=== PATIENT | female | born 1955 | race Caucasian/White ===

== ENCOUNTER 2016-10-14 08:43 | Inpatient (IN) ==
[2016-10-14] MEDS ORDERED: D50W SYRINGE ONE ×2 (08:45→08:46)
[2016-10-14] MEDS ORDERED: D50W SYRINGE IV ONE (08:53)
[2016-10-14] MEDS ORDERED: D5 NS 1,000 ML ONE (08:56)
[2016-10-14 09:30] LABS: MANUAL DIFF NEEDED? NO
[2016-10-14 09:32] LABS: BASO% 0.4 % (0.0-0.8); EOS# 0.01 X1000 (0.0-0.7); EOS% 0.4 % (0.0-10.0); HEMATOCRIT 28.8 % (37.0-47.0); HEMOGLOBIN 8.9 g/dL (12.0-16.0); IMM GRAN# 0.02 X1000 (0.0-0.04); IMM GRAN% 0.7 % (0.0-0.5); LYMPH% 28.6 % (20.5-51.1); MCH 29.4 PG (27-31); MCHC 30.9 g/dL (33-37); MONO% 7.1 % (1.7-9.3); MPV 10.4 FL (7.4-10.4); NEUT% 62.8 % (42.2-75.2); PLT 141 X1000 (130-400); RBC 3.03 XMIL (4.2-5.4)
[2016-10-14 09:38] LABS: BE -11.3 mmoll (-3.0-3.0); BLOOD TYPE ARTERIAL; METHB 1.3 % (0.0-1.5); PCO2(98.6) 28 mmHg (35-45); PO2(98.6) 67 mmHg (60-100); SAMPLE BLOOD; SAO2 91.5 % (95.0-100.0); THB 10.6 g/dL (11.5-17.4)
[2016-10-14 09:41] LABS: DRAW SITE OTHER
[2016-10-14 09:42] LABS: ALLEN TEST NO; MODALITY ROOM AIR
--- NOTE | 2016-10-14 09:49 | EKG Report ---
Test Performed on : 10/14/2016 09:36:58 AM Test Reason : AMS Blood Pressure : / mmHG Vent. Rate : 064 BPM Atrial Rate : 065 BPM P-R Int : 176 ms QRS Dur : 060 ms QT Int : 482 ms P-R-T Axes : 000 085 134 degrees QTc Int : 497 ms Normal sinus rhythm. Low voltage QRS Septal infarct (cited on or before 01-NOV-2009) ST \T\ T wave abnormality, consider inferior ischemia Abnormal ECG When compared with ECG of 14-OCT-2016 09:35, (Unconfirmed) Sinus rhythm. has replaced Junctional rhythm. Inverted T waves have replaced nonspecific T wave abnormality in Inferior leads Nonspecific T wave abnormality, improved in Anterior leads Nonspecific T wave abnormality, worse in Lateral leads Unconfirmed Result
[2016-10-14 10:05] LABS: URINE SOURCE CLEAN CATCH
[2016-10-14 10:09] LABS: INR 0.87 (0.86-1.15); PROTIME 12.2 Seconds (12.1-15.5); PTT PL 31.9 Seconds (22.6-43.9)
[2016-10-14 10:10] LABS: AGAP 13; ALBUMIN 2.3 g/dL (3.5-5.0); ALKALINE PHOSPHATASE 65 U/L (32-104); BUN 29 mg/dL (8-22); CALCIUM 7.7 mg/dL (8.8-10.2); CHLORIDE 118 mmol/L (98-107); CK PROFILE 29 U/L (24-173); COSMO 292; GOT 16 U/L (10-30); GPT 15 U/L (10-36); POTASSIUM 5.1 mmol/L (3.5-5.1); SODIUM 146 mmol/L (136-145); TCO2 15 mmol/L (25-35); TOTAL BILIRUBIN < 0.15 mg/dL (0.20-1.00)
[2016-10-14 10:14] LABS: BILIRUBIN URINE NEGATIVE (NEGATIVE); BLOOD URINE TRACE (NEGATIVE); CLARITY SLIGHTLY CLOUDY (CLEAR); COLOR YELLOW; GLUCOSE URINE NEGATIVE (NEGATIVE); LEUKOCYTES URINE 2+ (NEGATIVE); NITRITE URINE NEGATIVE (NEGATIVE); PROTEIN URINE TRACE mg/dL (NEGATIVE); SP GRAVITY URINE 1.015; UROBILINOGEN URINE NORMAL
[2016-10-14 10:15] LABS: URINE WBC 40 /HPF (<10)
[2016-10-14 10:16] LABS: URINE CULTURE PL NEEDED? YES; URINE EPITHELIAL CELLS <10 /HPF (<10)
[2016-10-14] MEDS ORDERED: NS 1,000 ML IV ONE (12:43)
[2016-10-14] MEDS ORDERED: LEVAQUIN 500 MG in NS 100 ML IV ONE (12:51)
--- NOTE | 2016-10-14 13:00 | Diag Imaging Result Document ---
PROCEDURE NAME: CHEST-PORTABLE - 10/14/2016 PORTABLE CHEST X-RAY, 10/14/2016: COMPARISON: None. FINDINGS: The lungs are normally expanded and clear. Heart size and mediastinal contours are normal. No pneumothorax or pleural effusion. IMPRESSION: Negative exam.
[2016-10-14] MEDS: DUONEB (A & A) INH SCH ×3 (16:12→22:40)
[2016-10-14] MEDS ORDERED: NEO-SYNEPHRINE 50 MG in NS 250 ML IV SCH (18:30)
[2016-10-14] MEDS: HUMALOG DOSE (PARKWAY) SUBQ SCH (20:58)
[2016-10-14] MEDS: NEO-SYNEPHRINE 50 MG in NS 250 ML IV SCH (20:58)
[2016-10-14] MEDS: NS 1,000 ML IV SCH (20:58)
[2016-10-15] MEDS: DUONEB (A & A) INH SCH ×5 (03:20→19:15)
[2016-10-15] MEDS: HUMALOG DOSE (PARKWAY) SUBQ SCH ×6 (06:10→20:47)
[2016-10-15 07:20] LABS: HEMATOCRIT 24.8 % (37.0-47.0); HEMOGLOBIN 7.5 g/dL (12.0-16.0); MCH 29.1 PG (27-31); MCHC 30.2 g/dL (33-37); MCV 96.1 FL (81-99); RBC 2.58 XMIL (4.2-5.4)
[2016-10-15 07:43] LABS: ALBUMIN 2.2 g/dL (3.5-5.0); CALCIUM 7.5 mg/dL (8.8-10.2); MAGNESIUM 2.4 mg/dL (1.5-2.7); POTASSIUM 5.4 mmol/L (3.5-5.1); TOTAL BILIRUBIN 0.2 mg/dL (0.20-1.00); TOTAL PROTEIN 4.1 g/dL (6.3-8.3)
[2016-10-15 09:08] LABS: OCCULT BLOOD 1 POSITIVE (NEGATIVE)
[2016-10-15] MEDS: NS 1,000 ML IV SCH ×2 (09:08→22:51)
[2016-10-15 12:19] LABS: C DIFF ANTIGEN PL NEGATIVE (NEGATIVE); C DIFF TOXIN PL NEGATIVE (NEGATIVE)
--- NOTE | 2016-10-15 13:23 | EKG Report ---
Test Performed on : 10/15/2016 1:15:01 PM Test Reason : r/o rhythm change Blood Pressure : / mmHG Vent. Rate : 096 BPM Atrial Rate : 096 BPM P-R Int : 152 ms QRS Dur : 062 ms QT Int : 350 ms P-R-T Axes : 081 076 243 degrees QTc Int : 442 ms Normal sinus rhythm. Low voltage QRS Cannot rule out Anterior infarct (cited on or before 01-NOV-2009) Abnormal ECG When compared with ECG of 14-OCT-2016 09:36, Vent. rate has increased BY 32 BPM Questionable change in initial forces of Anteroseptal leads ST no longer elevated in Inferior leads T wave inversion now evident in Anterior leads Confirmed by Marcos Chambers MD ([id number]) on 10/19/2016 8:21:59 AM
[2016-10-15] MEDS: NEO-SYNEPHRINE 50 MG in NS 250 ML IV SCH (14:40)
[2016-10-15] MEDS: PROTONIX 80 MG in NS 100 ML IV SCH (16:13)
--- NOTE | 2016-10-15 17:12 | Diag Imaging Result Document ---
PROCEDURE NAME: ABDOMEN/PELVIS W/O CONTRAST - 10/15/2016 CT ABDOMEN PELVIS WITHOUT CONTRAST: FINDINGS: No contrast administered per request of the referring provider. A dose reduction protocol was used. Compared to 01/01/2014. Images of the base of the thorax show bilateral pleural effusions, larger on the left than on the right. There is associated mild compressive atelectasis at the lung bases. There is anasarca. There is a small amount of ascites in the abdomen and pelvis. There is apparent generalized mesenteric edema which likely relates to the anasarca. The stomach is somewhat distended with debris. There is no evidence of bowel obstruction otherwise. There is minimal colonic diverticulosis. There is no diverticulitis identified. There is no abscess identified. There is no free air. There are no acute abnormalities of the liver, spleen, adrenal glands, or pancreas identified. There are no calcified gallstones seen. There is an approximately 1 cm stone in the left renal pelvis. There is no substantial hydronephrosis. There is a Barboza catheter in the urinary bladder. IMPRESSION: 1. Anasarca with bilateral pleural effusions, generalized mesenteric edema, and small amount of abdominal and pelvic ascites. 2. Somewhat distended stomach with debris. No evidence of bowel obstruction otherwise. 3. Minimal diverticulosis of the sigmoid colon. No evidence of diverticulitis. No abscess. No free air. 4. 1 cm stone in left renal pelvis. No substantial hydronephrosis.
--- NOTE | 2016-10-15 18:00 | HISTORY AND PHYSICAL ---
PRIMARY CARE PROVIDER: Dr. Sung. PRIMARY RESOURCE ANALYST: Dr. Simms. CHIEF COMPLAINT: Low blood sugar when found unresponsive. HISTORY OF PRESENT ILLNESS: Ms Kasia Mi is a 61-year-old female who presented to the ER after being found by her slumped over and unresponsive. She was found have a blood glucose level of 23 and she has a medical history of diabetes mellitus type 1, hypothyroidism, CKD stage 3, peptic ulcer disease. Also on admission she was found to be hypotensive and was started on Benito-Synephrine. She is currently still on Benito-Synephrine. She was anemic and a stool obtained to rule out blood was actually positive. She has been started on a Protonix drip and Carafate, clear liquid and abdominal CT is ordered. She had 4+ bacteria in the urine but asymptomatic. She was given a 1 time dose of Levaquin IV. She was admitted to the ICU to allow for the Benito- Synephrine drip, given the positive Hemoccult awaiting for transfer for [facility]. PAST MEDICAL HISTORY: Hypothyroidism, diabetes mellitus type 1 since age of 35 , osteoporosis, cervical cancer, CKD stage 3, iron deficiency anemia, history of peptic ulcer disease but no bleeding, neuropathy, hypertension, vitamin D deficiency. SURGICAL HISTORY: 1. Bilateral tubal ligation. 2. section. 3. 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 SOCIAL HISTORY: Five cigarettes per day for the last 28 years. Stopped drinking alcohol in 2006 and denies illicit drug use. She lives at home with her . FAMILY HISTORY: Mother had pancreatic cancer. Father from suicide. REVIEW OF SYSTEMS: Fourteen point review of systems were complete and all were negative except for those mentioned above HPI. LABORATORY DATA: On admit white blood cells 2000, hemoglobin 8.9, hematocrit 28.8, platelet count 141,000. INR 0.87, PTT 31.9. ABGs pH 7.30, pCO2 28, PO2 67, bicarb 15, base excess -11, lactate 2.2 this is on room air. Sodium was 146, potassium 5.1, BUN 29, creatinine 3.5 , glucose was 26 on admit, calcium 7.7, total bilirubin less than 0.15, AST 16, ALT 15, CK 29, troponin 0.105. Urinalysis trace protein, 10-20 red blood cells, 2+ white blood cells, TNTC white blood cells, microscopic 4+ bacteria present with yeast. Stool for occult blood was positive. C. difficile toxin negative. Alcohol negative. IMAGING: Chest x-ray negative for any acute findings. EKG normal sinus rhythm , rate 96, QTc is 442. PHYSICAL EXAMINATION: VITAL SIGNS: On admit temperature 96.8 degrees, heart rate 52, respiratory rate 18, blood pressure was 85/44, O2 saturation was 97% on room air, 90 pounds, 5 foot inches tall, BMI 16.8. GENERAL: Ms. Kasia Mi is alert, she is able answer all questions appropriately. She is in no acute distress. HEENT: Atraumatic, normocephalic. Pupils equal, round, reactive to light. Extraocular movements are intact. Mucous membranes are dry. NECK: No JVD or carotid bruits noted. CARDIOVASCULAR: S1, S2. Regular rate and rhythm. No rubs, gallops, murmurs. PULMONARY: Decreased in the bases, prolonged expiration. No accessory muscle use or work of breathing noted. GI: Soft, nontender, nondistended, positive bowel sounds x4. Apparently she has had 3 bowel movements in the last 24 hours. NEUROLOGIC: A and O x4. Moves all extremities equally. ASSESSMENT AND PLAN: 1. Hypoglycemia causing unresponsiveness, was admitted with a blood sugar of 23 received D50. 2. Diabetes mellitus type 1. Continue with the sliding scale insulin. Pattern blood glucoses. 3. History of iron deficiency anemia now with possible acute blood loss anemia secondary to possible gastrointestinal bleed. She has a positive heme stool, will start her on a Protonix drip, oral Carafate, clear liquid diet, abdominal, pelvic CT. Transfer to [facility] once bed available for GI consult. 4. History of peptic ulcer disease. See previous number. 5. Hypotension with history of hypertension currently requiring Benito-Synephrine to maintain a blood pressure the 100s and she is receiving saline at 75 an hour. 6. Chronic kidney disease stage 3. She is at baseline with her creatinine 3.5 on admit, baseline ranges anywhere from 3.5 up to 5.1. IV fluid hydration currently. 7. Hypothyroidism. TSH is 5.98, free T4 is 1.06. Will continue Synthroid. 8. Neuropathy, takes Neurontin at home, currently on hold. 9. Tobacco abuse. Cessation discussed. 10. Deep venous thrombosis prophylaxis sequential compression devices. Dictated by KALYN Joe for Seun Rashid MD cc: KALYN Joe MD Dr. Powell Dr. Shah MTDD
[2016-10-15 18:52] LABS: IRON SATURATION 48 %; TIBC 69 ug/dL; TOTAL IRON 33 ug/dL (49-151); UNBOUND IRON 36 ug/dL (112-346)
[2016-10-15] MEDS: CARAFATE LIQUID PO SCH (20:34)
[2016-10-15 23:07] LABS: FERRITIN 310 ng/mL (13-150)
[2016-10-16] MEDS: PROTONIX 80 MG in NS 100 ML IV SCH ×3 (00:45→22:58)
[2016-10-16] MEDS ORDERED: ROCEPHIN 1 GM/NS 1 GM/50 ML IVPB IV SCH (01:00)
[2016-10-16] MEDS ORDERED: VANCOMYCIN IV PER PHARMACY MISC SCH (01:00)
[2016-10-16] MEDS: CARAFATE LIQUID PO SCH ×4 (01:13→19:57)
--- NOTE | 2016-10-16 01:43 | PROGRESS NOTE ---
DATE: 10/15/2016 SUBJECTIVE: The patient notes that she is feeling much better, but still had a low blood sugar this morning. OBJECTIVE: Vital signs: Temp 97.2, pulse 98, respiratory 22, BP 125/61. General: Patient awake, alert, currently in no distress. Neck: Supple. Cardiovascular: Regular rate. Chest: Relatively clear. Abdomen: Soft. Extremities: Moves all extremities. ASSESSMENT: 1. Hypoglycemia, causing significant unresponsiveness prior to presenting to the ER, currently improved. 2. Diabetes type 1. Continue to follow her chronic renal failure. It appears to be her baseline, as her lab in January of 2016 was 4.4. 3. Diarrhea. C. difficile pending. 4. Hypertension. 5. Chronic kidney disease, appears to be her baseline. 6. Hypothyroidism. We will continue Synthroid. PLAN: We will continue to follow patient's labs and her blood sugar. We will continue to use a sliding scale insulin. Her WBCs have improved dramatically from 2.8 to 10.3. Hemoglobin and hematocrit have dropped minimally down to 7.5 and 24. Potassium is mildly elevated at 5.4. Creatinine unchanged at 3.6, unsure what her baseline is currently, although this appears to be her baseline, as the last labs in January 2016 were at 4.6 and 4.0. Further orders as needed. LABS: C. difficile is currently pending. She did have a occult blood positive. Further orders as needed. cc: Seun Rashid MD
[2016-10-16] MEDS ORDERED: VANCOMYCIN 1 GM/NS 1 GM/250 ML IVPB IV ONE ×2 (03:00)
[2016-10-16] MEDS: DUONEB (A & A) INH SCH ×6 (03:01→23:10)
[2016-10-16] MEDS: HUMALOG DOSE (PARKWAY) SUBQ SCH ×2 (06:32→12:05)
[2016-10-16 06:34] LABS: MANUAL DIFF NEEDED? NO
[2016-10-16] MEDS: NEO-SYNEPHRINE 50 MG in NS 250 ML IV SCH (06:40)
[2016-10-16 06:50] LABS: BASO% 0.1 % (0.0-0.8); EOS# 0.03 X1000 (0.0-0.7); EOS% 0.4 % (0.0-10.0); HEMATOCRIT 21.4 % (37.0-47.0); HEMOGLOBIN 6.4 g/dL (12.0-16.0); IMM GRAN# 0.01 X1000 (0.0-0.04); IMM GRAN% 0.1 % (0.0-0.5); LYMPH% 13.1 % (20.5-51.1); MCH 28.6 PG (27-31); MCHC 29.9 g/dL (33-37); MCV 95.5 FL (81-99); MONO# 0.49 X1000 (0.11-0.59); MONO% 7.1 % (1.7-9.3); MPV 10.1 FL (7.4-10.4); NEUT% 79.2 % (42.2-75.2); PLT 130 X1000 (130-400); RBC 2.24 XMIL (4.2-5.4)
[2016-10-16] MEDS ORDERED: SYNTHROID PO SCH (07:00)
[2016-10-16 07:36] LABS: AGAP 14; ALBUMIN 1.9 g/dL (3.5-5.0); ALKALINE PHOSPHATASE 90 U/L (32-104); BUN 33 mg/dL (8-22); CALCIUM 7.3 mg/dL (8.8-10.2); CHLORIDE 113 mmol/L (98-107); COSMO 281; GOT 21 U/L (10-30); GPT 15 U/L (10-36); MAGNESIUM 2.2 mg/dL (1.5-2.7); POTASSIUM 4.9 mmol/L (3.5-5.1); SODIUM 139 mmol/L (136-145); TCO2 12 mmol/L (25-35); TOTAL BILIRUBIN < 0.15 mg/dL (0.20-1.00)
[2016-10-16] MEDS ORDERED: D10W 1,000 ML IV SCH (09:05)
[2016-10-16] MEDS ORDERED: LASIX IV ONE ×2 (09:17→11:50)
--- NOTE | 2016-10-16 10:17 | PROGRESS NOTE ---
DATE: 10/16/2016 SUBJECTIVE: Today Ms. Mi referred to be doing okay. However, the attending nurse refers that her blood glucose has been dropping. Early this morning her fasting glucose was 35 and a recheck was 29. OBJECTIVE: Vital signs: Blood pressure is 92/58, pulse of 88, respirations 20 , temperature 97.2 degrees. General: Ms. Mi is a 61-year-old female. She was in bed. She did not seem to be in any remarkable distress. HEENT: Mucosa is pale and moist. Anicteric. Acyanotic. Neck: Supple. Chest: Air entry is bilaterally reduced. There are a few bibasilar crepitations. Cardiovascular: Regular rate and rhythm. Abdomen: Soft, nontender. There is an old infraumbilical surgical scar. Extremities: About 2+ pedal edema. CORRECTION WORKER: Patient is alert and oriented. Follows commands. Musculoskeletal: No limitations but there is edema all the way to the flank. LABORATORY DATA: WBC 6.88, hemoglobin is 6.4, platelet count of 130,000. Chemistry: Sodium is 139, potassium is 4.9, chloride is 113, bicarb is 12, BUN is 33, creatinine is 3.3 which is the patient's baseline. Albumin is 1.9. Urine so far is positive for gram positive cocci. MEDICATIONS: 1. Ceftriaxone 1 g q.24. 2. Albuterol inhaler. 3. Synthroid. 4. Vancomycin. 5. Pantoprazole drip. ASSESSMENT: Ms. Mi is a 61-year-old female who was admitted yesterday due to altered mental status. Upon presentation, patient was found to have extreme hypoglycemia and anemia was admitted for further medical care. 1. Altered mental status due toxic metabolic encephalopathy (from hypoglycemia and urinary tract infection). 2. Chronic kidney disease stage V. The patient continues to have adequate urine output even at home. 3. Non-gap metabolic acidosis consistent with the degree of renal failure. 4. Normocytic anemia with Hemoccult positive. This has dropped significantly since admission which is concerning for possible GI bleed. The patient will be transferred to [facility] for GI consult. 5. Protein calorie malnutrition. Evidenced by hypoalbuminemia. 6. Hypotension. I think this is a combination of sepsis and also GI bleed. We will continue addressing this. The patient is currently on phenylephrine on a titration dose. Gram-positive cocci urinary tract infection. We are pending the ID and sensitivity. Patient is on antibiotics. PLAIN: So in general Ms. Mi is relatively stable. However, blood glucose continues to be low which I think is a combination of the insulin she was taking and the fact that she does not have very good renal output. The insulin tends to stay longer in her blood causing the persistent hypoglycemia. We will therefore put the patient on D10 to go at 50 mL/h in an attempt to optimize her glycemia. We will also give the patient an infusion of albumin with Lasix to improve on the edema. As I said, the [facility]. Critical time spent 45 minutes cc: Daniel Castro MD MTDStephie
[2016-10-16] MEDS ORDERED: ALBUMIN 25% IV ONE (14:03)
[2016-10-16] MEDS ORDERED: NS 1,000 ML IV SCH (14:03)
[2016-10-16] MEDS: D5 NS 1,000 ML IV SCH (14:50)
--- NOTE | 2016-10-16 15:06 | HISTORY AND PHYSICAL ---
PRIMARY CARE DOCTOR: Dr. Sung. BALANCE STAFF STAKER: Dr. Cordelia Simms. HISTORY OF PRESENT ILLNESS: She presented with low blood sugar and found unresponsive, apparently hypotensive. This 61-year-old presented to the ER after found by her slumped over and unresponsive. She was found to have blood glucose level at 23. She has a medical history of diabetes mellitus type 1, hypothyroidism, chronic kidney disease stage 3, peptic ulcer disease. Also on admission, found to be hypotensive and started on Benito-Synephrine and was on Benito-Synephrine and got transferred over here to [place]. She is anemic and stool obtained to rule out blood was actually positive. She has been started on Protonix drip, Carafate, and a clear liquid diet. Abdominal CT was ordered. She has 4+ bacteria in the urine but asymptomatic. Given a one time dose of Levaquin and transferred here for further evaluation. Will probably need an EGD and colonoscopy. PAST MEDICAL HISTORY: 1. Hypothyroidism. 2. Diabetes mellitus, type 1, since age 35. 3. Osteoporosis. 4. History of cervical cancer. 5. Chronic kidney disease stage 3. 6. Iron deficiency anemia. 7. History of peptic ulcer disease, but no bleeding. 8. History of peripheral polyneuropathy. 9. Hypertension. 10. Vitamin D deficiency. PAST SURGICAL HISTORY: 1. Bilateral tubal ligation. 2. section. 3. Right 4th toe amputation secondary to a diabetic foot ulcer. SOCIAL HISTORY: Five cigarettes per day for the last 28 years. Stopped drinking alcohol in 2006. She denies any history of illicit drug use. Lives at home with her . FAMILY HISTORY: Mother had pancreatic cancer. Father from suicide. REVIEW OF SYSTEMS: General: She states she is not aware of any weight change. She has been "little all her life", by her words. HEENT: Unremarkable. Respiratory: No increased work of breathing or dyspnea. Cardiovascular: No chest pain or tachy palpitation. GI: Unremarkable. : Unremarkable. Musculoskeletal/Neurologic: No. No significant complaints. She had some very different abrasions on the anterior knees that appear to be healing. Chest x-ray was negative for acute findings. EKG: Normal sinus rhythm. Here, her transfer rate has been 150 and regular. We are going to check an EKG to make sure there is no atrial flutter. PHYSICAL EXAMINATION: GENERAL: Afebrile. Awake, alert, and oriented x3. Pleasant. VITAL SIGNS: Temp 98.0 degrees, pulse 88, respirations 18, blood pressure 104/33. Present reading is around 85/30. CVP less than 6 cm. No distended. NECK: No distended neck veins. LUNGS: Clear anterior, lateral, posterior. CARDIOVASCULAR: Regular rhythm. There appears to be supraventricular tachycardia. Possibly sinus tachycardia versus atrial flutter. We will check an EKG. ABDOMEN: Soft, nontender, nondistended. EXTREMITIES: Without clubbing, cyanosis, or edema. The blood sugars when she presented was 31. The second one was 249, and then she had one in the 29 yesterday and then this morning it was 274. LABORATORY DATA: On presentation, hemoglobin was 8.9, hematocrit 28. This morning hemoglobin was 6.4, hematocrit 21. Serum creatinine came down from 3.5 to 3.3. Albumin is 1.9. Liver functions: Transaminases unremarkable. Bilirubin unremarkable. Iron was low at 33. Total iron- binding capacity was 69. O2 saturation was 48%. Ferritin was 310. Urine was cloudy 4+ bacteria. Blood gases from yesterday: pH was 7.3, pCO2 of 28. PO2 is 67. O2 saturation was 86% on 21% FiO2. Abdominal pelvic CT done yesterday: Anasarca and bilateral pleural effusions. Generalized mesenteric edema and small amount of abdominal and pelvic ascites, somewhat distended stomach with debris. No evidence of bowel obstruction. Minimal diverticulosis of the sigmoid colon. No evidence of diverticulitis. No abscess. A 1 cm stone in the left renal pelvis with no hydronephrosis. ASSESSMENT AND PLAN: 1. Altered mental status due to toxic metabolic encephalopathy, multifactorial. Hypoglycemia is a tract infection. 2. Chronic kidney disease stage 3. Continue IV fluids. Actually, I think she was listed as a stage 5 but may have [id number]. 3. Non anion gap acidosis consistent with a degree of renal failure. 4. Normocytic anemia. But low iron and has dropped since admission. We will need to evaluate for ongoing GI bleed. GI to see. 5. Protein calorie malnutrition. Advanced hypoalbuminemia. 6. Hypotension. Suspect possible sepsis and GI bleed together. 7. ID culture is pending. We will continue present orders of vancomycin 1 g was given Lasix 40 mg was given 1 time and then she was given vancomycin q.12 hours, Carafate 1 g 6. Rocephin 1 g to 24 hours. We will need to continue to give her some fluids given her hypertension. We will ask GI and Nephrology to see. cc: Henrry Bunch MD
[2016-10-16] MEDS ORDERED: PROTONIX IV SCH (15:15)
[2016-10-16] MEDS: HUMALOG SUBQ SCH ×2 (17:09→21:00)
[2016-10-17] MEDS: ROCEPHIN 1 GM/NS 1 GM/50 ML IVPB IV SCH (00:53)
[2016-10-17] MEDS: D5 NS 1,000 ML IV SCH ×3 (01:51→15:13)
[2016-10-17] MEDS: CARAFATE LIQUID PO SCH ×4 (01:53→19:54)
[2016-10-17] MEDS: DUONEB (A & A) INH SCH ×4 (03:35→14:47)
--- NOTE | 2016-10-17 05:26 | EKG Report ---
Test Performed on : 10/16/2016 1:33:52 PM Test Reason : SVT VS AFLU Blood Pressure : / mmHG Vent. Rate : 153 BPM Atrial Rate : 104 BPM P-R Int : 000 ms QRS Dur : 060 ms QT Int : 302 ms P-R-T Axes : 000 058 145 degrees QTc Int : 482 ms Supraventricular tachycardia. Low voltage QRS Cannot rule out Anteroseptal infarct (cited on or before 01-NOV-2009) Abnormal ECG When compared with ECG of 15-OCT-2016 13:15, (Unconfirmed) Vent. rate has increased BY 57 BPM Questionable change in initial forces of Septal leads Confirmed by Elke HOLLAND, Dalton Goldstein ([id number]) on 10/19/2016 9:11:57 PM
[2016-10-17 05:45] LABS: MANUAL DIFF NEEDED? NO
[2016-10-17 05:56] LABS: BASO% 0.2 % (0.0-0.8); EOS# 0.04 X1000 (0.0-0.7); EOS% 0.7 % (0.0-10.0); HEMATOCRIT 30.8 % (37.0-47.0); HEMOGLOBIN 10.3 g/dL (12.0-16.0); IMM GRAN# 0.03 X1000 (0.0-0.04); IMM GRAN% 0.5 % (0.0-0.5); LYMPH# 0.56 X1000 (1.2-3.4); LYMPH% 9.8 % (20.5-51.1); MCH 29.9 PG (27-31); MCHC 33.4 g/dL (33-37); MCV 89.3 FL (81-99); MONO# 0.29 X1000 (0.11-0.59); MONO% 5.1 % (1.7-9.3); MPV 10.2 FL (7.4-10.4); NEUT% 83.7 % (42.2-75.2); PLT 87 X1000 (130-400); RBC 3.45 XMIL (4.2-5.4)
--- NOTE | 2016-10-17 05:57 | Carotid Study ---
DATE: 10/16/2016 PROCEDURE: Carotid duplex imaging. REFERRING PHYSICIAN: Henrry Bunch MD INTERPRETING PHYSICIAN: Ajay Steward MD TECH: [place] INDICATIONS: The patient is syncopal, is tachycardic. OBSERVED DATA RIGHT LEFT Brachial Blood Pressure Carotid Pulse Bruits: Carotid/Sub DIAGRAM OF ULTRASOUND IMAGING R L RIGHT INT EXT INT EXT LEFT Quinn (cm/s) Quinn (cm/s) Subclavian 51/0 Subclavian 54/0 CCA Proximal 47/14 CCA Proximal 67/16 CCA Distal 42/14 CCA Distal 48/19 Bulb 47/16 Bulb 44/19 ICA Proximal 39/18 ICA Proximal 41/20 ICA Mid 62/24 ICA Mid 77/24 ICA Distal 91/37 ICA Distal 93/34 ECA 78/16 ECA 66/16 Vertebral Antegrade, 50/14 Vertebral Antegrade, 49/17 ICA/CCA Ratio 1.9 ICA/CCA Ratio 1.4 % Stenosis 0-39 % Stenosis 0-39 No significant plaque is seen. PHYSICIAN INTERPRETATION: No significant plaque disease identified. There is antegrade vertebral flow bilaterally. cc: MD Henrry Kuhn MD
[2016-10-17 06:01] LABS: PROTIME 10.5 Seconds (9.2-11.7); PTT 33.4 Seconds (22.0-36.0)
[2016-10-17 06:23] LABS: POTASSIUM 4.5 mmol/L (3.5-5.1)
[2016-10-17 06:24] LABS: ALBUMIN 2.5 g/dL (3.5-5.0); MAGNESIUM 1.8 mg/dL (1.5-2.7); TOTAL BILIRUBIN 0.33 mg/dL (0.20-1.00); TOTAL PROTEIN 4.6 g/dL (6.3-8.3)
[2016-10-17 06:29] LABS: CALCIUM 6.7 mg/dL (8.8-10.2)
[2016-10-17] MEDS: SYNTHROID PO SCH (07:15)
[2016-10-17] MEDS: HUMALOG SUBQ SCH ×4 (07:23→20:24)
[2016-10-17] MEDS ORDERED: CALCIUM GLUCONATE 1 GM in NS 50 ML IV ONE (07:31)
[2016-10-17] MEDS: PROTONIX 80 MG in NS 100 ML IV SCH ×2 (08:44→18:08)
--- NOTE | 2016-10-17 08:54 | PROGRESS NOTE ---
DATE: 10/17/2016 SUBJECTIVE: She is awake and alert. She did have some nausea this morning, getting a breathing treatment at the present time. She would like to be pulled up in the bed, but otherwise feels better. OBJECTIVE: Vital Signs: Temp 98.5 degrees, pulse 87, respirations 24, blood pressure 145/83. HEENT: CVP less than 6 cm. Lungs: Clear in all lung gallardo. Cardiovascular exam: Regular rhythm and rate without murmur or S3. Abdomen: Soft. Positive bowel sounds. LABS AND X-RAYS: White blood cell count this morning 5710, hematocrit is up to 30 from 21 yesterday, platelet count 87,000. Chemistry: Sodium 136, potassium 4.5, chloride 110, BUN 29, creatinine 2.9. Blood sugars 178, 123, 172. Calcium 6.7 and magnesium 1.8. She had a carotid Doppler study done yesterday read by Dr. Steward. No significant plaque or disease. There is antegrade vertebral flow bilaterally. Her EKG from yesterday appears to be supraventricular tachycardia consistent with sinus tachycardia. Rate is better controlled after she got some fluid. ASSESSMENT AND PLAN: 1. Altered mental status due to toxic metabolic encephalopathy. Multifactorial hypoglycemia. Blood sugars doing better. 2. Chronic kidney disease. I guess it would be at least stage III. Making urine output. 3. Non anion gap acidosis consistent with her degree of renal failure. 4. Normocytic anemia. She got 2 units of blood yesterday. Suspicion for gastrointestinal bleed. Gastroenterology following. Probably will need esophagogastroduodenoscopy and colonoscopy. 5. Protein calorie malnutrition. Advanced hypoalbuminemia. Encourage oral intake. 6. Hypotension. Blood pressure better. Infectious disease and cultures pending. Continue present antibiotics. Urine did show bacteria and sediment on presentation. She is on ceftriaxone 1 g q. 24 hours. She is on vancomycin 1 g IV q. 96 hours. Getting Synthroid 100 mcg p.o. daily. I gave her 1 amp of calcium gluconate this morning as well. Review of her orders: I do not see any change at this point. She is getting D 5 normal saline I believe at 100 mL an hour. cc: Henrry Bunch MD
[2016-10-17] MEDS: NEO-SYNEPHRINE 50 MG in NS 250 ML IV SCH (15:09)
[2016-10-17] MEDS: ICAR-C PO SCH (20:25)
[2016-10-17] MEDS: CENTRUM SILVER PO SCH (20:25)
[2016-10-18] MEDS: ROCEPHIN 1 GM/NS 1 GM/50 ML IVPB IV SCH (00:01)
[2016-10-18] MEDS: D5 NS 1,000 ML IV SCH ×3 (00:01→21:32)
[2016-10-18] MEDS: CARAFATE LIQUID PO SCH ×4 (01:42→20:15)
[2016-10-18] MEDS: DUONEB (A & A) INH SCH ×6 (04:07→22:55)
[2016-10-18] MEDS: PROTONIX 80 MG in NS 100 ML IV SCH ×2 (04:13→13:38)
[2016-10-18] MEDS: HUMALOG SUBQ SCH ×4 (06:10→20:15)
[2016-10-18] MEDS: SYNTHROID PO SCH (06:10)
[2016-10-18 06:15] LABS: BASO% 0.2 % (0.0-0.8); EOS# 0.04 X1000 (0.0-0.7); EOS% 0.8 % (0.0-10.0); HEMATOCRIT 35.6 % (37.0-47.0); HEMOGLOBIN 11.8 g/dL (12.0-16.0); LYMPH# 0.42 X1000 (1.2-3.4); LYMPH% 8.6 % (20.5-51.1); MANUAL DIFF NEEDED? YES; MCH 29.8 PG (27-31); MCHC 33.1 g/dL (33-37); MCV 89.9 FL (81-99); MONO# 0.16 X1000 (0.11-0.59); MONO% 3.3 % (1.7-9.3); MPV 10.5 FL (7.4-10.4); NEUT% 87.1 % (42.2-75.2); PLT 83 X1000 (130-400); RBC 3.96 XMIL (4.2-5.4)
[2016-10-18 06:29] LABS: BANDS 6 % (0-1); LYMPHS 6 % (21-51); MONO 4 % (1-9)
[2016-10-18 06:31] LABS: ALBUMIN 2.3 g/dL (3.5-5.0); CALCIUM 7.2 mg/dL (8.8-10.2); MAGNESIUM 1.8 mg/dL (1.5-2.7); POTASSIUM 4.2 mmol/L (3.5-5.1); TOTAL BILIRUBIN 0.26 mg/dL (0.20-1.00); TOTAL PROTEIN 4.7 g/dL (6.3-8.3)
--- NOTE | 2016-10-18 07:40 | CONSULTATION ---
DATE OF CONSULTATION: 10/17/2016 REFERRING PHYSICIAN: Dr. Henrry Bunch PRIMARY CARE DOCTOR: Dr. Lee Sung SUBJECTIVE: Patient currently resting in bed. She denies any nausea, vomiting , vomiting blood or passing blood in the stools. She was admitted on 10/14/2016 with altered mental status, toxic metabolic encephalopathy, hypoglycemia which is improving. The patient has a known history of chronic kidney disease being followed by Nephrology team. The patient also was noted to be severely anemic on admission. She has been transfused 2 units on 10/16/2016. Gastroenterology was consulted to evaluate for EGD and colonoscopy. Patient denies any fevers, rigors, chills. OBJECTIVE: Vital signs: Temperature 98.6, pulse rate of 126, respiratory rate 28, pressure 150/73, saturating 92% on room air. Body weight of 96 pounds 3.2 ounces. BMI of 18.8 kg. General appearance: Thinly built, lying in bed, in no distress. HEENT: Pale conjunctivae. No icterus. Pupils equal, react to light. Neck: Supple. Chest: Decreased in the bases. Cardiovascular: Tachycardic. Abdomen: Soft, nontender, nondistended. Bowel sounds are present. No guarding. Extremities: No cyanosis, clubbing. Neurologic: She is alert, awake, and answers questions. LABORATORY DATA: Her hemoglobin and hematocrit is 10.3 and 30.8, white count of 5.7, platelet count of 87,000. MCV of 89.3. Her admission hemoglobin and hematocrit was 8.9 , 28.8 and hemoglobin and hematocrit dropped down to 6.4, 21.4 on 10/16. MCV is 89.3, INR is 1, PT of 10.5, PTT of 33.4. Sodium 130, potassium 4.5, chloride 110, bicarb of 11, anion gap 15, BUN of 29, creatinine of 2.9, glucose of 132, calcium is 6.7, phosphorus 1.8. Total bilirubin is 0.33, AST 14, ALT 12, alkaline phosphatase 44, total protein 4.6, albumin of 2.5. TSH is 9.86. Glucose of 81. Urinalysis showing cloudy trace protein, positive white cells. Positive red cells. Occult blood in the stools positive. Alcohol level in her body was 0 and C. difficile antigen is negative. IMAGING: Abdomen pelvis CT showed: 1. Anasarca with bilateral pleural effusions, generalized mesenteric edema and small amount of abdominal pelvic ascites. 2. Somewhat distended stomach with debris. No evidence of any bowel obstruction otherwise. 3. Minimal diverticulosis of the sigmoid colon. No evidence of diverticulitis. No abscess or free air. 4. A 1 cm stone in the left renal pelvis, no substantial hydronephrosis noted. IMPRESSION/PLAN: 1. Hypoglycemia causing metabolic encephalopathy and altered mental status which is improved. 2. Chronic renal insufficiency being followed by nephrology team. 3. Severe anemia. Hemoglobin of 6.4, required 2 units blood transfusion. Positive Hemoccult. We will keep her on PPIs. We will watch her hemoglobin and hematocrit and transfuse as needed. Schedule EGD tomorrow. 4. The patient is still on pressor support so we will hold off on doing any kind of colonoscopy bowel prep until her blood pressure stabilizes. 5. Kidney stones being followed by the primary team. 6. Bilateral effusions, anasarca, malnutrition. Start Glucerna 1 can p.o. t.i.d. 7. Diabetes mellitus type 1, hypothyroidism and osteoporosis. Per the primary care team. 8. Evidence of gastric retention on imaging may raise a question of pyloric stenosis which can explain her weight loss and malnourished state. We will evaluate the EGD tomorrow. The risks, benefits, indications and options were discussed with the patient. cc: MD Cordelia Layton MD Manish Arora, MD [facility] HOSPITALStephie
--- NOTE | 2016-10-18 09:09 | PROGRESS NOTE ---
DATE: 10/18/2016 SUBJECTIVE: Ms. Pedroza has had a better night. She is planning on going for EGD this morning. OBJECTIVE: Vital signs: Temperature 97.3 degrees, pulse 68, respirations 16, blood pressure 122/78. HEENT: Pupils were equal. CVP less than 6 cm. Lungs: Clear in all lung gallardo. Cardiovascular exam: Regular rhythm and rate without murmur or S3. Abdomen: Soft. Skin: Warm and dry. : Good urine output with over 4 L. LABS: White count 4910, hematocrit 35, platelet count 83,000. Sodium 140, potassium 4.2, chloride 115. BUN 28, creatinine 2.9. Blood sugars: 147, 280, 168, 185. ASSESSMENT AND PLAN: 1. Hypoglycemia causing metabolic encephalopathy, altered mental status. 2. Chronic renal insufficiency. Continue to follow. 3. Severe anemia. Hemoglobin 6.4, required 2 units of blood. Plan is for an esophagogastroduodenoscopy today. She is on proton pump inhibitor. 4. We were able to turn off her pressor support. May require pressor support for over 24 hours. 5. Kidney stones followed. No sign of active nephrosis or hydronephrosis. 6. Bilateral effusions, anasarca, malnutrition. 7. Diabetes mellitus type 1. We are following her sugars; they look pretty well controlled at this point. Serum creatinine 2.9. Review of her orders: She is on levothyroxine or Synthroid 100 mcg p.o. daily. Multivitamin was taken twice a day. She is getting D 5 normal saline at 100 mL an hour. She is getting ceftriaxone 1 g q. 24 hours and on Carafate 1 g q. 6 hours. cc: Henrry Bunch MD
[2016-10-18] MEDS ORDERED: DIPRIVAN 1% ONE (09:20)
[2016-10-18] MEDS ORDERED: ANESTHESIA PB SET 88 IN 5742 ONE (09:36)
[2016-10-18] MEDS ORDERED: LR 1,000 ML ONE (09:36)
[2016-10-18] MEDS ORDERED: XYLOCAINE-MPF 2% ONE (09:36)
[2016-10-18] MEDS: ICAR-C PO SCH ×2 (11:01→20:15)
[2016-10-18] MEDS: CENTRUM SILVER PO SCH ×2 (11:02→20:15)
[2016-10-18] MEDS ORDERED: PROTONIX IV SCH (15:15)
--- NOTE | 2016-10-18 19:07 | OPERATIVE NOTE ---
PROCEDURE DATE: 10/18/2016 REQUESTING PHYSICIAN: Tay Martinez MD PROCEDURE: Esophagogastroduodenoscopy. PREOPERATIVE DIAGNOSES: 1. Altered mental status, secondary to metabolic encephalopathy, secondary to hypoglycemia, which is getting better. 2. Chronic renal insufficiency.. 3. Anemia, dropped hemoglobin to 6, requiring blood transfusion. 4. Malnutrition. POSTOPERATIVE DIAGNOSES: 1. Erosive esophagitis, LA grade 2 in the distal esophagus. 2. Hiatal hernia visualized, sliding type. 3. Gastritis in the body and antrum. 4. Normal fundus, cardia, incisura. 5. Duodenitis in the duodenal bulb. 6. Duodenal ulcers in the duodena bulb x2. 7. Normal 2nd portion duodenum. ESTIMATED BLOOD LOSS: None. COMPLICATIONS: None. ANESTHESIA: Monitored anesthesia care. SPECIMENS: None. DESCRIPTION OF PROCEDURE: After informed consent, the patient explained the risks, benefits, indications, alternatives, the patient was prepared for EGD. The patient was brought to the OR, turned in the left lateral position a bite block was placed. After adequate monitored anesthesia care, the upper scope was gently introduced into the oral vestibule, traversed all the way to the second portion of the esophagus normal. In the proximal middle 3rd the esophagus showed evidence of erythema, friability, erosions, suggesting erosive esophagitis. A hiatal hernia was noted measuring about 3 cm, sliding type. The scope was then advanced into the stomach showed evidence of erosions in the body and antrum suggesting erosive gastritis. Retroflexion in the stomach revealed normal fundus, cardia, incisura. The hiatal hernia was also visualized on retroflexion. The duodenum showed evidence of erythema, friability, and 2 ulcers into the duodenal bulb suggesting erosive duodenitis and duodenal ulcerations. The 2nd portion of the duodenum appeared normal. The scope was withdrawn into the stomach. The air was aspirated as the scope was withdrawn. I did not visualize any evidence of any fresh or old blood in the entire EGD. The air was aspirated and the scope withdrawn. The patient tolerated the procedure, currently monitored in the OR in stable condition. I discussed the findings with the patient and family and all questions were answered. RECOMMENDATIONS: 1. The patient will be on Protonix drip for 72 hours and transition to Protonix twice daily. She will continue to be on Protonix once daily on discharge for 3 to 6 months and then wean down to Zantac once or twice daily. 2. Patient will need to avoid NSAIDs. 3. The patient will avoid excessive tea, coffee, soda, tomatoes, onions, spicy foods. The patient also be on reflux lifestyle changes. 4. The patient will be on Carafate 1 g 6 hours for 6 weeks. 5. The patient will be on iron-C 1 capsule b.i.d. for 3 months. 6. The patient will be on Centrum Silver, 1 capsule p.o. once daily. 7. The patient follow up with us in the clinic in 3 months after discharge. cc: MD Tay De Anda MD MTDD
[2016-10-19] MEDS: ROCEPHIN 1 GM/NS 1 GM/50 ML IVPB IV SCH (01:02)
[2016-10-19] MEDS: CARAFATE LIQUID PO SCH ×4 (01:02→19:40)
[2016-10-19] MEDS: DUONEB (A & A) INH SCH ×6 (02:49→22:58)
[2016-10-19 06:31] LABS: EOS# 0.03 X1000 (0.0-0.7); EOS% 0.6 % (0.0-10.0); HEMATOCRIT 34.5 % (37.0-47.0); HEMOGLOBIN 11.4 g/dL (12.0-16.0); LYMPH# 0.27 X1000 (1.2-3.4); LYMPH% 5.6 % (20.5-51.1); MANUAL DIFF NEEDED? YES; MCH 29.7 PG (27-31); MCV 89.8 FL (81-99); MONO# 0.27 X1000 (0.11-0.59); MONO% 5.6 % (1.7-9.3); MPV 10.6 FL (7.4-10.4); NEUT% 88.2 % (42.2-75.2); PLT 75 X1000 (130-400); RBC 3.84 XMIL (4.2-5.4)
[2016-10-19 06:46] LABS: ALBUMIN 2.3 g/dL (3.5-5.0); CALCIUM 7.5 mg/dL (8.8-10.2); MAGNESIUM 1.8 mg/dL (1.5-2.7); POTASSIUM 3.9 mmol/L (3.5-5.1); TOTAL BILIRUBIN 0.18 mg/dL (0.20-1.00); TOTAL PROTEIN 4.8 g/dL (6.3-8.3)
[2016-10-19] MEDS: SYNTHROID PO SCH (07:06)
[2016-10-19] MEDS: HUMALOG SUBQ SCH ×4 (07:06→20:07)
[2016-10-19 07:34] LABS: BANDS 14 % (0-1); LYMPHS 6 % (21-51); MONO 6 % (1-9)
[2016-10-19] MEDS: CENTRUM SILVER PO SCH ×2 (08:03→20:07)
[2016-10-19] MEDS: ICAR-C PO SCH ×2 (08:03→20:08)
[2016-10-19] MEDS: D5 NS 1,000 ML IV SCH ×2 (08:04→18:01)
--- NOTE | 2016-10-19 08:59 | PROGRESS NOTE ---
DATE: 10/19/2016 SUBJECTIVE: She was sitting up. She was eating some breakfast and states she feels better. OBJECTIVE: Temperature 97.1 degrees, pulse 75, respirations 20, and blood pressure 109/45.HEENT: Pupils equal and round. CVP less than 6 cm. Lungs: Clear in all lung gallardo. Cardiovascular: Regular rhythm and rate without murmur or S3. Abdomen: Soft. Skin: Warm and dry. LABORATORY: Labs from this morning, white count 4850. Hemoglobin was 11, hematocrit 34, and platelet count 75,000. Chemistry: Sodium 144, potassium 3.9, chloride 119, bicarb 9, BUN 27, and creatinine 2.7. Anion gap was 16. Blood sugar 108, [address] Bustamante performed EGD yesterday and found erosive esophagitis. LA grade 2 at the distal esophagus. Hiatal hernia, sliding type. Gastritis in the body and antrum. Normal fundus and cardia and incisura. Duodenitis in duodenal bulb. Duodenal ulcers in the duodenal bulb x2 with a normal second portion of duodenum. ASSESSMENT AND PLAN: 1. Altered mental status secondary to metabolic encephalopathy and hypoglycemia. This is better. 2. Chronic renal insufficiency. Appears fairly stable. 3. Blood loss anemia requiring blood transfusion and has found esophagitis. Hiatal hernia, gastritis and duodenal ulcers. Continue proton pump inhibitor and Carafate. 4. Malnutrition. Encourage p.o. intake. Review of her orders and I will see any change. She is on Carafate 1 g q.6 hours. Multivitamin. She is getting Synthroid 100 mcg daily. Iron 1 b.i.d. at D5 normal saline at 100 mL an hour. She is getting ceftriaxone 1 g IV q.24 hours. 5. Note, we will repeat a chest x-ray today. Follow her hemoglobin and hematocrit. Follow her blood sugars. cc: Henrry Bunch MD
[2016-10-19] MEDS: PROTONIX IV SCH ×2 (09:10→20:08)
[2016-10-19] MEDS: SODIUM CHLORIDE 0.9% INJ SCH ×2 (09:10→20:08)
--- NOTE | 2016-10-19 09:43 | Diag Imaging Result Document ---
PROCEDURE NAME: CHEST-PORTABLE - 10/19/2016 AP PORTABLE CHEST AT 0855 HOURS: FINDINGS: There are bilateral pleural effusions. The heart size and pulmonary vascularity are within normal limits. There is perihilar pulmonary edema. None of these findings were present on 10/14/2016. IMPRESSION: Pulmonary edema and pleural effusions.
[2016-10-20] MEDS: ROCEPHIN 1 GM/NS 1 GM/50 ML IVPB IV SCH (01:31)
[2016-10-20] MEDS: CARAFATE LIQUID PO SCH ×4 (01:31→20:30)
[2016-10-20] MEDS: DUONEB (A & A) INH SCH ×6 (02:55→23:35)
[2016-10-20] MEDS: D5 NS 1,000 ML IV SCH ×3 (04:32→14:34)
[2016-10-20] MEDS ORDERED: VANCOMYCIN 1 GM/NS 1 GM/250 ML IVPB IV SCH (06:00)
[2016-10-20] MEDS: SYNTHROID PO SCH (06:37)
[2016-10-20] MEDS: HUMALOG SUBQ SCH ×4 (06:38→21:17)
[2016-10-20 07:37] LABS: EOS# 0.01 X1000 (0.0-0.7); EOS% 0.2 % (0.0-10.0); HEMATOCRIT 32.4 % (37.0-47.0); HEMOGLOBIN 10.7 g/dL (12.0-16.0); IMM GRAN# 0.02 X1000 (0.0-0.04); IMM GRAN% 0.4 % (0.0-0.5); LYMPH# 0.12 X1000 (1.2-3.4); LYMPH% 2.5 % (20.5-51.1); MANUAL DIFF NEEDED? YES; MCH 30.1 PG (27-31); MCV 91.3 FL (81-99); MONO# 0.16 X1000 (0.11-0.59); MONO% 3.3 % (1.7-9.3); MPV 10.4 FL (7.4-10.4); NEUT% 93.6 % (42.2-75.2); PLT 59 X1000 (130-400); RBC 3.55 XMIL (4.2-5.4)
[2016-10-20 07:44] LABS: ALBUMIN 2.2 g/dL (3.5-5.0); CALCIUM 7.6 mg/dL (8.8-10.2); MAGNESIUM 1.8 mg/dL (1.5-2.7); POTASSIUM 3.5 mmol/L (3.5-5.1); TOTAL BILIRUBIN 0.13 mg/dL (0.20-1.00); TOTAL PROTEIN 4.5 g/dL (6.3-8.3)
[2016-10-20 07:59] LABS: FREE T4 0.97 ng/dL (0.93-1.70)
[2016-10-20] MEDS: ICAR-C PO SCH ×2 (08:17→20:30)
[2016-10-20] MEDS: CENTRUM SILVER PO SCH ×2 (08:17→20:30)
[2016-10-20] MEDS: PROTONIX IV SCH ×2 (09:00→20:30)
[2016-10-20 09:57] LABS: BANDS 14 % (0-1); MONO 2 % (1-9)
[2016-10-20 09:58] LABS: HYPOCHROM 1+; LARGE PLATELETS 1+
--- NOTE | 2016-10-20 10:12 | PROGRESS NOTE ---
DATE: 10/20/2016 SUBJECTIVE: She is complaining of pain. She is awake. She wants more for her back pain and is pretty tearful about it. She is not eating well, not eating much. We will advance her to a regular diet. She remains afebrile. OBJECTIVE: Vital signs: Temperature 97.4 degrees, pulse 88, respirations 15, blood pressure 103/60. Eyes: Pupils are equal, round. Lungs: Clear in all lung gallardo. Cardiovascular exam: Regular rhythm and rate without murmur or S3. Abdomen: Soft. Skin: Warm and dry. : Urine output was over 4 L. LAB: White count 4800, hematocrit is 32, platelet count 59,000. Chemistries: Sodium 139, potassium 3.5, chloride 115, BUN 25, creatinine 2.6 Blood sugars 263, 111, 85. X-RAY: Her chest x-ray from yesterday: Pulmonary edema, pleural effusions. ASSESSMENT: 1. Altered mental status metabolic encephalopathy. I think it is multifactorial. She did present with hypoglycemia. She had gastrointestinal blood loss. She also has poor protein calorie malnutrition and is on pain medication. 2. Chronic renal insufficiency, stable. Continue present fluids. 3. Some pleural effusions on chest x-ray. I think this is related to her nutritional state as much as anything. Encourage oral intake. Advance her to regular diet. PLAN: On labs, her hematocrit is stable. Hemoglobin 10 and hematocrit 32. Encourage p.o. intake. She has physical therapy started. Review of her medications: She is on Carafate 1 g q. 6 hours. We will let her have some Ultram for the pain. Encouraged physical therapy. Increase activity. She will be moved to a regular floor. cc: Henrry Bunch MD
[2016-10-20] MEDS ORDERED: NS 400 ML IV ONE ×2 (11:10→13:38)
[2016-10-20] MEDS: ULTRACET 37.5MG/325MG PO SCH ×2 (13:21→20:30)
[2016-10-20] MEDS ORDERED: VANCOMYCIN IV PER PHARMACY MISC SCH (13:45)
[2016-10-20] MEDS ORDERED: VANCOMYCIN 1 GM/NS 1 GM/250 ML IVPB IV ONE (14:00)
[2016-10-20] MEDS: NEO-SYNEPHRINE 50 MG in NS 250 ML IV SCH (14:53)
[2016-10-20] MEDS ORDERED: AMIDATE ONE (16:05)
[2016-10-20] MEDS ORDERED: QUELICIN ONE (16:05)
[2016-10-20] MEDS ORDERED: M.V.I.-12 10 ML, FOLIC ACID 1 MG, MAGNESIUM SULFATE 1 GM, THIAMINE 100 MG in NS 1,000 ML IV SCH (16:30)
[2016-10-20 16:56] LABS: ALLEN TEST YES; BE -22.5 mmoll (-3.0-3.0); BLOOD TYPE ARTERIAL; DRAW SITE L RADIAL; O2(CT) 14.5 mL/dL (15.0-23.0); PCO2(98.6) 37 mmHg (35-45); PO2(98.6) 264 mmHg (60-100); SAMPLE BLOOD; SAO2 98.3 % (95.0-100.0); SRATE 16 BPM; THB 10.2 g/dL (11.5-17.4); TVOL 500 mL
--- NOTE | 2016-10-20 16:56 | Diag Imaging Result Document ---
PROCEDURE NAME: CHEST-PORTABLE - 10/20/2016 PORTABLE SUPINE CHEST: FINDINGS: Compared to study performed earlier. Interval placement of an endotracheal tube. This is in good position with the tip located approximately 5 cm above the vilma. Interval placement of a nasogastric tube which overlies the esophagus and stomach. The distal portion is not included on this exam. IMPRESSION: Endotracheal tube in good position.
[2016-10-20 16:57] LABS: pH(98.6) 6.96 (7.35-7.45)
[2016-10-20 16:58] LABS: MODALITY VENTILATOR
--- NOTE | 2016-10-20 17:02 | PROGRESS NOTE ---
DATE: 10/20/2016 4:10 PM: She started having agonal respirations, hypoxemic. We had been giving her fluid, poor urine output and marginal blood pressure. Respirations became agonal and she became more lethargic and she was intubated. To review she came in on 10/14/2016. Dr. Cordelia Simms follows her. Her found her slumped over and unresponsive and found to have a glucose of 23. PAST MEDICAL HISTORY: Diabetes mellitus type 1, hypothyroidism, chronic kidney disease, peptic ulcer disease. Found to be hypotensive and put on Benito-Synephrine drip. Got transferred here from [place]. She is anemic and concern about GI bleeding and added a Protonix drip. She was put over here. Abdominal CT was ordered. She had 4+ bacteria in the urine but was reportedly asymptomatic. She got a dose of Levaquin before she came here. To review again, her past medical history: 1. Hypothyroidism. 2. Diabetes mellitus type 1. 3. Osteoarthritis. 4. History of cervical cancer. 5. Chronic kidney disease stage 3. 6. Iron deficiency anemia. 7. Peptic ulcer disease with no bleeding. 8. Peripheral neuropathy. 9. Hypertension. 10. Vitamin D deficiency. 11. She has had bilateral tubal ligation. 12. section. 13. 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 She had a non anion acid iron gap consistent with renal failure and normocytic anemia. She was put on vancomycin and Rocephin. She had carotid Dopplers done but the CT of the abdomen and pelvis on 10/15/2016, some anasarca, bilateral pleural effusion, generalized mesenteric edema and small amount of abdominal and pelvic ascites. Somewhat distended stomach with debris. No evidence of bowel obstruction. Minimal diverticulosis sigmoid colon, 1 cm stone on left renal pelvis with no hydronephrosis. She had carotid Dopplers done on 10/16 and there was no significant disease. Chest x-ray done yesterday, pulmonary edema or pleural effusion. She seemed to be improving as far as waking up and feeling a little stronger. In fact, she was complaining of pain in her back. Her lab work: White count stays around 4000. Hematocrit and hemoglobin were stable. She was given some blood, I think 2 units of blood, predominantly neutrophils. Chemistries: Creatinine was 2.6, sodium 139, potassium 3.4, chloride 115. Anion gap was at 15, bicarb was 9 consistent with metabolic acidosis. ABGs we will repeat here in a bit. She presented and she appeared to be in metabolic acidosis. ASSESSMENT AND PLAN: 1. She had an EGD, found to have erosive esophagitis, hiatal hernia sliding type gastritis and some duodenal ulcers. She shows no sign of active bleeding at this point. 2. Renal insufficiency. Serum creatinine 2.6, apparently a history of chronic kidney disease. 3. She has hypotension with poor urine output. Suspect we are going to have a decline in her renal function. 4. Hypoxia, agonal respirations, trouble breathing. I do not know if we are developing acute respiratory distress syndrome but she has gone into respiratory failure. We are going to intubate. I had no choice but to give her aggressive fluids. Looking back at her records I do not see a cardiac echo but I think we are going to need to get one. Her EKG showed supraventricular tachycardia. She has poor R-wave progression in anterior septal leads. 5. Enzymes. Cardiac enzymes we will check. Thyroid, interesting her TSH was 13.08. T4 was 0.97. B12 was 1680. I am going to expand her antibiotic coverage, add Zosyn to the regimen and we are going to turn up the fluids, use pressors if necessary. We need to treat her as sepsis. I do not know the source. She had a renal CT done back in December and a renal ultrasound done back in November 2013. At that time there was no obstruction. She did have bilateral renal stones back then. No sign of obstruction. cc: Henrry Bunch MD
--- NOTE | 2016-10-20 17:03 | Diag Imaging Result Document ---
PROCEDURE NAME: CHEST-1 VIEW - 10/20/2016 SEMIUPRIGHT PORTABLE CHEST: FINDINGS: Compared to 10/19/2016. Poor inspiratory effort. There are at least moderate size bilateral pleural effusions. There is mild basilar atelectasis and there may be underlying pneumonia as well. Overall the findings are more pronounced than on the prior exam. IMPRESSION: Overall interval worsening in the pleural effusions, pulmonary edema, and basilar atelectasis.
--- NOTE | 2016-10-20 17:04 | Diag Imaging Result Document ---
PROCEDURE NAME: LUMBAR SPINE 1 VIEW - 10/20/2016 LUMBAR SPINE, CROSS-TABLE LATERAL: FINDINGS: Almost no information is obtained due to the quality of the exam secondary to the patient's body habitus.
[2016-10-20] MEDS ORDERED: SODIUM BICARBONATE 8.4% IV PUSH ONE (17:10)
[2016-10-20] MEDS: M.V.I.-12 10 ML, FOLIC ACID 1 MG, MAGNESIUM SULFATE 1 GM, THIAMINE 100 MG in NS 1,000 ML IV SCH (18:09)
[2016-10-20] MEDS: ZOSYN 3.375 GM/NS 3.375 GM/50 ML IVPB IV SCH ×2 (18:10→21:38)
[2016-10-20] MEDS: DIPRIVAN 1% 1,000 MG/100 ML BOTTLE IV SCH ×2 (18:12→21:37)
[2016-10-20] MEDS: NS 1,000 ML IV SCH (19:31)
--- NOTE | 2016-10-20 23:04 | Diag Imaging Result Document ---
PROCEDURE NAME: ABDOMEN/PELVIS W/O CONTRAST - 10/20/2016 CT ABDOMEN AND PELVIS WITHOUT CONTRAST: FINDINGS: No contrast administered per request of the referring provider. A dose reduction protocol was used. Compared to 10/15/2016. There are bilateral pleural effusions which have increased. There is associated compressive atelectasis of the bilateral lung bases. There is generalized subcutaneous edema which has increased. There is generalized mesenteric edema again seen. There is a medium amount of ascites which is increased. The above findings are compatible with worsened anasarca. There is some mild small bowel and colon wall edema which likely relates to the generalized mesenteric edema/ascites. There is no diverticulitis identified. There is no abscess identified. There is no free air. There is retained fecal debris in the left colon and rectum suggesting constipation. There is no evidence of bowel obstruction. There are no acute changes identified in the liver, spleen, adrenal glands, or pancreas. There are tiny calcified gallstones or dense sludge in the dependent portion of gallbladder. There is a 1 cm stone again seen in the left renal pelvis. There is no substantial hydronephrosis. There has been interval placement of a nasogastric tube with its tip at the mid stomach. There has been interval resolution of the gastric distention seen on the previous exam. IMPRESSION: 1. Severe and worsen anasarca with increased bilateral pleural effusions, increased subcutaneous edema, generalized mesenteric edema, and increased ascites. 2. No discrete focal inflammation identified in the abdomen or pelvis. No abscess. No free air. 3. No bowel obstruction. Apparent constipation. 4. Tiny gallstones or dense sludge in the dependent portion of gallbladder. 5. A 1 cm stone in left renal pelvis. [facility]phrosis. [facility]
[2016-10-21] MEDS: DIPRIVAN 1% 1,000 MG/100 ML BOTTLE IV SCH ×5 (00:20→14:52)
[2016-10-21] MEDS: NS 1,000 ML IV SCH ×3 (01:16→14:52)
[2016-10-21] MEDS: ROCEPHIN 1 GM/NS 1 GM/50 ML IVPB IV SCH (01:17)
[2016-10-21] MEDS: CARAFATE LIQUID PO SCH ×4 (01:17→20:17)
[2016-10-21] MEDS ORDERED: VANCOMYCIN 750 MG in NS 250 ML IV SCH (03:00)
[2016-10-21] MEDS: DUONEB (A & A) INH SCH ×6 (03:33→22:37)
[2016-10-21] MEDS: ULTRACET 37.5MG/325MG PO SCH ×3 (04:41→20:17)
[2016-10-21] MEDS: ZOSYN 3.375 GM/NS 3.375 GM/50 ML IVPB IV SCH ×4 (04:41→20:19)
[2016-10-21 05:15] LABS: ALLEN TEST YES; BLOOD TYPE ARTERIAL; DRAW SITE R RADIAL; O2(CT) 13.8 mL/dL (15.0-23.0); PO2(98.6) 53 mmHg (60-100); SAMPLE BLOOD; SAO2 91.1 % (95.0-100.0); SRATE 28 BPM; THB 10.8 g/dL (11.5-17.4); TVOL 500 mL; pH(98.6) 7.25 (7.35-7.45)
[2016-10-21 05:16] LABS: PCO2(98.6) 19 mmHg (35-45)
[2016-10-21 05:17] LABS: MODALITY VENTILATOR
[2016-10-21] MEDS: NEO-SYNEPHRINE 50 MG in NS 250 ML IV SCH ×3 (06:19→14:53)
[2016-10-21] MEDS: HUMALOG SUBQ SCH ×4 (06:20→21:21)
[2016-10-21] MEDS: SYNTHROID PO SCH (06:20)
[2016-10-21 06:27] LABS: HEMATOCRIT 37.4 % (37.0-47.0); HEMOGLOBIN 11.9 g/dL (12.0-16.0); IMM GRAN# 0.03 X1000 (0.0-0.04); IMM GRAN% 0.2 % (0.0-0.5); LYMPH# 4.59 X1000 (1.2-3.4); LYMPH% 32.6 % (20.5-51.1); MANUAL DIFF NEEDED? YES; MCH 30.1 PG (27-31); MCHC 31.8 g/dL (33-37); MCV 94.4 FL (81-99); MONO# 0.23 X1000 (0.11-0.59); MONO% 1.6 % (1.7-9.3); MPV 12.8 FL (7.4-10.4); NEUT% 65.6 % (42.2-75.2); PLT 140 X1000 (130-400); RBC 3.96 XMIL (4.2-5.4)
[2016-10-21 06:37] LABS: LYMPHS 24 % (21-51)
[2016-10-21 06:50] LABS: AGAP 15; ALBUMIN 3.2 g/dL (3.5-5.0); ALKALINE PHOSPHATASE 62 U/L (32-104); BUN 33 mg/dL (8-22); CALCIUM 7.7 mg/dL (8.8-10.2); CHLORIDE 108 mmol/L (98-107); COSMO 298; GOT 35 U/L (10-30); GPT 25 U/L (10-36); POTASSIUM 3.9 mmol/L (3.5-5.1); SODIUM 145 mmol/L (136-145); TCO2 22 mmol/L (25-35); TOTAL BILIRUBIN 0.42 mg/dL (0.20-1.00); TOTAL PROTEIN 5.9 g/dL (6.3-8.3)
[2016-10-21] MEDS: PROTONIX IV SCH ×2 (08:20→20:17)
[2016-10-21] MEDS: SODIUM CHLORIDE 0.9% INJ SCH (08:20)
[2016-10-21] MEDS: ICAR-C PO SCH ×2 (08:21→20:17)
[2016-10-21] MEDS: CENTRUM SILVER PO SCH ×2 (08:21→20:17)
[2016-10-21] MEDS: M.V.I.-12 10 ML, FOLIC ACID 1 MG, MAGNESIUM SULFATE 1 GM, THIAMINE 100 MG in NS 1,000 ML IV SCH (08:22)
--- NOTE | 2016-10-21 08:54 | PROGRESS NOTE ---
DATE: 10/20/2016 GASTROENTEROLOGY FOLLOWUP: REQUESTING PHYSICIAN: Dr. Henrry Bunch. PRIMARY CARE DOCTOR: Dr. Lee Sung. SUBJECTIVE: Patient currently resting in bed. She complains of pain in her back and requesting pain medication. This morning she was found to be hypothermic and she was put on a heating blanket. She continues to be hypotensive requiring pressor support and this is of unclear etiology. The primary care team is following her closely. She denies any vomiting, nausea, or vomiting blood. She had 1 bowel movement which was brown in color per the nursing staff. OBJECTIVE: Vitals: Temperature of 88 rectally, pulse rate of 91, respiratory rate 20, blood pressure of 60/38, saturating 90% on room air. General Appearance: Thinly built, lying in bed, and slightly confused and complaining of pain in the back. HEENT: Pale conjunctivae. No icterus. Neck: Supple. Abdomen: Soft, nondistended. Bowel sounds are present. No guarding. No rebound. Extremities: No cyanosis, clubbing. Neurologic: She is mildly confused. LABS: Hemoglobin and hematocrit is 10.7 and 32.4, white count of 4.8, platelet count of 59,000, MCV of 91.3, INR 1. Sodium of 139, potassium 3.5, chloride 113, bicarb of 9. Anion gap of 15, BUN of 25, creatinine of 2.6. Glucose of 85, calcium is 7.6, magnesium 1.8. Total bilirubin is 0.13, AST 14, ALT 13, alkaline phosphatase is 50, total protein 4.5, albumin of 2.2. Plasma lactate of 0.7. B12 1580. Folate of 11.7, TSH 13.08. Urinalysis cloudy trace protein, 10-20 white cells. Stool occult blood was positive. C. difficile toxin was negative. IMPRESSION AND PLAN: 1. Hypothermia, hypotension. I suspect cortisol deficiency versus sepsis. I discussed that with an RN who is calling Dr. Bunch for further orders regarding further workup. 2. Non-anion gap metabolic acidosis and elevated BUN and creatinine could be secondary to sepsis or may be renal insufficiency. We will call Nephrology consult. 3. Pancytopenia. Will call Hematology consult. 4. Anemia. Continue to watch. No evidence of any overt GI bleeding. She will continue on PPIs and Carafate for now for evidence of erosive esophagitis, gastritis and duodenitis and duodenal ulcers on recent EGD on 10/18/2016. 5. Malnutrition. Will continue to encourage oral intake. Will continue on Boost 1 can p.o. t.i.d., and once she is more awake we can advance her diet. 6. Blood cultures were drawn today and the current results are currently pending. The last blood cultures were done 5 days ago which were negative x2. Urine culture has shown Streptococcus agalactiae and she is on antibiotics with Rocephin. 7. The above plan of care discussed with the patient and nurse at bedside, and all questions were answered. cc: Arpit Bustamante MD
[2016-10-21 09:03] LABS: ALBUMIN 2.1 g/dL (3.5-5.0); CALCIUM 7.5 mg/dL (8.8-10.2); POTASSIUM 3.6 mmol/L (3.5-5.1)
--- NOTE | 2016-10-21 09:04 | Diag Imaging Result Document ---
PROCEDURE NAME: CHEST-PORTABLE - 10/21/2016 PORTABLE CHEST: Compared with 10/20/2016. FINDINGS: Endotracheal tube and nasogastric tube remain in place. There are relatively diffuse bilateral infiltrates and bilateral pleural effusions similar to the previous exam. These findings are suspicious for pulmonary edema, although underlying pneumonia is not excluded. There is no pleural effusion seen. IMPRESSION: Pulmonary edema similar to the previous exam.
--- NOTE | 2016-10-21 09:15 | PROGRESS NOTE ---
DATE: 10/21/2016 SUBJECTIVE: Ms. Mi is intubated yesterday evening. She was comfortable. She has an NG tube in place. PHYSICAL EXAMINATION: Vital Signs: Temperature 98.7, pulse 82, respirations 28. Blood pressure has been 95/50. Lungs: Are clear anterolateral. Cardiovascular Examination: Regular rhythm and rate without murmur or S3. Is and Os: Urine output was 700 mL. DIAGNOSTIC DATA: White count 14,060, hematocrit 37, platelet count 140,000. Chemistry: Sodium 145, potassium 3.9, chloride 108, bicarbonate 22, BUN 33, creatinine 0.8, blood sugar 118, 132, 138. Calcium 7.7 and albumin is 3.2. Abdominal and pelvic CT done last night, severe worsening anasarca, increased bilateral pleural effusions, increased subcutaneous edema, generalized mesenteric edema, increased ascites. No discrete focal inflammation identified in the abdomen or pelvis. No abscess. No bowel obstruction. Tiny gallstone and dense sludge, dependent portion of the gallbladder, 1 cm stone in the renal pelvis but no hydronephrosis. ASSESSMENT AND PLAN: 1. Respiratory failure and appearance of sepsis. Do not know the etiology. Continue broad- spectrum antibiotics. I had to intubate. Gas exchange is better. Urine output is improved. Blood pressure seems to be improving. 2. Renal insufficiency. Serum creatinine 2.8. Continue present fluids. We will need to address nutrition, probably start on nasogastric feeding. We did get a lumbar spine x-ray yesterday because of complaints of back pain. Almost no information obtained due to the quality of the examination secondary to the patient's body habitus. The CT scan did not suggest anything in the retroperitoneal area. Continue present medications. He is on vancomycin. We will give her some sodium bicarbonate for her acidosis. She has metabolic acidosis. Pulmonary is following. We will continue present orders. cc: Henrry Bunch MD
[2016-10-21] MEDS ORDERED: CLINIMIX E 4.25%-5% SOLUTION 1,000 ML IV SCH (14:37)
[2016-10-21] MEDS ORDERED: ALBUMIN 25% IV ONE (14:39)
--- NOTE | 2016-10-21 14:54 | Diag Imaging Result Document ---
PROCEDURE NAME: CHEST-PORTABLE - 10/21/2016 PORTABLE CHEST 1430 HOURS: Compared with an earlier exam of the same day. There has been interval insertion of a left subclavian central venous catheter with its tip at the expected location of the distal superior vena cava near the cavoatrial junction. There is no pneumothorax identified. Endotracheal tube and nasogastric tube remain in place. There are findings of pulmonary edema similar to the previous exam. IMPRESSION: 1. Tip of central venous catheter at distal superior vena cava near the cavoatrial junction. No evidence of pneumothorax. 2. Findings of pulmonary edema similar to the previous exam. Verbal results provided to Dr. Flores at 2:42 p.m. on 10/21/2016.
[2016-10-21] MEDS ORDERED: ALBUMIN 25% 50 GM in NS 800 ML IV ONE (15:00)
[2016-10-21] MEDS ORDERED: NS 1,000 ML IV SCH (15:11)
--- NOTE | 2016-10-21 17:25 | PROGRESS NOTE ---
DATE: 10/21/2016 SUBJECTIVE: Patient is currently in bed #12 in ICU. Yesterday her respiratory status worsened and she was intubated. She had a repeat CT scan of the abdomen and pelvis yesterday which showed severe and worsening anasarca with increased bilateral pleural effusions, increased subcutaneous edema, generalized mesenteric edema and increased ascites. No focal discrete inflammation noted in the abdomen or pelvis. No abscess. No free air noted. No bowel obstruction and there was evidence of constipation noted. Tiny gallstone or dense sludge in the dependent portion of gallbladder was noted, and a 1 cm stone in the left renal pelvis was noted with no hydronephrosis. She also had x-ray of the chest done which showed pulmonary edema similar to previous exam. The patient shows no evidence of any active bleeding from rectum and no history of vomiting blood. She did have a low-grade fever today. Prior to that, she was hypothermic. OBJECTIVE: Vital signs: Temperature 99.9, pulse rate of 81, respiratory rate 12, blood pressure 104/51, saturating 90% on mechanical ventilator. 100% FiO2. General appearance: Thinly built, lying in bed, intubated, vented and sedated. HEENT: Mild pallor. No icterus. Neck: Supple. Chest: Decreased. Cardiac: Tachycardic at times. Abdomen: Mild protuberant abdomen. Body wall edema noted. Anasarca noted. Bowel sounds are present. No guarding. Positive ascites. Extremities: No cyanosis, clubbing. Neurologic: She is sedated. LABORATORY: Hemoglobin and hematocrit 11.9 and 37.4, white count of 14.06, platelet count of 140,000, MCV of 94.4. INR 1, sodium 143, potassium 3.6, chloride 118, bicarb 7 , anion gap of 18, BUN of 27, creatinine of 2.7, glucose of 126, calcium is 7.5, phosphorus 3.1, albumin is 2.1. AST was 35, ALT 25, alkaline phosphatase 62, total protein 5.9, albumin of 2.1, lactate of 1.2. IMPRESSION AND PLAN: 1. Respiratory failure and sepsis of unclear etiology. We will consult Infectious Disease. 2. Severe metabolic acidosis. Pateient was started on bicarb drip. Normal lactate. 3. Anemia which is improving, and I think it is likely secondary to dehydration state secondary to sepsis. 4. Worsening Renal insufficiency. Continuing IV fluids. 5. Anasarca. Unclear. Could be nutritional or chronic malnutrition state. She may need total parenteral nutrition. Once she could been be stabilized, it will be appropriate to start her on total parenteral nutrition or nasogastric tube feeding. We will leave at the discretion of the primary care team. 6. Thrombocytopenia is improved. 7.GERD, duodenitis, Gastritis and duodenal ulcers: Continue PPIs for now. The above plan of care was discussed with the patient's nurse. Please call us with any questions. We will available as needed. cc: MD Henrry De Anda MD Reginald D. Gladish, MD Sammy Becdach, MD Unknown Attending, MD KING
--- NOTE | 2016-10-21 17:27 | OPERATIVE NOTE ---
PROCEDURE DATE: 10/21/2016 PROCEDURE: Left subclavian triple-lumen catheter. INDICATIONS: Venous access with septic shock. DESCRIPTION OF PROCEDURE: Patient was placed supine in the left subclavian. The area was prepped with ChloraPrep and anesthetized with lidocaine. Then the 14-gauge introducer needle was used to puncture the left subclavian vein. A guidewire was inserted, over which a dilator was passed and triple-lumen catheter was inserted to 20 cm, sutured in position with two 2-0 silk sutures.
--- NOTE | 2016-10-21 17:29 | CONSULTATION ---
DATE OF CONSULTATION: 10/21/2016 REQUESTING PHYSICIAN: Dr. Henrry Bunch. Thank you very much for asking me to see this very unfortunate 61-year-old female, white. DIAGNOSES: 1. Septic shock. 2. Metabolic acidosis secondary to above. 3. Acute respiratory failure secondary to pulmonary edema aspiration. 4. Hypothyroidism. 5. History of cervical cancer. 6. History of chronic obstructive pulmonary disease. 7. Anasarca likely secondary to nutrition. 8. Acute renal failure. RECOMMENDATIONS: Broad-spectrum antibiotics have been delivered. Will placed a right subclavian triple-lumen catheter for volume resuscitation. Will mechanically ventilate and monitor her gas exchange work of breathing. Once we get reasonable pressure requirements reduced I will try to wean the volume as well as the propofol. Will follow closely along with you. HISTORY: This is a fairly nebulous history on this 61-year-old female white. Apparently she had a admission on the with the onset of some shortness of breath and hypoxemia and hypoglycemia. She subsequently ended up having an EGD demonstrating some ulcer disease. She also had developed the onset of respiratory distress, presented to the ICU with a 6.[address] the abdomen shows diffuse edema as well as ascites and subsequently I am consulted to assist in her care. PAST MEDICAL HISTORY: Is significant for bilateral tubal ligation, diabetic ulcers, diabetes mellitus type 1, hypothyroidism, cervical cancer, chronic renal insufficiency as well as peripheral neuropathy. SOCIALLY: She lives at home with her . Is a former drinker. She does smoke approximately 20 pack year history. FAMILY HISTORY: Positive for pancreatic cancer as well as suicide. REVIEW OF SYSTEMS: Is otherwise negative except for the features mentioned above. PHYSICAL EXAM: Vital signs: Shows a blood pressure of 104/51 with a pulse of 88, respirations 28, temperature 99.0 degrees. HEENT: Exam reveals no thyromegaly or adenopathy. Pupils are equal and reactive. Extraocular muscles are intact. Neck: Supple. No bruits. No thyromegaly. No JVD. Chest: Reveals bilateral equal breath sounds with crackles and rhonchi. There are mechanically generated. Cardiac Exam: Reveals a regular rhythm without an appreciable murmur. Abdomen: Soft, nondistended, positive bowel sounds. Positive fluid wave. Cardiac exam: Reveals a regular rhythm. Extremities: Reveal ecchymoses and edema. Neurologically: She is sedated and reportedly has moved all 4. LABORATORY ASSESSMENT: Shows a white count of 14,060 with a hemoglobin 11.3, hematocrit 37.7, platelets 140,000. Sodium is 143, potassium 3.6, chloride 111, CO2 7, BUN 27, creatinine 2.7, glucose 126. The chest radiograph shows an ET tube in position, bilateral pleural infusions.
[2016-10-21] MEDS: THIAMINE 100 MG in NS 50 ML IV SCH (20:00)
[2016-10-22] MEDS: NEO-SYNEPHRINE 100 MG in NS 250 ML IV SCH ×5 (00:55→21:13)
[2016-10-22] MEDS: CARAFATE LIQUID PO SCH (02:23)
[2016-10-22] MEDS: DIPRIVAN 1% 1,000 MG/100 ML BOTTLE IV SCH (02:24)
[2016-10-22] MEDS: ROCEPHIN 1 GM/NS 1 GM/50 ML IVPB IV SCH (02:25)
[2016-10-22] MEDS: DUONEB (A & A) INH SCH ×6 (03:50→22:49)
[2016-10-22] MEDS: ZOSYN 3.375 GM/NS 3.375 GM/50 ML IVPB IV SCH (04:00)
[2016-10-22 04:22] LABS: ALLEN TEST YES; BE -22.4 mmoll (-3.0-3.0); BLOOD TYPE ARTERIAL; DRAW SITE R RADIAL; O2(CT) 12.3 mL/dL (15.0-23.0); PCO2(98.6) 27 mmHg (35-45); PO2(98.6) 64 mmHg (60-100); SAMPLE BLOOD; SAO2 92.8 % (95.0-100.0); SRATE 28 BPM; THB 9.4 g/dL (11.5-17.4); TVOL 500 mL
[2016-10-22 04:24] LABS: MODALITY VENTILATOR; pH(98.6) 7.02 (7.35-7.45)
[2016-10-22 05:01] LABS: BASO% 0.2 % (0.0-0.8); EOS# 0.12 X1000 (0.0-0.7); EOS% 2.6 % (0.0-10.0); HEMATOCRIT 28.4 % (37.0-47.0); HEMOGLOBIN 9.5 g/dL (12.0-16.0); IMM GRAN# 0.22 X1000 (0.0-0.04); IMM GRAN% 4.8 % (0.0-0.5); LYMPH# 0.19 X1000 (1.2-3.4); LYMPH% 4.2 % (20.5-51.1); MANUAL DIFF NEEDED? YES; MCH 30.2 PG (27-31); MCHC 33.5 g/dL (33-37); MCV 90.2 FL (81-99); MONO# 0.12 X1000 (0.11-0.59); MONO% 2.6 % (1.7-9.3); NEUT% 85.6 % (42.2-75.2); PLT 58 X1000 (130-400); RBC 3.15 XMIL (4.2-5.4)
[2016-10-22] MEDS ORDERED: SODIUM BICARBONATE 8.4% IV PUSH ONE ×2 (05:12→20:55)
[2016-10-22 05:17] LABS: BANDS 22 % (0-1); EOS 2 % (1-10); LYMPHS 4 % (21-51); MONO 2 % (1-9)
[2016-10-22] MEDS: SYNTHROID IV SCH (06:06)
--- NOTE | 2016-10-22 06:22 | Diag Imaging Result Document ---
PROCEDURE NAME: CHEST-PORTABLE - 10/22/2016 PORTABLE CHEST: COMPARISON: Compared to 10/21/2016. FINDINGS: Endotracheal tube is in good position. No change in the nasogastric tube or left subclavian line. There are dense bilateral infiltrates. Considering the difference in technique, there does not appear to be a significantly change since the prior study. There are small pleural effusions. IMPRESSION: No interval improvement.
--- NOTE | 2016-10-22 07:13 | EKG Report ---
Test Performed on : 10/22/2016 06:35:12 AM Test Reason : hypotension Blood Pressure : / mmHG Vent. Rate : 125 BPM Atrial Rate : 125 BPM P-R Int : 304 ms QRS Dur : 052 ms QT Int : 274 ms P-R-T Axes : 000 080 188 degrees QTc Int : 395 ms Sinus tachycardia. with 1st degree AV block. Low voltage QRS Septal infarct (cited on or before 01-NOV-2009) Abnormal ECG When compared with ECG of 16-OCT-2016 13:33, [place] interval has increased Questionable change in initial forces of Anterior leads Confirmed by Ekle HOLLAND, Dalton Goldstein ([id number]) on 10/22/2016 9:07:36 AM
[2016-10-22] MEDS: HUMALOG SUBQ SCH ×4 (07:30→22:00)
[2016-10-22 08:00] LABS: ALBUMIN 2.2 g/dL (3.5-5.0); CALCIUM 7.5 mg/dL (8.8-10.2); POTASSIUM 2.9 mmol/L (3.5-5.1); TOTAL BILIRUBIN 0.25 mg/dL (0.20-1.00); TOTAL PROTEIN 4.1 g/dL (6.3-8.3)
--- NOTE | 2016-10-22 08:15 | Diag Imaging Result Document ---
PROCEDURE NAME: ABDOMEN FLAT/UPRIGHT - 10/22/2016 FLAT AND UPRIGHT ABDOMEN, TWO VIEWS: FINDINGS: A nasogastric tube overlies the upper abdomen. There is very little air within the bowel loops. No organomegaly. No abnormal abdominal or pelvic calcifications. IMPRESSION: Negative exam.
[2016-10-22] MEDS ORDERED: LEVAQUIN 750 MG in NS 150 ML IV SCH (08:45)
[2016-10-22] MEDS ORDERED: SODIUM CHLORIDE 0.9% MISC PRN (10:26)
[2016-10-22] MEDS: SODIUM CHLORIDE 0.9% INJ SCH (10:28)
[2016-10-22] MEDS: PROTONIX IV SCH ×2 (10:29→21:00)
[2016-10-22] MEDS: ATIVAN IV PRN (10:29)
--- NOTE | 2016-10-22 11:22 | CONSULTATION ---
DATE OF CONSULTATION: 10/22/2016 CONCLUSION: The patient is admitted to the hospital with sepsis and multiple organ system failure. She does have pneumonia. She also has a group B streptococcal urinary tract infection. Both of these infections could cause the patient to develop septic shock and renal failure. She does have some ascites and I think a spontaneous bacterial peritonitis could be a possibility. RECOMMENDATIONS: I agree with the decision to treat the patient with vancomycin and Zosyn. To this I have added Levaquin. DISCUSSION: The patient is unable to give a history. No family member was present. She presented to the emergency room with a low blood sugar and being found unresponsive and hypotensive at home. The patient's CBC for today shows a white count of 4,540, hemoglobin 9.5, and platelet count 58,000. Blood gases show a pH of 7.02, PO2 of 64, and a pCO2 of 27,. The creatinine is 2.8. The GFR is 17. The patient's liver function studies are normal. The urine grew a group B strep. Sputum has grown normal reuben and yeast. Blood cultures have been negative. The results of an echocardiogram are pending. Chest x-ray shows bilateral infiltrates. The flat plate of the abdomen showed no abnormalities. CT scan of the abdomen and pelvis showed anasarca and ascites. PAST MEDICAL HISTORY: Positive for hypothyroidism, diabetes mellitus, osteoporosis, cervical cancer, chronic kidney disease stage 3, iron deficiency anemia, peptic ulcer disease, peripheral polyneuropathy, hypertension, and vitamin D deficiency. PAST SURGICAL HISTORY: Positive for bilateral tubal ligation, a , and right 4th toe amputation secondary to a diabetic foot ulcer. SOCIAL HISTORY: Positive for cigarette smoking. The patient stopped drinking alcoholic beverages in 2006. She does not have a history of illicit drug use. She lives at home with her . FAMILY HISTORY: Positive for pancreatic cancer and suicide. REVIEW OF SYSTEMS: Was unable to be obtained. PHYSICAL EXAMINATION: Vital Signs: Temperature is 96.8 degrees, pulse 74, respirations 28, blood pressure 91/56. The patient's weight is listed as 96 pounds. General: This is an ill-appearing, middle-aged female. She is intubated and sedated. HEENT: There is an NG tube down as well. There is an orotracheal tube down also. Neck: No meningismus. Thorax: No increased AP diameter of the chest. Lungs: There were loud rhonchi on the left side. The right side had some rhonchi but not nearly as much on the left side. Cardiovascular: Heart rate is regular. There was generalized anasarca. Abdomen: Again, there was anasarca involving the abdominal wall. I could not really feel any masses. There was no response to palpation of the abdomen. Neurologic: The patient is obtunded. She made no spontaneous movements during the exam. There was no tremor. Integument: No rash noted. Thank you for the consult. cc: Vicente Navarrete MD
[2016-10-22] MEDS ORDERED: NS 2,000 ML ONE (11:26)
[2016-10-22] MEDS: ZOSYN 2.25 GM/NS 2.25 GM/50 ML IVPB IV SCH ×2 (11:34→21:00)
[2016-10-22] MEDS: SOLU-CORTEF IV SCH ×2 (11:34→17:55)
[2016-10-22] MEDS: LEVOPHED 8 MG in D5 1/2 NS 250 ML IV SCH ×2 (11:35→19:23)
--- NOTE | 2016-10-22 13:04 | CONSULTATION ---
DATE OF CONSULTATION: 10/22/2016 REASON FOR ADMISSION: Low blood sugar and unresponsiveness with hypotension. REASON FOR CONSULTATION: Acute kidney injury with fluid volume overload. CONSULTING PHYSICIAN: Dr. Bustamante. PRIMARY CARE PHYSICIAN: Dr. Sung. Breakfast Server is Dr. Simms. HISTORY OF PRESENT ILLNESS: Ms. Mi is a 61-year-old, white female who is known to our outpatient services for chronic kidney disease, stage 4. Patient's baseline creatinine normally runs between 3.0-3.5. Patient has been holding steady for the last year at her baseline. Subsequently, she is unable to give us any report of any concern secondary to intubation. Most information was obtained from the chart. She was presented to the emergency room after being found by her slumped over and unresponsive at home. Her glucose was found to be at 23. She has a medical history of chronic kidney disease stage 4. Diabetes mellitus , type 1, hypothyroidism, peptic ulcer disease and hypertension. Upon admission, it was found that she remained hypotensive. She was started on Benito-Synephrine. She was intubated. She was found to have 4+ bacteria in her urine, was asymptomatic. She was given a dose of Levaquin. Subsequently, she had positive guaiac stools and was requiring EGD and a colonoscopy per Dr. Bustamante. Due to poor respiratory status, patient was intubated and has been followed by Dr. Lee Flores over the weekend. She remains in the ICU. She is currently on a Diprivan drip with Clinimix and is now on fluid volume overload. PAST MEDICAL HISTORY: Chronic kidney disease stage 4. Hypothyroidism, diabetes mellitus type 1 since the age of 35. Osteoporosis. History of cervical cancer, iron deficiency anemia. History of peptic ulcer disease. No bleeding. History of peripheral polyneuropathy. Hypertension. Vitamin D deficiency. PAST SURGICAL HISTORY: Bilateral tubal ligation. section. Right 4th toe amputations secondary to diabetic foot. SOCIAL HISTORY: She is . States that she has had 5 cigarettes a day for the last 28 years. Stopped drinking alcohol in 2006. Denies any illicit drug use. FAMILY HISTORY: Mother had pancreatic cancer. Father from suicide. ALLERGIES: Listed as aspirin, iodine and shellfish derived. HOME MEDICATIONS: Levothyroxine, ergocalciferol, insulin, NPH. Patient is currently receiving DuoNeb. She is on Humalog. She has Clinimix infusing. She remains on vancomycin and Zosyn, which we will renally dose. She is on a Benito-Synephrine drip. She also is on Levaquin. REVIEW OF SYSTEMS: Times 10 with pertinent positives listed above in the HPI. VITAL SIGNS: Her most recent vital signs are temperature 97, blood pressure is 86/55, heart rate 80, respirations are 14. She is ventilator dependent. She is on 100% FiO2. She is saturating at 100%. She has had 4494 in, 193 out. Dark concentrated urine. LABS: This a.m., sodium 143, potassium 2.9, chloride 113, CO2 of 10. BUN 31, creatinine 2.8, glucose 143. Her anion gap is 20. Calcium is 7.5, albumin 2.2. Acetone level is negative. Plasma lactate is 2.7. She has a BNP greater than 35,000 with a positive troponin of 0.344. White count 4.54, hemoglobin 9.5, hematocrit 28.4 with a platelet count of 58,000. ABGs this a.m.; pH 7.02, CO2 of 27, pO2 of 64, bicarb 7.4. Her PTT is 68.2. Blood culture shows no growth after 48 hours. Sputum culture shows normal reuben and yeast. Abdominal x-ray this a.m. shows negative exam. Chest x-ray this a.m. shows no interval improvement with continued dense bilateral infiltrates and small pleural effusions. PHYSICAL EXAMINATION: General: This is a 61-year-old, white female. She is currently resting in bed. She is ventilator dependent. She is sedated. She is in no distress. HEENT: Normocephalic, atraumatic. She has facial swelling. Pupils are equal and reactive. Neck: Supple. Trachea midline. Positive JVD. Cardiovascular: She is regular rate and rhythm. She is sinus rhythm on the monitor with isolated ectopy. She has no appreciable murmur. Lungs: She does have some coarse breath sounds with crackles and rhonchi. She remains ventilator dependent. Equal excursion. Abdomen: Round, soft, nontender. Hypo bowel sounds noted. NG tube remains to low intermittent suction. Genitourinary: Barboza catheter is in place with minimal urine out. Extremities: Patient has large amount of swelling to both upper and lower extremities. She has facial swelling. Approximately 3+. Neurological: As mentioned above. ASSESSMENT AND PLAN: 1. Acute kidney injury on CKD stage 4. Patient actually is at her baseline. Her baseline appears to be around 2.5 to 3.5. Over the last year, it has been stable. She is at 2.8 today with a BUN of 31. She appears to be in fluid volume overload. Doctor has spoken to her who is in agreement for starting dialysis at this time to assist with her fluid volume and possibly extubation. We will place her on SLEDD today. We will place her on a 4 K bath. She is to have 140 sodium, 27 bicarbonate. We will have her dialyzed for 8 hours, 250 mL pull, with an attempt to move 4 L for ultrafiltration. We have requested surgery for an access line. 2. Acute respiratory failure. Patient remains ventilator dependent. We have pulmonology following. We will assist with fluid volume overload. 3. Hypotension. This may be possibly secondary to sepsis or gastrointestinal bleed or both. The patient is being followed by Dr. Bustamante. We will change her medications to renal dosing. 4. Electrolytes. Patient has mild hypokalemia with correction on dialysis. 5. Acid-base balance. Patient is severely metabolic acidosis with lactic acidosis with correction on dialysis. 6. Anemia. This remains low but stable. I would to thank you for allowing us to follow with this patient. Seen, data reviewed, discussed with Calvin Malik on 10/22/16. I agree with the above assessment and plan of care. rg Dictated by KALYN Tomlinson for Anil Bundy MD cc: KALYN Tomlinson MD [facility]
--- NOTE | 2016-10-22 16:11 | OPERATIVE NOTE ---
PROCEDURE DATE: 10/22/2016 PREOPERATIVE DIAGNOSES: 1. End-stage renal disease. 2. Respiratory failure. 3. Sepsis. POSTOPERATIVE DIAGNOSES: 1. End-stage renal disease. 2. Respiratory failure. 3. Sepsis. PROCEDURE PERFORMED: Ultrasound-guided right femoral vein Trialysis catheter placement. ESTIMATED BLOOD LOSS: 5 mL. SPECIMENS: None. ANESTHESIA: ICU sedation protocol. INDICATION: A 61-year-old, female who is critically ill in the ICU, had an increasing septic picture over the weekend requiring vasopressors. She has progressed to oliguria , significant volume overload, metabolic acidosis requiring dialysis. FINDING: Ultrasound examination of the right groin shows a small, but compressible common femoral vein with otherwise normal vascular anatomy is compressible with no evidence of intraluminal thrombus. OPERATIVE NOTE: Risks, benefits, alternatives discussed with her who consented to the procedure. Her right groin was prepped with chlorhexidine, draped in usual fashion. Focused ultrasound of the right groin was performed with above findings. Using a pink introducer needle, the femoral vein was accessed under direct visualization on the first pass. Dark nonpulsatile venous blood was noted. The wire threaded easily. We confirmed with ultrasound that the wire coursed directly in the vein and it did not traverse the artery . I made a skin tee, serially dilated the tract, pre flushed triple-lumen Vas-Cath was placed. Trialysis was advanced using Seldinger technique. The wire was removed. All ports withdrew blood and flushed easily. Sterile caps were applied and secured with 2-0 nylon suture and a sterile dressing was applied. There was no evidence complication, tolerated the procedure well. Okay to begin using the catheter. cc: Sumaya Becerril MD [facility]
--- NOTE | 2016-10-22 17:12 | Diag Imaging Result Document ---
PROCEDURE NAME: US RENAL 2 (RETROPER) COMPLETE - 10/22/2016 RENAL ULTRASOUND: COMPARISON: CT abdomen and pelvis, 10/20/2016. FINDINGS: Stable ascites. Stable left-sided renal stone measuring about 7 mm. No hydronephrosis or hydroureter. Kidneys are severely atrophic, stable from the prior exam. The right kidney measures 6.7 x 2.9 x 3.5 cm. The left kidney measures 6.1 x 3.2 x 3.6 cm. Cortex measures about 6 mm bilaterally. IMPRESSION: 1. Stable severe bilateral renal atrophy. 2. Stable ascites. 3. Stable left renal stone with no obstruction.
--- NOTE | 2016-10-22 18:29 | PROGRESS NOTE ---
DATE: 10/22/2016 SUBJECTIVE: Ms. Mi is responsive. She is sedated on the ventilator, endotracheal tube in place. NG tube in place, trying to begin dialysis. OBJECTIVE: Vital signs: Temperature 96.7, pulse was fluctuating between 70, 142, respiration 13, blood pressure 120/59. HEENT: Pupils are equal, round, react to light, accommodation. Oral, nasal mucosa unremarkable. Conjunctivae pink. Sclerae clear. Tympanic membranes intact. Respiratory: Lungs are clear anterolateral Cardiovascular: Regular rhythm, rate without murmur or S3. Abdomen: Soft. Skin: Is warm and dry. Urine output from yesterday almost 7 L, today about 8 L. LAB: From this morning white count 4540, hematocrit 28, platelet count is 58,000. Chemistries . ASSESSMENT AND PLAN: 1. Patient with sepsis, multiple organ system failure. She does have pneumonia, group B streptococcus urinary tract infection. Both of these infections could be responsible, she on the respiratory failure intubate, urine output has gone down appears to have gone into renal failure as well. Continue vancomycin, Zosyn and Levaquin has been added, Dr. Navarrete is following. 2. Acute kidney injury on chronic kidney disease stage 4, baseline appears her creatinine is 2.5- 3.5, over last year has been stable, she had a 2.8 with a BUN of 31 and appears to have some volume overload, had no choice but to give her volume due to her sepsis so going to start her on SLEDD therapy try and help with fluid overload, needs a 4 k bath and having trouble getting access ready. 3. Acid-base balance. Metabolic acidosis with lactic acidosis. Will correct with dialysis. 4. Hypotension secondary to sepsis, started hydrocortisone drip and resume. 5. Possible adrenal insufficiency. Her Clostridium difficile was negative. Cortisol level was 11.4 from this morning. Will continue the Solu-Cortef though. cc: Henrry Bunch MD
[2016-10-22] MEDS ORDERED: SODIUM BICARBONATE 8.4% ONE (19:21)
[2016-10-22] MEDS: THIAMINE 100 MG in NS 50 ML IV SCH (19:45)
[2016-10-22 19:54] LABS: ALLEN TEST YES; BE -24.2 mmoll (-3.0-3.0); BLOOD TYPE ARTERIAL; DRAW SITE R RADIAL; METHB 0.1 % (0.0-1.5); O2(CT) 14.8 mL/dL (15.0-23.0); PCO2(98.6) 42 mmHg (35-45); PO2(98.6) 61 mmHg (60-100); SAMPLE BLOOD; SAO2 86.9 % (95.0-100.0); SRATE 12 BPM; THB 12.1 g/dL (11.5-17.4); TVOL 500 mL
[2016-10-22 19:56] LABS: MODALITY VENTILATOR
[2016-10-22] MEDS ORDERED: POTASSIUM CHLORIDE 20 MEQ/SWI 20 MEQ/100 ML IVPB IV SCH (20:00)
[2016-10-22] MEDS: SODIUM BICARBONATE 8.4% 150 MEQ in STERILE WATER INJ. 1,000 ML IV SCH (20:00)
--- NOTE | 2016-10-22 20:23 | PROGRESS NOTE ---
DATE: 10/22/2016 ATTENDING PHYSICIAN: Dr. Bunch. SUBJECTIVE: Patient is intubated and vented. She was seen by ID team, by Dr. Navarrete for suggestion of possible pneumonia and UTI with group B strep and possibility of SBP contributing to her symptoms. She has been on broad-spectrum antibiotics. I discussed her care with Dr. Bunch and we will be ordering serum cortisol level and she will be getting stress dose steroids, hydrocortisone per the primary care team. The patient has been moving her bowels with laxatives and the nursing staff described the stool to slight darker in color with no zena blood. Her hemoglobin and hematocrit have dropped from 37 yesterday to 28.4 and her EGD in the past had shown evidence of superficial renal ulcers and duodenitis. OBJECTIVE: Vital signs: Temperature of 96.7 degrees, pulse rate of 83, respiratory rate 28, blood pressure 122/59, saturating 90% on mechanical ventilator, 100% FiO2. General appearance: Thinly built, lying in bed, intubated and vented and sedated. HEENT: Pupils are equal. Neck: Supple. Abdomen: Body wall edema noted. Positive anasarca. Mild distention noted. Infraumbilical midline scar noted. Bowel sounds present. Extremities: No cyanosis, clubbing. Neurologic: She is sedated and not able to answer any questions. LABS: Her hemoglobin and hematocrit are 9.5 and 28.4, white count of 4.5, platelet count of 58,000. Glucose of 158. Troponin of 0.344. Lactate of 2.7. Sodium 143, potassium 2.9, chloride 113, bicarb 10, anion gap 20, BUN of 31, creatinine 2.8, glucose of 143, calcium 7.5, total bilirubin is 0.25, AST 12, ALT 7, alkaline phosphatase of 36, total protein 4.1 , albumin of 2.2, globulin 1.9. Acetone level is negative. Blood culture has been negative x2 for the last 48 hours. Sputum culture preliminary showing sparse growth, normal reuben, positive yeast. Abdominal x-ray done on 10/22/2016 showed a negative exam. Very little air within the bowel loops. Chest x- ray done on 10/12/2016 showed no interval improvement and small pleural effusions noted. ET tube in good position. Dense bilateral infiltrates noted. IMPRESSION AND PLAN: 1. Sepsis with bilateral lung infiltrates, pneumonia, and urinary tract infection. Being treated by the primary team and infectious disease. She is on vancomycin, Zosyn, and Levaquin. 2. Severe metabolic acidosis. On bicarb drip. Normal lactate and negative acetone. 3. Hypotension and hypothermia. We are checking serum cortisol level and patient initiated on hydrocortisone 100 mg IV q.8. 4. Chronic malnutrition state. She may need TPN once her sepsis and respiratory status improves. We will leave it to the discretion of the primary team. 5. Thrombocytopenia. Discussed with Dr. Lyles who will see the patient today. 6. Anemia which has worsened since yesterday. In the light of a history of known gastritis, duodenitis, and duodenal ulcers, will continue PPIs twice daily for now and watch for now. 7. Further recommendations to follow pending the hospital course. I discussed the plan with the patient's nurse, and Dr. Lyles, and Dr. Bunch. cc: MD Henrry De Anda MD Reginald D. Gladish, MD Sammy Becdach, MD MTDD
[2016-10-22] MEDS ORDERED: NS 500 ML ONE (22:01)
--- NOTE | 2016-10-22 22:04 | ECHO REPORT ---
ORDER DATE: 10/22/2016 INTERPRETING PHYSICIAN: Dr. Vela REQUESTING PHYSICIAN: CLINICAL INDICATIONS: A 61-year-old female with CHF, diabetes, hypertension. M-MODE MEASUREMENTS: Right ventricle: 3.0 cm. Left ventricle end diastole: 4.8 cm. Left ventricle end systole: 2.4 cm. Posterior wall: 0.7 cm. Interventricular septum: 0.7 cm. Left atrium: 3.0 cm. Aortic root: 3.0 cm. SUMMARY OF 2-DIMENSIONAL IMAGING: The global left ventricular systolic function is decreased. Ejection fraction is probably in the order of 45-50%. There is significant impairment of the mid to distal lateral wall, intraventricular septum, anterior wall, and inferior wall. This to some extent suggests the possibility of stress related cardiomyopathy, although not severe. The impairment does not necessarily seem to follow a coronary artery disease type of pattern. All of the apical segments appear to be compromised, which would correspond to three separate coronary distributions. 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 There is a large left pleural effusion. No significant pericardial effusion appears to be present except for a small one adjacent to the right atrium. The inferior vena cava is not dilated. The tricuspid valve shows a moderate degree of regurgitation. Pulmonary pressure estimated at 49 mmHg. The aortic valve looks normal. Color flow mapping unremarkable. The mitral valve looks normal. Color flow mapping indicates a [id number] degree of regurgitation. Pulse wave Doppler of mitral inflow is normal. Tissue Doppler of septal and lateral mitral annulus averages 12 cm per second. There is no definite diastolic dysfunction. Pulmonary venous flow is normal. The pulmonic valve looks normal. Color flow mapping unremarkable. There is no evidence of masses nor thrombus. IMPRESSION: In summary, this study shows: 1. Abnormal study with decreased ejection fraction in the order of 45-50% with peculiar wall motion abnormality involving the mid to apical segments of all the ventricular felix, anterior, septal, lateral, inferior, suggesting a stress related cardiomyopathy or a variant of it. 2. Mild degree of mitral regurgitation. 3. Moderate degree of tricuspid regurgitation with pulmonary pressure of 49 mmHg. 4. Unremarkable aortic valve. No diastolic dysfunction. Clinical correlation recommended. A good sized left pleural effusion is present. cc: MD Sudha Solorio MD
[2016-10-22] MEDS ORDERED: ALBUMIN 25% IV ONE (22:12)
[2016-10-22] MEDS ORDERED: PITRESSIN 40 UNIT in NS 100 ML IV SCH (22:30)
[2016-10-22 23:33] LABS: ALBUMIN 3.3 g/dL (3.5-5.0); POTASSIUM 3.4 mmol/L (3.5-5.1); TOTAL BILIRUBIN 0.43 mg/dL (0.20-1.00); TOTAL PROTEIN 5.1 g/dL (6.3-8.3)
--- NOTE | 2016-10-22 23:59 | OPERATIVE NOTE ---
PROCEDURE DATE: 10/22/2016 PREOPERATIVE DIAGNOSES: 1. End-stage renal disease. 2. Sepsis. 3. Respiratory failure. 4. Diffuse anasarca. POSTOP DIAGNOSIS: 1. End-stage renal disease. 2. Sepsis. 3. Respiratory failure. 4. Diffuse anasarca. PROCEDURE PERFORMED: Placement of right femoral hemodialysis catheter. ANESTHESIA: ICU sedation protocol. INDICATIONS: This is a 61-year-old female who presented with a septic clinical picture respiratory failure, progressive renal failure, diffuse volume overload, need of dialysis. She had a right femoral Trialysis 15 cm catheter placed earlier and despite it being well- positioned with aspirating blood and flushing easily it would collapse the vein at the time of at maximum flows in dialysis. Previous ultrasound there was a small femoral vein noted. It is likely that the catheter is within the iliac vein which is collapsing. Longer line placement is indicated to facilitate dialysis. OPERATIVE NOTE: Risks, benefits, alternatives discussed with the . He consented procedure. Previously placed right femoral line was prepped with chlorhexidine solution thoroughly and draped in usual fashion. After a time-out was performed wire access was gained the previous line and it was removed with wire remaining in the vein. A pre flushed Smaller diameter but longer 20 cm catheter double lumen in its place using Seldinger technique removed the wire. All ports withdrew blood and flushed easily without resistance. We secured this with nylon stitch. Due to the diameter discrepancy there was some oozing around the catheter we placed a pursestring suture which controlled this. Applied a tight dressing. She tolerated procedure well. No identified complication. cc: Sumaya Becerril MD [facility]PITALStephie
[2016-10-23] MEDS: SOLU-CORTEF IV SCH ×3 (02:30→17:39)
[2016-10-23] MEDS: DUONEB (A & A) INH SCH ×2 (03:38→08:29)
[2016-10-23] MEDS: ZOSYN 2.25 GM/NS 2.25 GM/50 ML IVPB IV SCH ×3 (03:50→19:32)
[2016-10-23 04:44] LABS: ALLEN TEST YES; BE -16.5 mmoll (-3.0-3.0); BLOOD TYPE ARTERIAL; DRAW SITE R RADIAL; O2(CT) 9.2 mL/dL (15.0-23.0); PCO2(98.6) 30 mmHg (35-45); PO2(98.6) 86 mmHg (60-100); SAMPLE BLOOD; SAO2 96.4 % (95.0-100.0); SRATE 18 BPM; THB 6.7 g/dL (11.5-17.4); TVOL 500 mL
[2016-10-23 04:45] LABS: MODALITY VENTILATOR; pH(98.6) 7.16 (7.35-7.45)
[2016-10-23 05:35] LABS: BASO% 0.1 % (0.0-0.8); EOS# 0.06 X1000 (0.0-0.7); EOS% 0.4 % (0.0-10.0); HEMATOCRIT 23.7 % (37.0-47.0); IMM GRAN# 0.02 X1000 (0.0-0.04); IMM GRAN% 0.1 % (0.0-0.5); LYMPH# 0.11 X1000 (1.2-3.4); LYMPH% 0.8 % (20.5-51.1); MANUAL DIFF NEEDED? YES; MCH 29.6 PG (27-31); MCHC 33.8 g/dL (33-37); MCV 87.8 FL (81-99); MONO# 0.24 X1000 (0.11-0.59); MONO% 1.8 % (1.7-9.3); MPV 11.4 FL (7.4-10.4); NEUT% 96.8 % (42.2-75.2); PLT 46 X1000 (130-400)
[2016-10-23 05:49] LABS: CALCIUM 7.7 mg/dL (8.8-10.2); POTASSIUM 3.3 mmol/L (3.5-5.1)
[2016-10-23] MEDS: SODIUM BICARBONATE 8.4% 150 MEQ in STERILE WATER INJ. 1,000 ML IV SCH (05:56)
--- NOTE | 2016-10-23 05:57 | CONSULTATION ---
DATE OF CONSULTATION: 10/22/2016 ADDENDUM: ALLERGIES: The patient is allergic to aspirin, iodine, and shellfish. HOME MEDICATIONS: Include the following: Insulin, vitamin D, and Synthroid. cc: Vicente Navarrete MD
[2016-10-23 06:50] LABS: BANDS 27 % (0-1); LYMPHS 3 % (21-51); MONO 3 % (1-9)
[2016-10-23] MEDS: HUMALOG SUBQ SCH ×4 (07:23→21:27)
[2016-10-23] MEDS: SYNTHROID IV SCH (07:23)
[2016-10-23] MEDS: PROTONIX IV SCH ×2 (07:59→21:29)
[2016-10-23] MEDS: SODIUM CHLORIDE 0.9% INJ SCH ×2 (07:59→21:29)
--- NOTE | 2016-10-23 08:17 | Diag Imaging Result Document ---
PROCEDURE NAME: CHEST-1 VIEW - 10/23/2016 PORTABLE CHEST X-RAY: COMPARISON: 10/22/2016. FINDINGS: Stable support lines and tubes. Stable diffuse bilateral infiltrates. Stable pleural effusions. IMPRESSION: No change from prior.
[2016-10-23] MEDS ORDERED: NS 2,000 ML ONE (08:42)
[2016-10-23 10:01] LABS: HEPATITIS PROFILE ACUTE SEE COMMENTS
--- NOTE | 2016-10-23 12:30 | PROGRESS NOTE ---
DATE: 10/23/2016 SUBJECTIVE: Ms. Mi is in the ICU critically sick, currently on vent and having hemodialysis. Per the nursing staff, there have not been any acute changes this morning. However, last night she was hypotensive and vasopressin was added to the other 2 pressors that the patient was already on. OBJECTIVE: Vital Signs: Today blood pressure is 120/93, pulse of 90, respirations 18, temperature is 96.1 degrees. General exam: Ms. Mi is a 58-year-old female. She is in bed, tolerating the vent. HEENT: Mucosa is pale. Anicteric and acyanotic. Neck: Supple. Chest: Air entry is bilaterally reduced. There is diffuse bilateral rhonchi and coarse crepitations. There are also some transmitted sounds from the ventilator. Cardiovascular: Regular rate and rhythm. Abdomen: Soft, distended. Bowel sounds are hypoactive. Extremities: 3+ pedal edema. There is distal bilateral purplish discoloration of the toes, which is consistent with poor peripheral circulation and pulses are also palpable. ORACLE EBS DEVELOPER: The patient continues to be stuporous and only corneal reflexes are positive, however the pupils are sluggishly reactive. The patient is able to kind of move sluggishly to painful stimulation. Generally, the patient is morbidly edematous in all extremities, as well as abdominal wall. LABORATORY DATA: 1. WBC is 13.43, hemoglobin 8.0, platelet count is 46. 2. There are 27% of bands on the peripheral smear. 3. Chemistry: Sodium is 146, potassium is 3.3, chloride is 112, bicarbonate is 11 with a gap of 23. BUN 34, creatinine is 2.7, glucose is 163. MICROBIOLOGY: Blood cultures have all been negative. Urine culture was Streptococcus agalactiae group B, which was pansensitive. X-RAY DATA: A chest x-ray done this morning shows stable lines, stable diffuse bilateral infiltrates, stable pleural effusions. ASSESSMENT: 1. Acute hypoxemic respiratory failure, likely due to underlying pleural effusions/ atelectasis. Possibility of pneumonia cannot be excluded. 2. Acute respiratory distress syndrome. The patient will continue on ventilator support and being followed by pulmonary medicine. 3. Intractable septic shock. Patient is currently on 3 pressors. Blood pressure is a little bit better today. We are going to discontinue the vasopressin and continue to wean her off the pressors as long as the blood pressure continues to hold. The patient is showing remarkable evidence of peripheral showdown with purplish discoloration of the lower extremities. 4. Severe metabolic acidosis which has not been amenable to medical therapy. Patient is getting dialysis; hopefully that can also be addressed during the session. 5. Severe bandemia with thrombocytopenia. This is all consistent with septic picture. Patient is currently on levofloxacin, Zosyn and vancomycin. We plan to continue with the current antibiotics. 6. Acute on chronic, chronic kidney disease. The patient continues to be oliguric. She is getting hemodialysis. 7. Anasarca likely due to over hydration, as well as retention from renal failure. GENERAL PLAN: In general Ms. Mi is extremely sick. She continues to show persistent intractable septic shock with multiorgan failure. Carries a very high mortality prognosis. I am yet to see a family member; I am told that the is usually here, so we can discuss the care going forward. For now, I am going to continue with the ventilator support, antibiotics, dialysis and withhold any IV hydration since patient is severely volume overloaded. We will continue with the pressors and the steroids. Hopefully we might be able to assess patient readiness for tube feedings tomorrow. critical time spent 45 minutes. cc: Daniel Castro MD MTDD
[2016-10-23] MEDS ORDERED: VANCOMYCIN 750 MG in NS 250 ML IV SCH (14:00)
[2016-10-23] MEDS: LEVOPHED 8 MG in D5 1/2 NS 250 ML IV SCH (14:19)
--- NOTE | 2016-10-23 14:38 | PROGRESS NOTE ---
DATE: 10/23/2016 TIME SEEN: 0800 SUBJECTIVE: Ms Mi remains ventilator dependent. She is sedated. She remains critically ill. OBJECTIVE: Her most recent vital signs are temperature 97 degrees, blood pressure is 67 palpable per Doppler, she has heart rate of 123, she is breathing 18 with the vent. She remains on 100% FiO2. Last recorded saturation is 100%. She has had 3337 in. She has had 380 out with only 30 mL on hemodialysis yesterday before catheter malfunction. She is 14.5 L positive in 72-97 hrs. LABS: Sodium 146, potassium 3.3, chloride 112, CO2 11, BUN 34, creatinine 2.7, glucose 163, anion gap 23, calcium 7.7, albumin 3.3. White count 13.43, hemoglobin 8, hematocrit 23.7, with a platelet count of 46,000. Her random vancomycin level was 12.6. ABGs pH 7.16 , CO2 30, PO2 86, bicarb 12.1 with a lactate of 2.1. PHYSICAL EXAMINATION: General: This is a 61-year-old white female who appears older than her stated age. She remains critically ill. Skin: Warm and dry. HEENT: Normocephalic, atraumatic. Conjunctiva is pale. Neck: Supple. Trachea midline. Positive JVD with facial swelling. Cardiovascular: She is regular rate and rhythm. She remains tachycardic on the monitor. Lungs: Continues with bilateral rhonchi with coarse crepitations. She continues ventilator dependence with equal excursion. Abdomen: Large, round, soft, nontender, positive bowel sounds. Genitourinary: Barboza catheter is in place. Patient remains oliguric. Extremities: She continues with 3+ pedal edema with bilateral distal digits having a purplish discoloration. Integumentary: No rashes or lesions evident with some multi stages of scabs that are healing on her upper and lower extremities with continued full anasarca. Neurological: As mentioned above. ASSESSMENT AND PLAN: 1. Acute kidney injury on chronic kidney disease stage 4. Patient remains oliguric with fluid volume overload. We will plan for SLED today per hemodialysis catheter that has been exchanged per Dr. Becerril last night. We will place her on a 4 K bath. She is to dialyze for 8 hours. We will leave her on a 37 bicarbonate for [address] her down to 32 bicarbonate per her remaining dialysis. We will attempt to pull 4 L of ultrafiltration as tolerated while she is on pressor support next. 2. Electrolytes. Patient has hypokalemia again with correction on dialysis. 3. Acid-base balance. Again, we will change her sodium bicarbonate to 37 for the 1st 4 hours, 32 for the last 4 hours. She remains on a sodium bicarbonate drip which patient has not been responsive to. 4. Anemia. This remains low but stable with no need for intervention. 5. Acute sepsis syndrome. Patient remains in septic shock. She has [address] Low blood pressure continues palpable with Doppler. She also continues on renal dosed antibiotics with vancomycin, Zosyn and levofloxacin all renal dosed. 6. Fluid volume overload with anasarca. Again we will attempt to pull 4 L of ultrafiltration as tolerated with pressor support during this treatment. I would like to thank you for allowing us to follow with this patient. Seen, data reviewed, discussed with Calvin Malik on 10/23/16. I agree with the above assessment and plan of care. rg Dictated by KALYN Tomlinson for Anil Bundy MD cc: KALYN Tomlinson MD [facility]
[2016-10-23] MEDS: VANCOMYCIN 1 GM/NS 1 GM/250 ML IVPB IV SCH (17:15)
[2016-10-23] MEDS: THIAMINE 100 MG in NS 50 ML IV SCH (18:21)
[2016-10-23 18:54] LABS: URINE SOURCE CATH
[2016-10-23 19:00] LABS: BILIRUBIN URINE NEGATIVE (NEGATIVE); BLOOD URINE MODERATE (NEGATIVE); GLUCOSE URINE NEGATIVE (NEGATIVE); LEUKOCYTES URINE LARGE (NEGATIVE); NITRITE URINE NEGATIVE (NEGATIVE); PROTEIN URINE 100 mg/dL (NEGATIVE); SP GRAVITY URINE 1.008; TURBIDITY URINE TURBID (CLEAR); UROBILINOGEN URINE NORMAL (NORMAL)
[2016-10-23 19:09] LABS: UR CREAT RANDOM 9.1 mg/dL (11-20); UR EPITHELIAL CELLS >10 /HPF (<10); UR PROT RANDOM 180.2 mg/dL; URINE BACTERIA 1+ /HPF; URINE MICRO REVIEW NEEDED? YES; URINE RBC TNTC /HPF (<10); URINE WBC TNTC /HPF (<10)
[2016-10-23 19:10] LABS: COLOR STRAW
--- NOTE | 2016-10-23 20:14 | PROGRESS NOTE ---
DATE: 10/23/2016 PRESENT ILLNESS: The patient has bilateral pneumonia, a group B streptococcal urinary tract infection and multiple organ system failure. MEDICATIONS: This is day 1 of the patient receiving Levaquin, Zosyn and vancomycin. PHYSICAL EXAMINATION: Vital Signs: Temperature is 96.6 degrees, pulse 132, respirations 18, blood pressure 120/68. General: This is an ill-appearing, middle-aged female. She is intubated and sedated. Lungs: Bilateral rales. Cardiovascular: Regular heart rate. Abdomen: Soft and not tender. Neurologic: Patient is obtunded. There were no spontaneous movements. LABORATORY AND X-RAY: Chest x-ray shows bilateral infiltrates. CBC shows a white count 13,430, hemoglobin 8 and platelet count 46,000. Blood gases show a pH of 7.16, a PO2 of 86, and a pCO2 of 30. Creatinine is 2.7, GFR is 18. ASSESSMENT AND PLAN: 1. The patient has an overwhelming pulmonary process as well as a streptococcal urinary tract infection. For now I plan to continue with the patient's current antimicrobial therapy. 2. Comorbidities include diabetes mellitus, chronic kidney disease, iron deficiency. cc: Vicente Navarrete MD
[2016-10-24] MEDS: LEVOPHED 8 MG in D5 1/2 NS 250 ML IV SCH ×3 (01:19→20:45)
[2016-10-24] MEDS: SOLU-CORTEF IV SCH ×3 (01:23→18:32)
[2016-10-24 04:18] LABS: ALLEN TEST YES; BE -5.2 mmoll (-3.0-3.0); BLOOD TYPE ARTERIAL; DRAW SITE R RADIAL; O2(CT) 18.4 mL/dL (15.0-23.0); PCO2(98.6) 32 mmHg (35-45); PO2(98.6) 68 mmHg (60-100); SAMPLE BLOOD; SAO2 92.1 % (95.0-100.0); SRATE 18 BPM; THB 14.2 g/dL (11.5-17.4); TVOL 500 mL; pH(98.6) 7.38 (7.35-7.45)
[2016-10-24 04:19] LABS: MODALITY VENTILATOR
[2016-10-24] MEDS: ZOSYN 2.25 GM/NS 2.25 GM/50 ML IVPB IV SCH (04:29)
[2016-10-24 05:22] LABS: BASO% 0.2 % (0.0-0.8); EOS# 0.08 X1000 (0.0-0.7); EOS% 0.4 % (0.0-10.0); HEMATOCRIT 23.5 % (37.0-47.0); HEMOGLOBIN 8.2 g/dL (12.0-16.0); IMM GRAN# 0.48 X1000 (0.0-0.04); IMM GRAN% 2.3 % (0.0-0.5); LYMPH# 0.22 X1000 (1.2-3.4); LYMPH% 1.1 % (20.5-51.1); MANUAL DIFF NEEDED? YES; MCH 29.9 PG (27-31); MCHC 34.9 g/dL (33-37); MCV 85.8 FL (81-99); MONO# 0.18 X1000 (0.11-0.59); MONO% 0.9 % (1.7-9.3); MPV 11.9 FL (7.4-10.4); NEUT% 95.1 % (42.2-75.2); PLT 56 X1000 (130-400); RBC 2.74 XMIL (4.2-5.4)
[2016-10-24 06:16] LABS: CALCIUM 8.2 mg/dL (8.8-10.2); POTASSIUM 4.2 mmol/L (3.5-5.1)
[2016-10-24] MEDS: MERREM 500 MG in NS 50 ML IV SCH ×4 (06:19→20:30)
[2016-10-24] MEDS: HUMALOG SUBQ SCH ×4 (06:25→20:44)
[2016-10-24] MEDS: SYNTHROID IV SCH (06:30)
[2016-10-24] MEDS: SODIUM CHLORIDE 0.9% INJ PRN (06:30)
--- NOTE | 2016-10-24 07:44 | Diag Imaging Result Document ---
PROCEDURE NAME: CHEST-1 VIEW - 10/24/2016 SINGLE FRONTAL RADIOGRAPH OF THE CHEST: COMPARISON: 10/23/2016. FINDINGS: ET tube is in stable position. Left subclavian line is stable. NG tube projects below the diaphragm and is assumed to be in the stomach. Diffuse bilateral infiltrates persist. There appears to have been some improvement at the left mid lung zone. No new consolidations are appreciated. Cardiac silhouette is stable. IMPRESSION: Persistent diffuse bilateral consolidations but perhaps some improvement on the left.
[2016-10-24 07:58] LABS: BANDS 30 % (0-1); LYMPHS 4 % (21-51); METAMYELOCYTES 4 %; MONO 2 % (1-9); NRBC 1 % (0-0)
[2016-10-24 07:59] LABS: HYPOCHROM 1+
[2016-10-24] MEDS ORDERED: NS 2,000 ML ONE (08:05)
[2016-10-24] MEDS: SODIUM CHLORIDE 0.9% INJ SCH (09:47)
[2016-10-24] MEDS: PROTONIX IV SCH ×2 (09:47→20:37)
[2016-10-24] MEDS: LEVAQUIN 500 MG in NS 100 ML IV SCH ×2 (09:48→14:52)
--- NOTE | 2016-10-24 11:13 | PROGRESS NOTE ---
DATE: 10/24/2016 SUBJECTIVE: Today, Ms. Mi continues to be critical, intubated. OBJECTIVE: Vital Signs: Blood pressure is 119/79, pulse of 78, respirations are 18, temperature is 96 degrees. General Examination: Ms. Mi is a 61-year-old, female. She was in bed. She did not seem to be in any remarkable distress. She is synchronizing very well with the ventilator. HEENT: Mucosa is slightly pale. Anicteric and acyanotic. The patient is edematous all over. Chest: Air entry is bilaterally reduced. There are diffuse bilateral crepitations. Cardiovascular: Regular rate and rhythm. Abdomen: Soft. There is an old infraumbilical scar. Extremities: About 4+ pedal edema. ACQUISITIONS LIBRARIAN: Patient is nonresponsive. Only to painful stimulation, she will grimace and attempt to pull from painful stimulation. Pupils are round and sluggishly reactive. Patient has very adequate cough reflex. Laboratory Data: WBC went up to 20.81, hemoglobin is 8.2, platelet count is 56, 000. The patient has 30% of bands on the peripheral smear. Chemistry: Sodium is 142, potassium is 4.8, chloride is 105, bicarb is 19, creatinine is 1.5 after dialysis. Is and Os: Patient has 40 urine output but had dialysis yesterday with 4000 pulled off for a negative balance of 2840. Of note, patient has a positive balance of 23,927. The patient came in with a weight of 90 pounds. However, up to yesterday, her weight was 150. This morning, her weight is 134. A chest x-ray this morning continues to show persistent diffuse bilateral consolidation but perhaps some improvement on the left. ASSESSMENT: 1. Acute respiratory distress syndrome. 2. Acute hypoxemic respiratory failure, likely due to underlying pleural effusions, atelectasis, and pneumonia. 3. Septic shock. The patient is currently only on Levophed. The vasopressin and the phenylephrine have been discontinued. 4. Metabolic acidosis. This is getting improved with dialysis. 5. Severe bandemia with thrombocytopenia due to the sepsis. 6. Acute on chronic kidney disease. Patient is now needing dialysis. 7. Anasarca. Patient is getting ultrafiltration. 8. Nutritional needs. We are going to start the patient on Nepro and consult dietitian. 9. Adrenal insufficiency. Cortisol level was extremely low. Patient is getting stress doses of steroids. 10. Hypothyroidism. The patient is getting intravenous levothyroxine. PLAN: I also was able to meet the boyfriend this morning. We went over the critical nature of Ms. Mi. He seems to understand what is going on. We will continue updating him on her clinical progress. critical time spent 45 minutes cc: Daniel Castro MD MTDD
[2016-10-24] MEDS ORDERED: ALBUMIN 25% IV ONE (13:33)
--- NOTE | 2016-10-24 14:25 | PROGRESS NOTE ---
DATE: 10/24/2016 SUBJECTIVE: She remains sedated, on the ventilator. OBJECTIVE: Vital Signs: Blood pressure 94/62, heart rate 87, respirations 22, afebrile. Intake and output: Intake 1.2 L. Output 4.0 L. General: Mental status as above. Skin: Pale and dry. HEENT: Conjunctivae are pink. Neck: Neck veins are distended. Heart: Regular and tachycardic. Lungs: Have equal breath sounds with a few scattered crackles. Abdomen: Soft, nontender. Bowel sounds are present. Extremities: Have 2 to 3+ edema. No clubbing or cyanosis. LABORATORY DATA: Sodium 140, potassium 4.2, chloride 105, bicarbonate 19, BUN 18, creatinine 1.5. Hemoglobin 8.2. ASSESSMENT AND PLAN: 1. Sepsis syndrome. Continue current care. 2. Acute kidney injury overlying chronic kidney disease. SLED again today. Standard 27 bicarbonate and 4 potassium bath, 4 L UF goal. cc: Anil Bundy MD
[2016-10-24] MEDS: VANCOMYCIN 1 GM/NS 1 GM/250 ML IVPB IV SCH (15:18)
[2016-10-24] MEDS: THIAMINE 100 MG in NS 50 ML IV SCH (18:32)
[2016-10-24] MEDS: MORPHINE IV PRN (19:40)
--- NOTE | 2016-10-25 00:58 | PROGRESS NOTE ---
DATE: 10/24/2016 PRESENT ILLNESS: The patient has bilateral pneumonia and a group B streptococcal urinary tract infection. MEDICATIONS: This is day 2 of treatment with Levaquin, meropenem and vancomycin. PHYSICAL EXAMINATION: Vital Signs: Temperature is 97.9, pulse 126, respirations 20, blood pressure 113/87. Generally: This is an ill-appearing middle-aged female. She is intubated and sedated. Lungs: There was bilateral rhonchi. Cardiovascular: Regular heart rate. Abdomen: Soft without masses or tenderness. Neurologic: The patient is obtunded. She did not make any movements during my exam. LABORATORY AND X-RAY: Chest x-ray shows possible improvement in the left lung. The right lung remains with consolidation. CBC shows a white count of 20,810, hemoglobin 8.2, and platelet count 56,000. Creatinine is 1.5. GFR is 36. Blood gases show a pH of 7.38, a PO2 of 68, and a pCO2 of 32. Sputum is growing normal reuben and yeast. ASSESSMENT AND PLAN: The patient has an overwhelming pulmonary process, and a streptococcal urinary tract infection. For now I plan to continue with Levaquin, meropenem and vancomycin. COMORBIDITIES: Include diabetes mellitus, chronic kidney disease and iron deficiency. cc: Vicente Navarrete MD
[2016-10-25] MEDS: SOLU-CORTEF IV SCH ×3 (01:24→19:32)
[2016-10-25 04:43] LABS: ALLEN TEST YES; BE -13.7 mmoll (-3.0-3.0); BLOOD TYPE ARTERIAL; DRAW SITE R RADIAL; O2(CT) 11.1 mL/dL (15.0-23.0); PCO2(98.6) 24 mmHg (35-45); PO2(98.6) 81 mmHg (60-100); SAMPLE BLOOD; SAO2 97.1 % (95.0-100.0); SRATE 18 BPM; TVOL 500 mL; pH(98.6) 7.29 (7.35-7.45)
[2016-10-25 04:44] LABS: MODALITY VENTILATOR
[2016-10-25 04:45] LABS: BASO% 0.1 % (0.0-0.8); EOS# 0.01 X1000 (0.0-0.7); EOS% 0.1 % (0.0-10.0); HEMATOCRIT 24.6 % (37.0-47.0); IMM GRAN# 0.49 X1000 (0.0-0.04); IMM GRAN% 2.5 % (0.0-0.5); LYMPH# 0.31 X1000 (1.2-3.4); LYMPH% 1.6 % (20.5-51.1); MANUAL DIFF NEEDED? YES; MCH 29.3 PG (27-31); MCHC 32.5 g/dL (33-37); MCV 90.1 FL (81-99); MONO# 0.14 X1000 (0.11-0.59); MONO% 0.7 % (1.7-9.3); MPV 11.6 FL (7.4-10.4); PLT 54 X1000 (130-400); RBC 2.73 XMIL (4.2-5.4)
[2016-10-25 05:01] LABS: BANDS 30 % (0-1); LYMPHS 2 % (21-51)
[2016-10-25] MEDS: MERREM 500 MG in NS 50 ML IV SCH ×3 (05:05→20:35)
[2016-10-25 05:07] LABS: POTASSIUM 5.2 mmol/L (3.5-5.1)
[2016-10-25] MEDS: HUMALOG SUBQ SCH ×4 (06:53→20:38)
[2016-10-25] MEDS: SYNTHROID IV SCH (06:58)
[2016-10-25] MEDS ORDERED: HEPARIN ONE (07:23)
[2016-10-25] MEDS ORDERED: NS 2,000 ML ONE (07:23)
[2016-10-25] MEDS: PROTONIX IV SCH ×2 (08:26→20:35)
[2016-10-25] MEDS: MORPHINE IV PRN (08:28)
--- NOTE | 2016-10-25 08:41 | Diag Imaging Result Document ---
PROCEDURE NAME: CHEST-1 VIEW - 10/25/2016 SINGLE FRONTAL RADIOGRAPH OF THE CHEST: COMPARISON: 10/24/2016. FINDINGS: ET tube is stable. NG tube projects below the diaphragm and out of the field of view. The left central line is stable. Bilateral diffuse patchy infiltrates are stable. There are no new consolidations. Cardiac silhouette is stable. IMPRESSION: Stable chest.
[2016-10-25] MEDS: ATIVAN IV PRN (11:42)
--- NOTE | 2016-10-25 13:02 | PROGRESS NOTE ---
DATE: 10/25/2016 SUBJECTIVE: She remains sedated on the ventilator. OBJECTIVE: Vital Signs: Blood pressure 134/70, heart rate 84, respirations 26, afebrile. Intake 1.7 L. Output 2.8 L. General Appearance: No acute distress. Skin: Warm and dry. Eyes: Conjunctivae are pink. Neck: Neck veins are distended. Heart: Regular. Lungs: Have equal breath sounds. No crackles. Abdomen: Soft. Bowel sounds present. Extremities: Have 3+ edema. No clubbing or cyanosis. LABORATORY DATA: Sodium 140, potassium 5.2, chloride 104, bicarbonate 11. BUN 18, creatinine 1.3. Hemoglobin 8.0. IMPRESSION: 1. End-stage kidney disease. She will have SLED again today with a 27 bicarbonate and 4K bath. Goal of 4 L as her blood pressure allows. 2. Anemia, chronic. Continue to dose with erythropoietin agent as used as an outpatient. 3. Acidosis, correcting with dialysis. cc: Anil Bundy MD
--- NOTE | 2016-10-25 13:58 | PROGRESS NOTE ---
DATE: 10/25/2016 SUBJECTIVE: Today Ms. Mi continues to be critically sick but stable. Nobody was in the room to give me any interval history. Per the nursing staff, the night was uneventful. OBJECTIVE: Vital signs: Blood pressure is 107/76, pulse of 100, respirations 18. Temperature 97.6 degrees. General: Ms. Mi is a 61-year-old, female. She is in bed, synchronizing well with the ventilator. HEENT: Mucosa is pink. Anicteric. Acyanotic. Neck: Supple. Chest: Air entry is bilaterally reduced. There are some coarse crepitations in both lung gallardo. Cardiovascular: Regular rate and rhythm. No murmurs. Abdomen: Soft. There is an old infraumbilical surgical scar on the lower abdomen. Extremities: About 4+ pedal edema. JAVA J2EE TECHNICAL LEAD: Patient is nonresponsive. She would, however, move extremities to painful stimulation and she would be attempting to be biting on the EG tube. LABORATORY DATA: WBC is 19.98, hemoglobin is 8.0, platelet count of 54,000. There is 30% of bands on the peripheral smear. Sodium is 140, potassium is 5.9, chloride is 104, bicarb is 11, BUN is 18, creatinine is 1.3. I Os, urine output is 0. Dialysis output yesterday was 2800 for a negative balance of 1087. The patient still has a positive balance of over 33254 mL in her hospital stay. A chest x-ray this morning shows bilateral diffuse patchy infiltrates are stable. ASSESSMENT: 1. Acute respiratory distress, likely due to underlying bilateral pneumonia/pleural effusions. 2. Septic shock. The patient is on antibiotics. So far blood cultures have been negative. A urine culture on admission did show Strep agalactiae. Blood cultures so far have been negative. The patient is currently on levofloxacin, meropenem and vancomycin. 3. Severe bandemia with thrombocytopenia. We think this is due to sepsis. 4. Acute on chronic kidney disease. Patient is currently needing dialysis. 5. Anasarca. Patient is getting ultrafiltration during dialysis. 6. Adrenal insufficiency. Cardizem level was low. Patient is currently on stress doses of hydrocortisone. 7. Hypothyroidism. Patient is getting IV levothyroxine. 8. High anion gap metabolic acidosis I think probably is driven by the sepsis as well as the of the kidney disease. I think this will be addressed during the dialysis session. In general, Ms. Mi seems to be stable but critical. We will continue with the vent support, dialysis as needed. We will continue with the current antibiotics and patient has been started on NG tube feeding currently at 15 mL/h on Nepro and she seems to be tolerating. We will continue with that. cc: Daniel Castro MD
--- NOTE | 2016-10-25 16:49 | PROGRESS NOTE ---
DATE: 10/25/2016 PRESENT ILLNESS: The patient has an overwhelming bilateral pneumonia. She also has a group B streptococcal urinary tract infection. MEDICATIONS: This is day 3 of the patient being on Levaquin, meropenem and vancomycin. PHYSICAL EXAMINATION: Vital Signs: Temperature is 98 degrees, pulse 91, respirations 18, blood pressure 120/82. General: This is an ill-appearing, middle-aged female. She is in no acute distress. Lungs: Clear to auscultation. Cardiovascular: Regular heart rate. Abdomen: Soft without masses or tenderness. The patient has an Tai Split catheter in the right groin and a left subclavian catheter is also present. Both catheter sites are not erythematous or swollen. LAB AND X-RAY: Chest x-ray shows stable bilateral infiltrates. [place] [address], hemoglobin 8 and platelet count 54,000. Patient's blood gases show a pH of 7.29, PO2 of 81, pCO2 of 24. Creatinine is 1.3. The GFR is 42. The patient's final cultures include blood cultures which are sterile and her sputum culture grew normal reuben. ASSESSMENT AND PLAN: Patient has an overwhelming pulmonary process which I think is infectious in nature. She also has urinary tract infection. For now I plan to continue with her current antibiotics namely Levaquin, meropenem and vancomycin. COMORBIDITIES: Include diabetes mellitus, chronic kidney disease and iron deficiency. cc: Vicente Navarrete MD
[2016-10-25] MEDS: VANCOMYCIN 1 GM/NS 1 GM/250 ML IVPB IV SCH (17:23)
[2016-10-25] MEDS: THIAMINE 100 MG in NS 50 ML IV SCH (19:32)
[2016-10-25] MEDS: LEVOPHED 8 MG in D5 1/2 NS 250 ML IV SCH (19:38)
[2016-10-25] MEDS: SODIUM CHLORIDE 0.9% INJ SCH (20:35)
[2016-10-26] MEDS: SOLU-CORTEF IV SCH ×3 (02:35→17:39)
[2016-10-26] MEDS ORDERED: CALMOSEPTINE OINTMENT TOP PRN (02:38)
[2016-10-26 04:44] LABS: ALLEN TEST YES; BLOOD TYPE ARTERIAL; DRAW SITE R RADIAL; O2(CT) 10.9 mL/dL (15.0-23.0); PCO2(98.6) 29 mmHg (35-45); PO2(98.6) 62 mmHg (60-100); SAMPLE BLOOD; SAO2 96.7 % (95.0-100.0); SRATE 18 BPM; TVOL 500 mL; pH(98.6) 7.42 (7.35-7.45)
[2016-10-26] MEDS: MERREM 500 MG in NS 50 ML IV SCH ×2 (04:45→15:29)
[2016-10-26 04:46] LABS: MODALITY VENTILATOR
[2016-10-26 05:51] LABS: BASO% 0.1 % (0.0-0.8); EOS# 0.02 X1000 (0.0-0.7); EOS% 0.2 % (0.0-10.0); HEMATOCRIT 23.2 % (37.0-47.0); HEMOGLOBIN 7.9 g/dL (12.0-16.0); IMM GRAN# 0.06 X1000 (0.0-0.04); IMM GRAN% 0.5 % (0.0-0.5); LYMPH# 0.26 X1000 (1.2-3.4); LYMPH% 2.4 % (20.5-51.1); MANUAL DIFF NEEDED? YES; MCHC 34.1 g/dL (33-37); MCV 88.2 FL (81-99); MONO% 2.7 % (1.7-9.3); MPV 11.4 FL (7.4-10.4); NEUT% 94.1 % (42.2-75.2); RBC 2.63 XMIL (4.2-5.4)
[2016-10-26] MEDS: HUMALOG SUBQ SCH ×4 (06:20→20:06)
[2016-10-26] MEDS: SODIUM CHLORIDE 0.9% INJ PRN (06:20)
[2016-10-26] MEDS: SYNTHROID IV SCH (06:21)
[2016-10-26 06:25] LABS: PLT 37 X1000 (130-400)
[2016-10-26 06:47] LABS: BANDS 6 % (0-1); LYMPHS 2 % (21-51); MONO 2 % (1-9)
[2016-10-26 07:14] LABS: AGAP 14; ALBUMIN 2.3 g/dL (3.5-5.0); ALKALINE PHOSPHATASE 122 U/L (32-104); BUN 17 mg/dL (8-22); CALCIUM 8.9 mg/dL (8.8-10.2); CHLORIDE 109 mmol/L (98-107); COSMO 283; GOT 11 U/L (10-30); GPT 8 U/L (10-36); MAGNESIUM 1.7 mg/dL (1.5-2.7); POTASSIUM 5.2 mmol/L (3.5-5.1); PREALBUMIN 4.7 mg/dL (20-40); SODIUM 139 mmol/L (136-145); TCO2 16 mmol/L (25-35); TOTAL BILIRUBIN 0.79 mg/dL (0.20-1.00)
[2016-10-26] MEDS ORDERED: HEPARIN ONE (07:36)
[2016-10-26] MEDS ORDERED: NS 2,000 ML ONE (07:36)
--- NOTE | 2016-10-26 08:26 | Diag Imaging Result Document ---
PROCEDURE NAME: CHEST-1 VIEW - 10/26/2016 SINGLE FRONTAL RADIOGRAPH OF THE CHEST: COMPARISON: 10/25/2016. FINDINGS: ET tube and central line are stable. The NG tube is stable. Bilateral patchy infiltrates are essentially unchanged. No new consolidations are identified. Cardiac silhouette is stable. IMPRESSION: Stable chest.
[2016-10-26] MEDS: LEVAQUIN 500 MG in NS 100 ML IV SCH (09:20)
[2016-10-26] MEDS: PROTONIX IV SCH (09:20)
--- NOTE | 2016-10-26 09:34 | PROGRESS NOTE ---
DATE: 10/26/2016 SUBJECTIVE: She remains sedated on the ventilator. OBJECTIVE: Vital Signs: Blood pressure 113/71, heart rate 70, respiration 18, afebrile. Intake 1.3 L. Output not recorded. General: No acute distress. Skin: Warm and dry. HEENT: Conjunctivae are pink. Neck: Neck veins are not appreciated. Heart: Regular. Lungs: Have equal breath sounds. No crackles. Abdomen: Soft, nontender. Bowel sounds are present. Extremities: Have 2+ edema. No clubbing or cyanosis. LABORATORY DATA: Sodium 139, potassium 5.2, chloride 109, bicarbonate 16, BUN 17, creatinine 0.9. IMPRESSION AND PLAN: End-stage kidney disease. Continue daily SLEDD for volume management. A 4 potassium bath with 27 bicarbonate. Her acidosis is improving and her hyperkalemia is manageable. cc: Anil Bundy MD
[2016-10-26] MEDS: EPOGEN SUBQ SCH (09:57)
[2016-10-26 10:10] LABS: ALLEN TEST YES; BE -4.2 mmoll (-3.0-3.0); BLOOD TYPE ARTERIAL; DRAW SITE R RADIAL; PCO2(98.6) 31 mmHg (35-45); PO2(98.6) 72 mmHg (60-100); SAMPLE BLOOD; SAO2 93.3 % (95.0-100.0); THB 10.6 g/dL (11.5-17.4); pH(98.6) 7.41 (7.35-7.45)
[2016-10-26 10:11] LABS: MODALITY VENTILATOR
--- NOTE | 2016-10-26 13:47 | PROGRESS NOTE ---
DATE: 10/26/2016 Today Ms. Mi continues to be critical, is on the vent. OBJECTIVE: Vitals: Blood pressure is 113/71, pulse of 70, respirations 18, temperature 97.7 degrees. General Exam: Ms. Mi is a 59-year-old female. She is in bed, does not seems to be in any remarkable distress. Synchronizing very well with the ventilator. HEENT: Mucosa is pink. Anicteric. Chest: Air entry is bilaterally reduced. There is some coarse crepitations in both lung gallardo. Cardiovascular: Regular rate and rhythm. No murmurs, no rubs. Abdomen: Soft, mildly distended and bowel sounds are decreased. There is an old infraumbilical surgical scar on the lower abdomen. Extremities: About 4+ pedal edema extending all the way to the lateral abdominal felix. MODEL MAKER: Patient is nonresponsive to verbal. Will grimace to painful stimulation and will withdraw all extremities to painful stimulation. LABORATORY DATA: WBC is 11.01. Hemoglobin is 7.9, platelet count of 37,000. Chemistry: Sodium 139, potassium 5.2, chloride 109, bicarb is 16. Creatinine is down to 0.9. Patient is getting dialysis. Prealbumin is 4.7. Blood cultures so far have been negative. Urine cultures did show on presentation strep agalactiae group B. A chest x-ray this morning continues to show bilateral patchy infiltrates essentially unchanged. No new consolidation. Patient's I's and O's: No urine output yesterday. Patient had 2800 removed during dialysis yesterday. ASSESSMENT: 1. ARDS likely due to underlying bilateral pneumonia/pleural effusions. 2. Septic shock. Patient is on triple antibiotics. Being followed by ID and also continues to be on pressors. 3. Bandemia with thrombocytopenia. Bandemia has improved however thrombocytopenia worsened overnight. I think it is all driven by the sepsis. The patient does not show any overt bleeding. I would therefore not transfuse platelet at this point in time 4. Anasarca. The patient is getting ultrafiltration during dialysis. She is still about 20,000 mL positive on fluid. 5. Adrenal insufficiency. Patient is on stress doses of hydrocortisone. 6. Hypothyroidism. She is getting IV levothyroxine. 7. Acute on chronic kidney failure. Creatinine has actually normalized. The patient has not had any urine output. Continues to be anuric and will be needing the dialysis. 8. Metabolic acidosis with mild hypokalemia likely due to the underlying renal failure. This will be adjusted during dialysis. critical time spent 45 minutes cc: Daniel Castro MD MTDD
[2016-10-26] MEDS: LEVOPHED 8 MG in D5 1/2 NS 250 ML IV SCH (18:28)
--- NOTE | 2016-10-26 18:36 | PROGRESS NOTE ---
DATE: 10/26/2016 PRESENT ILLNESS: The patient has a overwhelming bilateral pneumonia. She also has a streptococcal urinary tract infection which I think is not any continued source of sepsis. MEDICATIONS: This is day 4 of treatment with Levaquin, meropenem and vancomycin. PHYSICAL EXAMINATION: Vital Signs: Temperature is 98.1 degrees, pulse 93, respirations 13, blood pressure 81/30. General: This is an ill-appearing, elderly female. She is intubated. She is sedated. Lungs: Have bilateral rhonchi. Cardiovascular: Heart rate is regular and rapid. Chest: There is a left subclavian catheter in place. The catheter site is not erythematous or swollen. Likewise in the right groin there is an Tai Split catheter for surgery and it too does not appear to be swollen or red. LAB AND X-RAY: Chest x-ray shows bilateral infiltrates. CBC shows a white count of 11,010, hemoglobin 7.9 and platelet count 37,000. Arterial blood gases show a pH of 7.41, a PO2 of 72, a pCO2 of 31. Creatinine 0.9. GFR is greater than 60. Hepatitis panel is nonreactive. ASSESSMENT AND PLAN: The patient has an overwhelming pulmonary process which I think is infectious in nature. She also has a urinary tract infection which as mentioned above, I do not think contributes much to her septic condition. My plan is to continue with the current antibiotics. COMORBIDITIES: Include diabetes mellitus, chronic kidney disease and iron deficiency. cc: Vicente Navarrete MD
[2016-10-26] MEDS: THIAMINE 100 MG in NS 50 ML IV SCH (19:48)
[2016-10-26] MEDS: VANCOMYCIN 1 GM/NS 1 GM/250 ML IVPB IV SCH (19:51)
[2016-10-26] MEDS: MORPHINE IV PRN (19:54)
[2016-10-27] MEDS: MERREM 500 MG in NS 50 ML IV SCH ×4 (00:18→23:40)
[2016-10-27] MEDS: SOLU-CORTEF IV SCH ×3 (02:16→18:20)
[2016-10-27] MEDS: ATIVAN IV PRN (04:02)
[2016-10-27 04:44] LABS: ALLEN TEST YES; BE -2.1 mmoll (-3.0-3.0); BLOOD TYPE ARTERIAL; DRAW SITE R RADIAL; O2(CT) 13.1 mL/dL (15.0-23.0); PCO2(98.6) 26 mmHg (35-45); PO2(98.6) 95 mmHg (60-100); SAMPLE BLOOD; SAO2 97.9 % (95.0-100.0); SRATE 18 BPM; THB 9.4 g/dL (11.5-17.4); TVOL 500 mL
[2016-10-27 04:45] LABS: MODALITY VENTILATOR
[2016-10-27 05:59] LABS: HEMATOCRIT 24.5 % (37.0-47.0); MCH 29.1 PG (27-31); MCHC 32.7 g/dL (33-37); MCV 89.1 FL (81-99); RBC 2.75 XMIL (4.2-5.4)
[2016-10-27 06:00] LABS: BASO% 0.1 % (0.0-0.8); IMM GRAN# 0.15 X1000 (0.0-0.04); IMM GRAN% 1.6 % (0.0-0.5); LYMPH# 0.24 X1000 (1.2-3.4); LYMPH% 2.6 % (20.5-51.1); MANUAL DIFF NEEDED? YES; MONO# 0.21 X1000 (0.11-0.59); MONO% 2.3 % (1.7-9.3); NEUT% 93.4 % (42.2-75.2)
[2016-10-27 06:02] LABS: AGAP 11; BUN 17 mg/dL (8-22); CHLORIDE 109 mmol/L (98-107); COSMO 279; POTASSIUM 5.4 mmol/L (3.5-5.1); SODIUM 138 mmol/L (136-145); TCO2 18 mmol/L (25-35)
[2016-10-27] MEDS: HUMALOG SUBQ SCH ×4 (06:02→20:07)
[2016-10-27] MEDS: SYNTHROID IV SCH (06:03)
[2016-10-27] MEDS: SODIUM CHLORIDE 0.9% INJ PRN (06:03)
[2016-10-27 06:42] LABS: PLT 36 X1000 (130-400)
[2016-10-27 07:35] LABS: BANDS 18 % (0-1); LYMPHS 2 % (21-51); MONO 2 % (1-9)
[2016-10-27] MEDS ORDERED: NS 2,000 ML ONE (07:51)
[2016-10-27] MEDS ORDERED: HEPARIN ONE (07:51)
--- NOTE | 2016-10-27 08:30 | Diag Imaging Result Document ---
PROCEDURE NAME: CHEST-1 VIEW - 10/27/2016 PORTABLE CHEST: COMPARISON: 10/26/2016. FINDINGS: No changer in the endotracheal tube, the left subclavian line, or the nasogastric tube. Heart is not enlarged. There are bilateral infiltrates. These are slightly less dense than on the prior exam. Small pleural effusions remain. IMPRESSION: Mild interval improvement.
[2016-10-27] MEDS: PROTONIX IV SCH (09:41)
--- NOTE | 2016-10-27 13:00 | PROGRESS NOTE ---
DATE: 10/27/2016 SUBJECTIVE: Today, Ms. Mi continues to be stable, but critical. She is still on ventilator, synchronizing very well. There have not been any complaints, per the nursing staff. OBJECTIVE: Vital signs: Blood pressure is 121/78, pulse of 67, respirations 18 , temperature 97.5 degrees, and patient is saturating 100% on mechanical ventilation. General: Ms. Mi is a 61- year-old female. She is in bed, intubated. HEENT: Mucosa pink and moist. Anicteric. Acyanotic. Neck: Supple. Chest: Air entry is bilaterally reduced. There are crepitations in both lung gallardo. Abdomen: Soft, distended. Extremities: About 4+ pedal edema, both lower and upper extremities. Central Nervous System: Patient is not responsive to verbal command, will grimace and withdraw from painful stimulation. LABORATORY DATA: WBC is down to 9.23, hemoglobin is 8.0, platelet count is 36, 000. There is 18% of bands on the peripheral smear. Chemistry is reviewed. Sodium is 128, potassium is 5.4, chloride is 109, bicarbonate is 18. CURRENT MEDICATIONS: 1. Epogen. 2. Hydrocortisone 100 mg q.8. 3. Levofloxacin 500 q.48. 4. Levothyroxine 50 mg IV daily. 5. Meropenem 500 q.8. 6. Protonix 40 mg IV daily. 7. Thiamine. 8. Vancomycin 1 g after each dialysis. INTAKE AND OUTPUT: Zero urine output yesterday. Patient is currently ongoing hemodialysis. IMAGING: Chest x-ray done this morning continued to show bilateral infiltrates with some mild interval improvement. ASSESSMENT: 1. Adult respiratory distress syndrome. The patient continues to be on the ventilator and Pulmonary is on board. 2. Septic shock. The patient is on triple antibiotics, being followed by Dr. Navarrete. Is now on only Levophed. 3. Bandemia with thrombocytopenia. I think this is related to the sepsis. Will continue observing this as we treat the underlying disease. 4. Anasarca. Patient is still obviously fluid overloaded and getting ultrafiltration with dialysis. 5. Adrenal insufficiency. We will continue with hydrocortisone. 6. Hypothyroidism. Will continue with levothyroxine. 7. Acute on chronic kidney injury. Patient continues to have zero urine output , is getting dialysis. 8. Metabolic acidosis with hyperkalemia due to the underlying renal failure. The patient is getting dialysis to correct all the acid-base and electrolyte abnormalities. In general, Ms. Mi continues to be extremely critical. We will continue with the current supportive measures, including the ventilator support and hemodialysis. Will also continue with the current antibiotic coverage and the treatment of the other comorbidities. CRITICAL TIME SPENT: Forty-five minutes. cc: Daniel Castro MD MTDStephie
--- NOTE | 2016-10-27 14:20 | PROGRESS NOTE ---
DATE: 10/27/2016 SUBJECTIVE: The patient remains sedated and mechanically ventilated. OBJECTIVE: Vital signs: Temperature 97.5 degrees, pulse 67, respiratory rate 18, blood pressure 121/78. Intake 1.3 L. Output 2.5 L. PHYSICAL EXAMINATION: General: Chronically, ill-appearing, middle-aged female, currently mechanically ventilated. She is undergoing SLED dialysis. HEENT: Normocephalic , atraumatic. Orally intubated. Conjunctivae are pale. Neck is supple. No JVD. Cardiovascular: Regular rate and rhythm. Pulmonary: She has equal excursion. She is clear bilaterally. Abdomen is soft, positive bowel sounds. Flat. : Not inspected. He has a Barboza. Extremities : 1+ pretibial edema. No clubbing, cyanosis. No movement. Integumentary: Skin is pale, warm , and dry. LAB DATA: WBC of 9.2, hemoglobin 8.0. Sodium 138, potassium 5.4, CO2 18, BUN 17, creatinine 0.8. ASSESSMENT AND PLAN: 1. End-stage renal disease management. Continue daily sustained low-efficiency dialysis for volume management. addendum: Her SLED treatment was discontinued early secondary to severe hypotension with minimal response to pressor support. aa 2. Hypoglycemic episode followed by primary. 3. Electrolytes, acid-base balance. These are acceptable. Continue to correct on dialysis. 4. Anemia, stable. Dictated by KALYN Gomez for Anil Bundy MD Data reviewed, discussed with Mary Ann on 10/27/16. I agree with the above assessment and plan of care. cc: Anil Bundy MD [facility]
[2016-10-27] MEDS: LEVOPHED 8 MG in D5 1/2 NS 250 ML IV SCH (14:27)
[2016-10-27] MEDS: VANCOMYCIN 1 GM/NS 1 GM/250 ML IVPB IV SCH (16:33)
[2016-10-27] MEDS: THIAMINE 100 MG in NS 50 ML IV SCH (20:07)
[2016-10-28] MEDS: SOLU-CORTEF IV SCH ×3 (01:27→18:08)
[2016-10-28 05:02] LABS: ALLEN TEST YES; BE 1.2 mmoll (-3.0-3.0); BLOOD TYPE ARTERIAL; DRAW SITE R RADIAL; O2(CT) 12.6 mL/dL (15.0-23.0); PCO2(98.6) 34 mmHg (35-45); PO2(98.6) 96 mmHg (60-100); SAMPLE BLOOD; SAO2 98.2 % (95.0-100.0); SRATE 10 BPM; TVOL 500 mL; pH(98.6) 7.47 (7.35-7.45)
[2016-10-28 05:03] LABS: MODALITY VENTILATOR
[2016-10-28] MEDS: HUMALOG SUBQ SCH ×4 (05:59→20:02)
[2016-10-28] MEDS: LEVOPHED 8 MG in D5 1/2 NS 250 ML IV SCH (05:59)
[2016-10-28] MEDS: SODIUM CHLORIDE 0.9% INJ PRN (05:59)
[2016-10-28] MEDS: SYNTHROID IV SCH (06:00)
[2016-10-28 06:39] LABS: AGAP 10; BUN 21 mg/dL (8-22); CALCIUM 9.1 mg/dL (8.8-10.2); CHLORIDE 105 mmol/L (98-107); COSMO 283; POTASSIUM 5.3 mmol/L (3.5-5.1); SODIUM 137 mmol/L (136-145); TCO2 22 mmol/L (25-35)
--- NOTE | 2016-10-28 07:04 | Diag Imaging Result Document ---
PROCEDURE NAME: CHEST-1 VIEW - 10/28/2016 PORTABLE CHEST: COMPARISON: 10/27/2016. FINDINGS: No change in the endotracheal tube, the nasogastric tube, or in the left subclavian line. The heart is not enlarged. There are increased interstitial markings in the mid and lower lungs similar to the prior exam. There are small pleural effusions. The overall appearance of the chest is fairly similar to that of the prior exam. IMPRESSION: No interval improvement.
[2016-10-28 07:20] LABS: BASO% 0.1 % (0.0-0.8); EOS# 0.01 X1000 (0.0-0.7); EOS% 0.1 % (0.0-10.0); HEMOGLOBIN 8.9 g/dL (12.0-16.0); IMM GRAN% 1.3 % (0.0-0.5); LYMPH# 0.22 X1000 (1.2-3.4); LYMPH% 1.5 % (20.5-51.1); MANUAL DIFF NEEDED? YES; MCH 29.9 PG (27-31); MCV 90.6 FL (81-99); MONO# 0.33 X1000 (0.11-0.59); MONO% 2.2 % (1.7-9.3); MPV 13.1 FL (7.4-10.4); NEUT% 94.8 % (42.2-75.2); PLT 42 X1000 (130-400); RBC 2.98 XMIL (4.2-5.4)
[2016-10-28] MEDS: MERREM 500 MG in NS 50 ML IV SCH ×2 (07:49→15:37)
[2016-10-28 08:08] LABS: BANDS 12 % (0-1); LYMPHS 2 % (21-51); MONO 2 % (1-9)
[2016-10-28] MEDS: LEVAQUIN 500 MG in NS 100 ML IV SCH (09:24)
[2016-10-28] MEDS: PROTONIX IV SCH (09:25)
[2016-10-28] MEDS: SODIUM CHLORIDE 0.9% INJ SCH (09:25)
[2016-10-28 10:08] LABS: ALLEN TEST YES; BE 1.8 mmoll (-3.0-3.0); BLOOD TYPE ARTERIAL; DRAW SITE R RADIAL; MODALITY VENTILATOR; PCO2(98.6) 35 mmHg (35-45); PO2(98.6) 95 mmHg (60-100); SAMPLE BLOOD; SAO2 97.3 % (95.0-100.0); THB 7.9 g/dL (11.5-17.4); pH(98.6) 7.47 (7.35-7.45)
[2016-10-28] MEDS ORDERED: INSULIN PEN NEEDLES ONE (10:59)
[2016-10-28] MEDS: LANTUS SUBQ SCH (11:00)
--- NOTE | 2016-10-28 12:29 | PROGRESS NOTE ---
DATE: 10/28/2016 SUBJECTIVE: Patient remains intubated. She is no longer sedated. She opens her eyes and thrash her head about. OBJECTIVE: Vital Signs: Temperature 98 degrees, pulse 71, respiratory rate 10 , blood pressure 113/70. Intake 1.3 L. Output 300 mL. General: Chronically ill-appearing, middle-aged female, in bed, currently mechanically ventilated. HEENT: Normocephalic, atraumatic. Orally intubated. GLENNA. Conjunctivae are pale. She has scleral edema noted. She is thrashing her head back and forth. Neck: Supple. Trachea midline. Cardiovascular: Regular rate and rhythm. Pulmonary: Equal excursion. She remains mechanically ventilated. Abdomen: Flat, soft. Positive bowel sounds. : Not inspected. Barboza catheter with scant urine. Extremities: There is 1+2+ pretibial edema. No clubbing, cyanosis. She has weeping noted bilateral upper and lower extremities. She has ecchymoses noted bilateral upper and lower extremities with dependent edema. Integumentary: Skin is pale, warm, and dry otherwise. LAB DATA: WBC of 14.9, hemoglobin 8.9, platelets of 42,000. Sodium 137, potassium 5.3, chloride 105, CO2 22, BUN 21, creatinine 0.9. She has a chest x-ray that indicates pleural effusion but no changes. ASSESSMENT AND PLAN: 1. End-stage renal disease management. The patient was unable to tolerate a full treatment of dialysis yesterday even with SLED. We are holding dialysis today. We will re-evaluate her in the morning. 2. Respiratory failure. Followed by primary and pulmonology. 3. Electrolytes, acid-base balance. These are stable. 4. Anemia. Essentially unchanged. Dictated by KALYN Gomez for Anil Bundy MD Data reviewed, discussed with Mary Ann on 10/28/16. I agree with the above assessment and plan of care. cc: Anil Bundy MD [facility]
[2016-10-28] MEDS: THIAMINE 100 MG in NS 50 ML IV SCH (18:15)
--- NOTE | 2016-10-28 18:32 | PROGRESS NOTE ---
DATE: 10/28/2016 SUBJECTIVE: Today Ms. Mi continues to be stable. She was successfully extubated early this morning but she does not really interact and she does not follow any commands. OBJECTIVE: Vital signs: Blood pressure is 113/59, pulse of 78, respirations 23, temperature 97.2 degrees. General: Ms. Mi 61-year-old female. She looks older than her age. She is in bed, not seemingly distressed. HEENT: Mucosa is pink and moist. Anicteric. Acyanotic. Neck: Supple. Chest: Good air entry bilaterally. There is bilateral crepitations in posterior lung gallardo. Cardiovascular: Regular rate and rhythm. Abdomen: Soft. There is an old infraumbilical scar. Extremities: About 4+ pedal edema all the way to the lateral abdominal wall. SYSTEMS DESIGN ENGINEER: Patient is not responsive to verbal stimulation. Will withdrawal to painful stimulation. LABORATORY DATA: WBC is 14.92, hemoglobin is 8.9, platelet count of 42,000 slightly improving. There is 12% of bands on the peripheral smear. Chemistry is reviewed. Potassium is 5.3, bicarb is 22, glucose is 208. Heparin induced platelet antibody is negative. ASSESSMENT: 1. Acute respiratory distress syndrome. The patient is successfully extubated. 2. Septic shock. Blood pressure is a lot better. She is currently off the Levophed. 3. Bandemia with thrombocytopenia due to sepsis. 4. Anasarca. The patient is getting ultrafiltration with dialysis. 5. Adrenal insufficiency. Will continue with stress doses of hydrocortisone. 6. Hypothyroidism. Patient is getting levothyroxine. 7. Acute on chronic kidney disease. The patient continues to have no urine output. She is getting dialysis. The dialysis was withheld today. Will see how her numbers look like and hopefully get to be dialyzed again. 8. Mild non-gap acidosis with hyperkalemia likely due to renal disease. Will continue to observe. 9. Hyperglycemia. I think part of it is just partly due to steroid use. We will add glargine for a long acting coverage. cc: Daniel Castro MD
[2016-10-28] MEDS: D50W SYRINGE IV PRN (20:11)
[2016-10-29] MEDS: MERREM 500 MG in NS 50 ML IV SCH ×4 (00:02→23:17)
[2016-10-29] MEDS: SOLU-CORTEF IV SCH ×3 (01:29→18:10)
[2016-10-29 04:47] LABS: ALLEN TEST YES; BE 0.5 mmoll (-3.0-3.0); BLOOD TYPE ARTERIAL; DRAW SITE R RADIAL; METHB 0.3 % (0.0-1.5); O2(CT) 13.7 mL/dL (15.0-23.0); PCO2(98.6) 41 mmHg (35-45); PO2(98.6) 80 mmHg (60-100); SAMPLE BLOOD; SAO2 94.1 % (95.0-100.0); THB 10.3 g/dL (11.5-17.4)
[2016-10-29 04:48] LABS: MODALITY CANNULA
[2016-10-29 05:52] LABS: CALCIUM 9.4 mg/dL (8.8-10.2)
[2016-10-29 06:02] LABS: BASO% 0.2 % (0.0-0.8); HEMATOCRIT 25.4 % (37.0-47.0); HEMOGLOBIN 8.2 g/dL (12.0-16.0); IMM GRAN# 0.42 X1000 (0.0-0.04); IMM GRAN% 3.5 % (0.0-0.5); LYMPH# 0.11 X1000 (1.2-3.4); LYMPH% 0.9 % (20.5-51.1); MANUAL DIFF NEEDED? YES; MCH 29.9 PG (27-31); MCHC 32.3 g/dL (33-37); MCV 92.7 FL (81-99); MONO# 0.18 X1000 (0.11-0.59); MONO% 1.5 % (1.7-9.3); MPV 12.6 FL (7.4-10.4); NEUT% 93.9 % (42.2-75.2); PLT 38 X1000 (130-400); RBC 2.74 XMIL (4.2-5.4)
[2016-10-29] MEDS: HUMALOG SUBQ SCH ×4 (06:19→20:27)
[2016-10-29] MEDS: SODIUM CHLORIDE 0.9% INJ PRN (06:20)
[2016-10-29] MEDS: SYNTHROID IV SCH (06:20)
[2016-10-29 07:28] LABS: BANDS 26 % (0-1); LYMPHS 6 % (21-51)
[2016-10-29] MEDS ORDERED: ALBUMIN 25% IV ONE (07:39)
[2016-10-29] MEDS ORDERED: NS 2,000 ML ONE (07:41)
[2016-10-29] MEDS ORDERED: HEPARIN ONE (07:41)
--- NOTE | 2016-10-29 07:59 | Diag Imaging Result Document ---
PROCEDURE NAME: CHEST-1 VIEW - 10/29/2016 AP PORTABLE CHEST, 10/29/2016 AT 0500 HOURS: FINDINGS: There is an NG tube with its tip below the diaphragm. There are bilateral pleural effusions. There is atelectasis present in both lung bases particularly the left lower lobe as well as the medial portion of the left upper lobe. The atelectasis is worse than on 10/28/2016. Otherwise, there has been very little change. IMPRESSION: Worsened left-sided atelectasis.
[2016-10-29] MEDS: EPOGEN SUBQ SCH (08:38)
[2016-10-29] MEDS: PROTONIX IV SCH (08:38)
[2016-10-29] MEDS: LANTUS SUBQ SCH (08:38)
[2016-10-29] MEDS: SODIUM CHLORIDE 0.9% INJ SCH (08:38)
[2016-10-29] MEDS: NEO-SYNEPHRINE 100 MG in NS 250 ML IV SCH (09:33)
--- NOTE | 2016-10-29 11:02 | PROGRESS NOTE ---
DATE: 10/29/2016 SUBJECTIVE: Patient was extubated successfully yesterday. She remains on nasal cannula today. She is trying to talk but it is very difficult to understand anything that she says. OBJECTIVE: Vital Signs: Temperature 96.9 degrees, pulse 79, respiratory rate 18, blood pressure 111/62. Intake 1.5 L. Output 10 mL. PHYSICAL EXAMINATION: General: This is a chronically ill-appearing, middle- aged female, resting in bed. She is awake. She makes eye contact. She tries to talk. HEENT: Normocephalic, atraumatic. Oral mucosa is dry. Neck: Supple. Trachea midline. She has positive JVD. Cardiovascular: Reveals a regular rate and rhythm. Pulmonary: She has rhonchi bilaterally with decreased breath sounds to the bases, worse on the left. Remains on 2 L nasal cannula. Abdomen: Flat, soft. Positive bowel sounds. : She has a Barboza catheter. There is scant urine. Extremities: She continues with 1 to 2+ pretibial edema. Her extremities are also wasted. No clubbing, cyanosis. Integumentary: Ecchymoses noted bilateral upper and lower extremities and to the skin of the chest wall as well. LAB DATA: WBC of 11.9, hemoglobin 8.2, platelet count of 38,000. Sodium 140, potassium 5.0, CO2 24, BUN 36, creatinine 1.3, and calcium 9.4. ASSESSMENT AND PLAN: 1. End-stage renal disease management. We will attempt again to dialyze her with SLED today for fluid management. This was limited previously secondary to hypotension. She is more alert today. 2. Respiratory failure. Followed by pulmonology. She was successfully extubated yesterday; however, chest x-ray indicates worsening atelectasis today. 3. Electrolytes, acid-base balance. We will address these on dialysis today. 4. Anemia. Essentially unchanged throughout the hospitalization. Seen, data reviewed, discussed with Bryant Cagle on 10/29/16. I agree with the above assessment and plan of care. rg Dictated by KALYN Gomez for Anil Bundy MD cc: Anil Bundy MD [facility]
[2016-10-29 13:00] LABS: INR 1.21; PROTIME 12.9 Seconds (9.2-11.7)
--- NOTE | 2016-10-29 15:54 | PROGRESS NOTE ---
DATE: 10/29/2016 SUBJECTIVE: Today Ms. Mi referred to be doing a little better. The was also at the bedside at the time of the encounter. OBJECTIVE: Vital signs: Blood pressure is 121/66, pulse of 71, respiration is 18, and temperature 97.1 degrees. General: Ms. Mi is a 59-year-old female. She is in bed. She did not seem to be in overt distress. HEENT: Mucosa is pink and moist. Anicteric. Acyanotic. Neck: Supple. Chest: Air entry is bilaterally reduced with some bibasilar crepitations. Cardiovascular: Regular rate and rhythm. No murmurs. No rubs. Abdomen: Soft, mildly distended. There is an old infraumbilical scar. Extremities: About 4+ pedal edema. 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 She is able to verbalize yes or no but she is still not very cooperative. She will move all of her extremities. LABORATORY DATA: WBC is 11.92, hemoglobin is 8.2, platelet count of 38,000. There are 26% bands on the peripheral smear. INR is 1.21. Sodium is 140, potassium is 5.0, chloride is 107, bicarb is 24, creatinine is 1.3, glucose is 201. ASSESSMENT: 1. Acute hypoxemic respiratory failure. The patient was intubated. Was successfully extubated and yesterday. Today is day 1 postop. Patient seems to be doing remarkably fine. 2. Septic shock. Patient was on Levophed and continues to be needing this only for dialysis. The urine was positive for strep agalactiae UTI. Patient is currently on antibiotics and is being followed up by Dr. Navarrete. 3. Bandemia with thrombocytopenia. We think this is mainly due to sepsis; however, thrombocytopenia has not remarkably improved. There is also the thought process of DIC we consulted hematology/oncology to evaluate the patient. 4. Anasarca. Patient is massively fluid overloaded and I think still has about 9000 L on board. She is currently receiving hemodialysis with ultrafiltration and patient has been receiving this since October 23, 2016. She has had a total of 4 sessions and today will be the 5th session of dialysis. 5. Acute on chronic kidney disease. 6. Hyperglycemia. I think partly this is due to the steroids that she is on. PLAN: In general, Ms. Mi is a 61-year-old female who initially presented to [facility] on 10/16/2016. At that occasion it was due to the fact that her glucose was dropping and her hemoglobin was also low. Patient was transfused and brought here to [facility] for GI consult. Subsequently Dr. Bustamante saw her and EGD was done on 10/18/2016, where the patient was found to have duodenal ulcers in the duodenal bulb with some erosive gastritis. However, during the hospital course, patient became fluid overloaded, got into ARDS, and had to be intubated, which happened on 10/20/2016. The patient remained on the ventilator until yesterday, 10/28/2016, when she was successfully extubated. She is currently doing a little better. We think she does have some adrenal insufficiency for which she is getting steroids; fluid overload, ONELIA on CKD for which she is getting dialysis. So in the nursing home, we are going to consult LTAC to evaluate the patient for LTAC admission since I think the patient is going to be needing more inpatient physical rehabilitation, will also be needing dialysis at least for now, and her IV antibiotics for the pulmonary process which we think is pneumonia. Today she wants to have some hot tea so we will get her clear liquids to see if she will be able to tolerate. Once her mentation gets better then we will switch her from the NG tube feeding to normal feeding. cc: Daniel Castro MD MTDStephie
[2016-10-29] MEDS: VANCOMYCIN 1 GM/NS 1 GM/250 ML IVPB IV SCH (16:51)
[2016-10-29] MEDS: THIAMINE 100 MG in NS 50 ML IV SCH (18:14)
--- NOTE | 2016-10-29 18:49 | CONSULTATION ---
DATE OF CONSULTATION: 10/29/2016 CONSULTATION REQUESTED BY: Dr. Castro. CONSULTATION FOR: Thrombocytopenia. HISTORY OF PRESENT ILLNESS: Ms Kasia Mi is a 61-year-old female who is known to us as we follow her for iron deficiency as well as for anemia secondary to chronic kidney disease, who was found by her to be slumped over and unresponsive in her wheelchair at home. Upon further workup, it revealed that the patient had hypoglycemia as well as hypotension. The patient was also found to have sepsis secondary to pneumonia as well as urinary tract infection. She began to experience multiorgan system failure and required both intubation as well as hemodialysis. Infectious Disease has also been consulted to help with the management of her infection. The patient presented with normal platelets in the 130,000 range. Her platelet count today is down to 38,000. She has no active bleeding. Her platelet count has been up and down some during her hospital course. PAST MEDICAL HISTORY: 1. Hypothyroidism. 2. Type 1 diabetes since age 35. 3. Osteoporosis. 4. History of cervical cancer. 5. End-stage renal disease. 6. History of iron-deficiency anemia. 7. History of peptic ulcer disease. 8. Neuropathy. 9. Hypertension. 10. Vitamin D deficiency. SURGICAL HISTORY: 1. Status post bilateral tubal ligation. 2. section. 3. 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 SOCIAL HISTORY: The patient continues to smoke about half a pack of cigarettes per day for the last 28 years. She previously drank alcohol but stopped in 2006. The patient denies any illicit drug use. She currently lives at home with her . FAMILY HISTORY: Positive for her mother who had pancreatic cancer and her father who is secondary to suicide. REVIEW OF SYSTEMS: As per the HPI. All else is either negative or noncontributory. PHYSICAL EXAM: Vital Signs: Temperature 97.1 degrees, heart rate 113, respirations 23, blood pressure 121/66, O2 saturation 100% on 2 L nasal cannula. General: This is a female lying in hospital bed in the ICU. She opens her eyes to command but does not really seem strong enough to speak at this time. No one is at bedside. HEENT: Head normocephalic, atraumatic. Pupils appear to be equal, round and reactive. Ears, nose, throat, neck and mouth: Oral mucosa appears to be normal. Trachea is midline. Cardiovascular: S1-S2 heard. Some tachycardia. No murmurs, gallops, rubs appreciated. Respiratory: Patient has coarse breath sounds bilaterally anteriorly. No rales or rhonchi noted. Gastrointestinal: Abdomen is soft and nondistended. Positive bowel sounds. Musculoskeletal: No bony abnormalities noted except for the amputation as previously mentioned. Extremities: Patient has bilateral lower extremity edema that is +2 pitting. No erythema or warmth noted. Patient also has edema in her bilateral upper extremities with the right being slightly larger than the left. Neurologic: Again, patient opens her eyes to command. She does not seem obtunded but rather very lethargic and weak. LABS AND STUDIES: White blood cell is 11.93, hemoglobin 8.2, hematocrit 25.4, platelets 38,000. Sodium 140, potassium 5.0, chloride 105, CO2 24, BUN 36, creatinine 1.3, blood glucose 201. PTT 30.8, iron 33, TIBC 69, saturation percent is 48 and ferritin 310. ASSESSMENT/PLAN: 1. Thrombocytopenia. Will go ahead and check a DIC panel. Patient does have sepsis with multiorgan failure. Platelet count been waxing, waning over the last several days. She does not have any active bleeding. Likely she has some depression of her bone marrow secondary to her acute illness. 2. Anemia. Overall stable. Iron studies were actually previously checked and are mostly consistent with anemia of chronic disease. She is currently getting Epogen. Will continue to monitor and transfuse as needed. 3. End-stage renal disease on hemodialysis. As per Dr. Bundy. She is currently getting SLED. 4. Respiratory failure. Previously intubated but has now been extubated and is on nasal cannula. Chest x-ray is essentially stable from today. Continue IV antibiotics. Continue further management per pulmonology and infectious disease. 5. Electrolyte imbalances. Per nephrology. Overall stable with no critical values at this time. We want to thank you for this consult, allowing us to participate in Ms Dominguez's care while she is at [facility], will continue to follow along adjust our treatment plan per hospital course. Dictated by JESSICA Agarwal for Cordelia Simms MD cc: Cordelia Simms MD
[2016-10-29] MEDS ORDERED: BENADRYL PO ONE (21:16)
[2016-10-29] MEDS ORDERED: TYLENOL PO ONE (22:00)
--- NOTE | 2016-10-30 00:32 | PROGRESS NOTE ---
DATE: 10/29/2016 PRESENT ILLNESS: The patient was treated for an overwhelming bilateral pneumonia. The patient also had a streptococcal urinary tract infection, which may not have contributed much to the patient's sepsis. MEDICATIONS: This is day 5 of treatment with Levaquin and meropenem, and day 7 of treatment with vancomycin. PHYSICAL EXAMINATION: Vital Signs: Temperature is 97.4 degrees, pulse 70, respirations 18, blood pressure 101/53. General: This is a chronically ill-appearing middle-aged female. She has been extubated. She is breathing on her own, and seems to be doing relatively well. She is in no acute distress at this time. Lungs: Clear to auscultation. Cardiovascular: Regular heart rate. Abdomen: Soft and nontender. The patient has a triple-lumen catheter present in the left side of the chest. In the right groin, there is an Tai Split catheter for dialysis. LABORATORY STUDIES AND X-RAYS: Chest x-ray shows bilateral pleural effusions and atelectasis. CBC shows a white count of 11,930, hemoglobin 8.2, and platelet count 38,000. Patient's blood gases show a pH of 7.4, PO2 of 80, and pCO2 of 41. Creatinine is 1.3. GFR is 42. ASSESSMENT AND PLAN: The patient appears to be getting over her pneumonia. I think at this time I am going to go ahead and stop vancomycin, and if she does well off that, I will stop Levaquin and meropenem. The patient's comorbidities include diabetes mellitus, chronic kidney disease, and iron deficiency. cc: Vicente Navarrete MD
[2016-10-30] MEDS: SOLU-CORTEF IV SCH ×3 (01:32→18:21)
[2016-10-30 04:52] LABS: BASO% 0.1 % (0.0-0.8); HEMATOCRIT 23.2 % (37.0-47.0); HEMOGLOBIN 7.4 g/dL (12.0-16.0); IMM GRAN# 0.13 X1000 (0.0-0.04); IMM GRAN% 1.3 % (0.0-0.5); LYMPH# 0.12 X1000 (1.2-3.4); LYMPH% 1.2 % (20.5-51.1); MANUAL DIFF NEEDED? YES; MCH 30.3 PG (27-31); MCHC 31.9 g/dL (33-37); MCV 95.1 FL (81-99); MONO# 0.29 X1000 (0.11-0.59); MONO% 2.8 % (1.7-9.3); NEUT% 94.6 % (42.2-75.2); RBC 2.44 XMIL (4.2-5.4)
[2016-10-30 04:54] LABS: PLT 37 X1000 (130-400)
[2016-10-30 05:09] LABS: BLOOD TYPE ARTERIAL; SAMPLE BLOOD
[2016-10-30 05:12] LABS: PCO2(98.6) 43 mmHg (35-45); PO2(98.6) 65 mmHg (60-100); pH(98.6) 7.44 (7.35-7.45)
[2016-10-30 05:13] LABS: DRAW SITE R RADIAL; MODALITY CANNULA
[2016-10-30 05:14] LABS: ALLEN TEST YES
[2016-10-30 05:31] LABS: BANDS 18 % (0-1); LYMPHS 2 % (21-51); MONO 2 % (1-9)
[2016-10-30] MEDS: HUMALOG SUBQ SCH ×4 (06:00→20:55)
[2016-10-30] MEDS: SYNTHROID IV SCH (06:03)
[2016-10-30] MEDS: MERREM 500 MG in NS 50 ML IV SCH ×3 (06:40→23:04)
[2016-10-30 07:06] LABS: AGAP 9; BUN 21 mg/dL (8-22); CHLORIDE 105 mmol/L (98-107); COSMO 286; LDH 212 U/L (135-214); POTASSIUM 4.9 mmol/L (3.5-5.1); SODIUM 142 mmol/L (136-145); TCO2 28 mmol/L (25-35)
--- NOTE | 2016-10-30 08:14 | Diag Imaging Result Document ---
PROCEDURE NAME: CHEST-1 VIEW - 10/30/2016 SINGLE FRONTAL RADIOGRAPH OF THE CHEST: COMPARISON: 10/29/2016. FINDINGS: Left subclavian line is stable. NG tube projects below the diaphragm and out of the field of view. Bilateral small pleural effusions are essentially stable given differences in positioning. Bibasilar atelectasis and/or infiltrate is again noted but appears to have improved on the left. No new consolidation is identified. Cardiac silhouette is stable. IMPRESSION: Some improvement of atelectasis and/or infiltrate at the left lower lung zone. Essentially stable, otherwise.
[2016-10-30] MEDS: LEVAQUIN 500 MG in NS 100 ML IV SCH (08:33)
[2016-10-30] MEDS: SODIUM CHLORIDE 0.9% INJ SCH (08:33)
[2016-10-30] MEDS: PROTONIX IV SCH (08:33)
[2016-10-30] MEDS: LANTUS SUBQ SCH (08:34)
--- NOTE | 2016-10-30 10:45 | PROGRESS NOTE ---
DATE: 10/30/2016 SUBJECTIVE: She is spontaneously awake, but does not really answer my questions. She does look at me. OBJECTIVE: Vital Signs: Blood pressure 96/49, heart rate 68, respirations 16, afebrile. Intake 1.8 L; output 2.8 L. General: On physical exam, no acute distress. Skin: Warm and dry. Eyes: Conjunctivae are pink. Neck: Neck veins are not appreciated. Heart: Regular without gallops. Lungs: Have equal breath sounds. No crackles. Shallow. Abdomen: Soft, nontender. Bowel sounds present. Extremities: Have 2+ edema with weeping. LABORATORY DATA: Sodium 142, potassium 4.9, chloride 105, bicarbonate 28, BUN 21, creatinine 0.9, hemoglobin 7.4. IMPRESSION: 1. End-stage kidney disease. Although she still has clinical volume overload, her blood pressure is marginally low and her oxygenation status is acceptable. As such, we will not dialyze her again today. 2. Electrolytes/acid base in target. 3. Anemia. Hemoglobin has fallen. Does not need transfusion. cc: Anil Bundy MD
[2016-10-30] MEDS ORDERED: NS 500 ML ONE (12:59)
[2016-10-30] MEDS: THIAMINE 100 MG in NS 50 ML IV SCH (18:21)
--- NOTE | 2016-10-30 18:43 | PROGRESS NOTE ---
DATE: 10/30/2016 PRESENT ILLNESS: The patient is being treated for an overwhelming pneumonia. She also has a streptococcal urinary tract infection. MEDICATIONS: This is day 6 for treatment with meropenem. Treatment with Levaquin and vancomycin have been discontinued earlier. PHYSICAL EXAMINATION: Vital Signs: Temperature is 97.4 degrees, pulse 67, respiration is 18, blood pressure 117/61. General: This is an ill-appearing middle-aged female. She is not intubated. She is not on BiPAP. She seems to be tolerating nasal oxygen okay. Lungs: Clear to auscultation. Cardiovascular: Regular heart rate. Abdomen: Soft and nontender. The patient has a triple-lumen catheter in place. The catheter site is not erythematous or swollen. LAB AND X-RAY: The chest x-ray shows improvement in the bibasilar infiltrates. The patient's creatinine is 0.9. The GFR is greater than 60. The patient's CBC shows a white count of 10,280, hemoglobin 7.4, and platelet count 37,000. Patient's blood gases show a pH of 7.44, a PO2 of 65, a pCO2 of 43. ASSESSMENT AND PLAN: Patient has pneumonia and is improving on meropenem therapy. COMORBIDITIES: Include diabetes mellitus, chronic kidney disease and iron deficiency. cc: Vicente Navarrete MD
[2016-10-31] MEDS: NEO-SYNEPHRINE 100 MG in NS 250 ML IV SCH (00:28)
[2016-10-31] MEDS: SOLU-CORTEF IV SCH ×3 (01:50→16:43)
[2016-10-31 04:25] LABS: ALLEN TEST YES; BE 3.2 mmoll (-3.0-3.0); BLOOD TYPE ARTERIAL; DRAW SITE R RADIAL; METHB 0.4 % (0.0-1.5); O2(CT) 15.8 mL/dL (15.0-23.0); PCO2(98.6) 37 mmHg (35-45); PO2(98.6) 79 mmHg (60-100); SAMPLE BLOOD; SAO2 95.8 % (95.0-100.0); THB 11.8 g/dL (11.5-17.4); pH(98.6) 7.47 (7.35-7.45)
[2016-10-31 04:28] LABS: MODALITY CANNULA
--- NOTE | 2016-10-31 04:29 | PROGRESS NOTE ---
DATE: 10/30/2016 SUBJECTIVE: Today Ms. Mi is stable. She is a little bit more interactive than before. OBJECTIVE: Vital signs: Blood pressure is 97/52, pulse of 65. Respiration is 19. Temperature is 98.1. The patient is saturating 100% on 2 liters of oxygen. General: Ms. Mi is a 61- year-old female who is in bed, did not seem in any distress. HEENT: Mucosa is pink and moist. Anicteric and acyanotic. Neck: Supple. Chest: Good air entry bilaterally with some bibasilar crepitations. Cardiovascular: Regular rate and rhythm. No murmurs. Abdomen: Soft, distended, but nontender. There is an old infraumbilical surgical scar. Extremities: About 2+ pedal edema. Central nervous system: Patient is awake, is slightly drowsy, but is easily arousable. Follows some basic commands. Is able to nod yes or no to pain. Will withdraw very actively to pain. LABORATORY DATA: WBC is 10.28. Hemoglobin is 7.4, platelet count of 37. There is no shift to sides on peripheral smear. Chemistry reviewed. Completely fine. Intake and output: Urine output continues to be zero. Patient had ultrafiltration; two thousand eight hundred was removed. Patient is still positive of fluid overload. ASSESSMENT: 1. Acute hypoxemic respiratory failure. Patient is status post extubation. Today is day 2 Doing fine. Tolerating normal nasal cannula oxygenation. 2. Septic shock. Patient is on Levophed. Also on IV antibiotics. Today is day 6 on meropenem. We plan to complete 10 days of antibiotics. We have discontinued levophed and vancomycin. 3. Bandemia with thrombocytopenia. I think this is all related to sepsis. However, disseminated intravascular coagulation is also suspected. Hematology/Oncology is on board. 4. Anasarca. As I said, patient has extremely positive fluid overload. She has been getting ultrafiltration with dialysis. We will continue with recommendations from Nephrology. 5. Acute on chronic kidney disease. 6. Hyperglycemia, likely from steroids. 7. Adrenal insufficiency. Patient is on IV steroid. We are going to reduce dose to 50mg IV q. eight hourly. 8. Critical illness polymyoneuropathy. We will order PT for range of movement to help with early mobilization. 9. Nutritional needs. Patient is currently getting NG tube feeding. cc: Daniel Castro MD MTDD
[2016-10-31 05:23] LABS: INR 1.17; PROTIME 12.4 Seconds (9.2-11.7); PTT 28.1 Seconds (22.0-36.0)
[2016-10-31 05:24] LABS: BASO% 0.1 % (0.0-0.8); HEMATOCRIT 35.7 % (37.0-47.0); HEMOGLOBIN 11.7 g/dL (12.0-16.0); IMM GRAN# 0.21 X1000 (0.0-0.04); IMM GRAN% 1.5 % (0.0-0.5); LYMPH# 0.12 X1000 (1.2-3.4); LYMPH% 0.8 % (20.5-51.1); MANUAL DIFF NEEDED? YES; MCH 30.5 PG (27-31); MCHC 32.8 g/dL (33-37); MONO# 0.34 X1000 (0.11-0.59); MONO% 2.4 % (1.7-9.3); NEUT% 95.2 % (42.2-75.2); PLT 66 X1000 (130-400); RBC 3.84 XMIL (4.2-5.4)
[2016-10-31 05:29] LABS: MAGNESIUM 1.8 mg/dL (1.5-2.7)
[2016-10-31 05:54] LABS: CALCIUM 9.1 mg/dL (8.8-10.2); POTASSIUM 5.3 mmol/L (3.5-5.1)
[2016-10-31] MEDS: SYNTHROID IV SCH (06:00)
[2016-10-31] MEDS: HUMALOG SUBQ SCH ×4 (06:01→21:19)
[2016-10-31 06:05] LABS: BANDS 6 % (0-1); LYMPHS 2 % (21-51); MONO 2 % (1-9)
--- NOTE | 2016-10-31 06:08 | Diag Imaging Result Document ---
PROCEDURE NAME: CHEST-1 VIEW - 10/31/2016 PORTABLE CHEST: COMPARISON: Compared to 10/30/2016. FINDINGS: No change in the nasogastric tube or left subclavian line. There is [id number] sized bilateral pleural effusions with basilar atelectasis. There could be underlying infiltrates as well. The heart is not enlarged. The overall appearance of the chest is quite similar to that of the prior exam. IMPRESSION: Stable chest.
[2016-10-31] MEDS: MERREM 500 MG in NS 50 ML IV SCH ×3 (06:33→22:35)
[2016-10-31] MEDS ORDERED: HEPARIN ONE (08:12)
[2016-10-31] MEDS ORDERED: NS 2,000 ML ONE (08:12)
[2016-10-31] MEDS ORDERED: ALBUMIN 25% ONE (08:39)
[2016-10-31] MEDS: PROTONIX IV SCH (10:07)
[2016-10-31] MEDS: SODIUM CHLORIDE 0.9% INJ SCH (10:07)
[2016-10-31] MEDS: LANTUS SUBQ SCH (10:08)
[2016-10-31] MEDS: EPOGEN SUBQ SCH (10:08)
--- NOTE | 2016-10-31 10:26 | PROGRESS NOTE ---
DATE: 10/31/2016 SUBJECTIVE: She is awake and alert today, and able to ask and answer questions. OBJECTIVE: Vital Signs: Blood pressure 123/66, heart rate 71, respirations 14, afebrile. General: She is a chronically ill, middle-aged woman in no acute distress. Skin: Warm and dry. HEENT: Pale. Conjunctivae are pink. Oropharynx is moist. Neck: Neck veins are not distended. Heart: Regular. Lungs: Have equal breath sounds. No crackles. Abdomen: Soft, nontender. Bowel sounds present. Extremities: Have 2+ edema. No clubbing or cyanosis. IMPRESSION: End-stage kidney disease. I discussed this with her. She has been opposed to dialysis for years. Having discussed her case with her , we opted to begin dialysis and discuss it with her when she is stable. It is not clear to me that she is understanding, but we will continue to treat her frequently and try to manage her volume status, and help her to improve physically and mentally, and then we can discuss this in more depth. cc: Anil Bundy MD
--- NOTE | 2016-10-31 16:20 | PROGRESS NOTE ---
DATE: 10/31/2016 SUBJECTIVE: Today Ms. Mi referred to be doing a little better. She denies any pain. She looks a little bit more interactive today. She does not want any food. OBJECTIVE: Vital signs: Blood pressure is 113/57, pulse of 71, respirations 14, temperature is 97.8 degrees. General Examination: Ms. Mi is a 61-year-old, female. She looks a little older than her age. She was in bed, in no distress. HEENT: Mucosa is pink and moist. Anicteric. Acyanotic. Neck: Supple. Chest: Positive for crackles. Cardiovascular: Regular rate and rhythm. Abdomen: Soft. Extremities: About 3+ pedal edema. 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 Seems to understands and is able to say a few things. Appears hoarse. Follows some basic commands. LABORATORY DATA: The WBC is 14.13, hemoglobin is 13.7, platelet count is 66,000. Chemistry is reviewed. Glucose is 305. ASSESSMENT: 1. Acute hypoxemic respiratory failure. Patient is day 3 post extubation. 2. Septic shock. This is improved. Patient continues to be on IV antibiotics. So far, blood cultures have been negative. 3. Bandemia with thrombocytopenia. We think this is related to sepsis with questionable DIC. Hematology/Oncology is on board. Platelets continued to be improving. 4. Anasarca. Nephrology is on board. Patient continues to get dialysis. 5. Altered mental status, likely related to critical illness. The patient seems to be progressively gaining sensorium. She is more interactive today. We will continue to follow that up. 6. Hyperglycemia, likely from steroids. We will continue with insulin regimen. 7. Adrenal insufficiency. Noted. 8. Critical illness, poly-neuromyopathy. Patient will continue with PT. 9. Nutritional needs. Patient is on nasogastric tube feedings. I think Ms. Mi is relatively stable. She continues to be needing dialysis, since she does not have any urine output and she continues to be fluid overloaded. I think in the residential, she would probably need dialysis at the time of discharge, until the kidneys kick in if they are going to. We are going to get a swallow evaluation to see what consistency of food she can get and discussed about future disposition plan with the . I would think that Ms. Mi would need more days in acute care, not necessarily in hospital, but I think she will need to be in an LTACH, where she will be meeting some of the critical needs, as well as intensive inpatient rehabilitation. cc: Daniel Castro MD
--- NOTE | 2016-10-31 18:23 | PROGRESS NOTE ---
DATE: 10/31/2016 PRESENT ILLNESS: The patient is being treated for an overwhelming pneumonia. She also had a streptococcal urinary tract infection. MEDICATIONS: The patient is receiving meropenem. This is day 7 of treatment with that agent. Her treatment for the streptococcal urinary tract infection has been completed. PHYSICAL EXAMINATION: Vital Signs: Temperature is 97.7 degrees, pulse 70, respirations 18, blood pressure 140/76. General: An ill-appearing, elderly female who is in no acute distress. Lungs: Scattered rhonchi bilaterally. Cardiovascular: Heart rate was regular. Abdomen: Soft and nontender. LAB AND X-RAY: There is no new x-ray today. The lab shows a CBC with a white count of 14,130, hemoglobin 11.7, and platelet count 66,000. Blood gases show a pH of 7.47, PO2 of 79, and pCO2 of 37. Creatinine is 1.4. GFR is 38. ASSESSMENT AND PLAN: This is day 7 of treatment for the patient's pneumonia which is improving on meropenem therapy. COMORBIDITIES: Include diabetes mellitus, chronic kidney disease and iron deficiency. cc: Vicente Navarrete MD
[2016-10-31] MEDS: THIAMINE 100 MG in NS 50 ML IV SCH (18:29)
[2016-10-31] MEDS: D50W SYRINGE IV PRN (20:13)
[2016-11-01] MEDS: SOLU-CORTEF IV SCH ×3 (02:01→17:15)
[2016-11-01 04:54] LABS: BASO% 0.1 % (0.0-0.8); HEMATOCRIT 33.6 % (37.0-47.0); HEMOGLOBIN 10.9 g/dL (12.0-16.0); IMM GRAN% 0.7 % (0.0-0.5); LYMPH# 0.15 X1000 (1.2-3.4); LYMPH% 1.1 % (20.5-51.1); MANUAL DIFF NEEDED? YES; MCH 30.4 PG (27-31); MCHC 32.4 g/dL (33-37); MCV 93.9 FL (81-99); MONO# 0.38 X1000 (0.11-0.59); MONO% 2.8 % (1.7-9.3); MPV 12.5 FL (7.4-10.4); NEUT% 95.3 % (42.2-75.2); PLT 71 X1000 (130-400); RBC 3.58 XMIL (4.2-5.4)
[2016-11-01 05:02] LABS: INR 1.13; PTT 27.8 Seconds (22.0-36.0)
[2016-11-01 05:03] LABS: EOS 2 % (1-10); LYMPHS 2 % (21-51); MONO 2 % (1-9)
[2016-11-01 05:25] LABS: AGAP 7; BUN 21 mg/dL (8-22); CALCIUM 8.8 mg/dL (8.8-10.2); CHLORIDE 103 mmol/L (98-107); COSMO 282; POTASSIUM 5.4 mmol/L (3.5-5.1); SODIUM 140 mmol/L (136-145); TCO2 30 mmol/L (25-35)
[2016-11-01] MEDS: SYNTHROID IV SCH (06:26)
[2016-11-01] MEDS: SODIUM CHLORIDE 0.9% INJ PRN (06:26)
[2016-11-01] MEDS: HUMALOG SUBQ SCH ×4 (06:27→20:19)
[2016-11-01] MEDS: MERREM 500 MG in NS 50 ML IV SCH ×3 (06:30→22:39)
--- NOTE | 2016-11-01 07:30 | Diag Imaging Result Document ---
PROCEDURE NAME: CHEST-PORTABLE - 10/31/2016 AP CHEST AND ABDOMEN FOR NG TUBE PLACEMENT: FINDINGS: The NG tube is either in the distal stomach or duodenum. There is an endotracheal tube with its tip at the thoracic inlet and a left subclavian central venous catheter with its tip in the right atrium. There is some pleural fluid bilaterally. There is some apparent atelectasis or pneumonia in the left lower lobe and probably also in the left upper lobe. IMPRESSION: NG tube in the stomach.
--- NOTE | 2016-11-01 07:33 | Diag Imaging Result Document ---
PROCEDURE NAME: CHEST-1 VIEW - 11/01/2016 AP PORTABLE CHEST AT 0500 HOURS: FINDINGS: There are bilateral pleural effusions. There is atelectasis or fibrosis in the perihilar region of the left upper lobe and to some extent elsewhere. Compared to the previous study of 10/31/2016, there has probably been no significant change considering differences in technique. IMPRESSION: Bilateral pleural effusions and subsegmental atelectasis.
--- NOTE | 2016-11-01 08:09 | Diag Imaging Result Document ---
PROCEDURE NAME: CHEST-PORTABLE - 10/31/2016 AP CHEST AND ABDOMEN: NG tube placement. FINDINGS: The NG tube is in the distal stomach or duodenum. There is a nonspecific bowel gas pattern. The tip of the double lumen catheter is noted on the right side in the pelvis probably in the common iliac vein. There is a left subclavian central venous catheter with its tip in the right atrium. There is atelectasis or fibrosis in the perihilar regions bilaterally and in the left lower lobe. There is apparent left and probable right pleural effusion. IMPRESSION: NG tube as described.
[2016-11-01] MEDS: SODIUM CHLORIDE 0.9% INJ SCH (10:11)
[2016-11-01] MEDS: LANTUS SUBQ SCH (10:11)
[2016-11-01] MEDS: PROTONIX IV SCH (10:11)
--- NOTE | 2016-11-01 11:53 | PROGRESS NOTE ---
DATE: 11/01/2016 SUBJECTIVE: Today Ms. Mi referred to be doing a little better. Continues to be slightly confused, but she is more lucid and more interactive than days before. OBJECTIVE: Vital signs: Blood pressure is 140/72, pulse of 63, respiration is 14 and temperature 97.6 degrees. General: Ms. Mi is a 61-year-old, female. She was in bed not seemingly distressed. HEENT: Mucosa is pink and moist. Anicteric. Acyanotic. Neck: Supple. Chest: Good air entry bilateral. A few bibasilar coarse crepitations. Cardiovascular: Regular rate and rhythm. Abdomen: Soft, nontender. No hepatosplenomegaly. Extremities: About 3+ to 4+ pedal edema. INSTRUCTIONAL FACILITATOR: Patient is awake. He is oriented to person and to place. Disoriented to time. She is able to follow some basic commands, but kind of slow in response. LABORATORY DATA: 1. WBC 13.67, hemoglobin is 10.9, platelet count of 71. There are no bands. 2. Chemistry: Sodium is 140, potassium is 5.0, chloride is 103, bicarbonate is 30, glucose is 88. ASSESSMENT: 1. Acute hypoxemic respiratory failure day 4 post extubation. 2. Septic shock. This is improved. Blood cultures have been negative. 3. Thrombocytopenia, progressively getting better. We think this is mainly due to sepsis and critical care illness. There is also questionable disseminated intravascular coagulation. Hematology/Oncology is on board. 4. Anasarca. Patient gets ultrafiltration with dialysis. 5. Altered mental status related to critical illness. Sensorium is progressively improving. 6. Adrenal insufficiency. 7. Critical illness poly neuromyopathy. 8. Nutritional needs. 9. Diarrhea, which we assume is due to the tube feedings. Patient will however do Clostridium difficile to make sure there is not any infection because patient has been on antibiotics for some time. 10. Pneumonia. Patient is being treated with intravenous meropenem (today is day 8). She is being followed up by Dr. Navarrete. 11. Hypothyroidism. Will continue with the thyroid supplements. PLAN: In general, Ms. Mi is a 61-year-old, female. She is in bed. Still looks ill, but she is progressively improving. Her sensorium is also getting a little more clear and she is more interactive. There is some skin breakdown around the perianal area. There are also some skin tags consistent with hemorrhoids. I am reluctant to put in a rectal tube because that will make the sphincter worse. Wound Care team is on board and helping as to manage the perianal skin breakdown. I spoke extensively with the yesterday about LTAC. He did tell me that he had gone to see the LTAC himself; he is okay with the services over there. So, I think we will be able to discharge the patient once it is okay with all the other subspecialties that are involved in her care. Specifically, the patient is getting dialysis through [facility] and want to make sure it is okay with Nephrology to let the patient go with that access. We will also get dietitian to re-evaluate the patient on the type of tube feeding to see if that will make any difference with the diarrhea, especially if the cultures come back non infectious. cc: Daniel Castro MD MTDD
--- NOTE | 2016-11-01 17:23 | PROGRESS NOTE ---
DATE: 11/01/2016 SUBJECTIVE: Patient resting in bed. She is awake. She is extremely hard of hearing but she does communicate appropriately and introduces me to her son. OBJECTIVE: Vital Signs: Temperature 97.6 degrees, pulse 63, respiratory rate 14, blood pressure 140/79. Intake 928 mL, output 2.9 L. PHYSICAL EXAMINATION: General: This is a middle-aged female, resting in bed. She is chronically ill-appearing. She is in no acute distress. HEENT: Normocephalic, atraumatic. Oral mucosa is moist. Neck: Supple. Trachea midline. There is no JVD. Cardiovascular: Regular rate and rhythm. No murmur appreciated. Pulmonary: She has equal excursion. She is clear bilaterally. Abdomen: Soft, flat. Positive bowel sounds. : Not inspected. She has a Barboza catheter with scant urine. Extremities: Wasted. No clubbing, cyanosis. She does have 2+ edema. Integumentary: Skin has ecchymoses noted bilateral upper and lower extremities as well as across the chest. LAB DATA: WBC of 13.6, hemoglobin 10.9, hematocrit 33.6, and a platelet count of 71,000. Sodium 140, potassium 5.4, CO2 30, BUN 21, creatinine 0.9. Calcium 8.8. ASSESSMENT AND PLAN: 1. End-stage renal disease management. Continue ongoing discussions with the family and the patient regarding her wishes to continue dialysis. Also plan to dialyze her tomorrow. 2. Electrolytes, acid-base balance, anemia. These are all stable. Seen, data reviewed, discussed with Bryant Cagle on 11/02/15. I agree with the above assessment and plan of care. rg Dictated by KALYN Gomez for Anil Bundy MD cc: Anil Bundy MD [facility]
[2016-11-01] MEDS: THIAMINE 100 MG in NS 50 ML IV SCH (18:16)
--- NOTE | 2016-11-01 18:23 | PROGRESS NOTE ---
DATE: 11/01/2016 PRESENT ILLNESS: The patient is receiving antibiotics for an overwhelming pneumonia. She also has a streptococcal urinary tract infection. MEDICATIONS: This is day 8 of receiving meropenem. PHYSICAL EXAMINATION: Vital Signs: Temperature is 97.4 degrees, pulse 68, respirations 12, blood pressure 134/75. General: This is an ill-appearing elderly female, who is in no acute distress. She has been talking today but she is very weak. Lungs: There were rhonchi bilaterally. Cardiovascular: The patient had a regular heart rate. Abdomen: Soft and nontender. In the right groin the patient has a dialysis catheter. LAB AND X-RAY: There is no new x-ray for today. The lab data shows a creatinine of 0.9. GFR is greater than 60. CBC shows a white count of 13,670, hemoglobin 10.9, and platelet count 71,000. ASSESSMENT AND PLAN: The patient has pneumonia and my plan is to continue meropenem. This is day 8 of treatment with the antibiotic. Her urinary tract infection has been treated already. COMORBIDITIES: Diabetes mellitus, chronic kidney disease, and iron deficiency. cc: Vicente Navarrete MD
[2016-11-02] MEDS: SOLU-CORTEF IV SCH ×3 (01:23→16:55)
[2016-11-02 05:39] LABS: BASO% 0.1 % (0.0-0.8); HEMATOCRIT 35.5 % (37.0-47.0); HEMOGLOBIN 11.7 g/dL (12.0-16.0); IMM GRAN# 0.12 X1000 (0.0-0.04); IMM GRAN% 0.9 % (0.0-0.5); LYMPH# 0.17 X1000 (1.2-3.4); LYMPH% 1.2 % (20.5-51.1); MANUAL DIFF NEEDED? YES; MCV 93.9 FL (81-99); MONO% 3.6 % (1.7-9.3); MPV 11.8 FL (7.4-10.4); NEUT% 94.2 % (42.2-75.2); PLT 101 X1000 (130-400); RBC 3.78 XMIL (4.2-5.4)
[2016-11-02 05:47] LABS: INR 1.2; PROTIME 12.7 Seconds (9.2-11.7); PTT 28.9 Seconds (22.0-36.0)
[2016-11-02 05:54] LABS: BANDS 8 % (0-1); LYMPHS 4 % (21-51); MONO 2 % (1-9)
[2016-11-02] MEDS: SYNTHROID IV SCH (06:22)
[2016-11-02] MEDS: SODIUM CHLORIDE 0.9% INJ PRN (06:22)
[2016-11-02] MEDS: HUMALOG SUBQ SCH ×4 (06:33→21:24)
[2016-11-02] MEDS ORDERED: HEPARIN IV PRN (07:38)
[2016-11-02] MEDS ORDERED: TIGHT: 0.2 ML/HR MISC PRN (07:38)
[2016-11-02] MEDS ORDERED: NS 2,000 ML MISC PRN (07:38)
--- NOTE | 2016-11-02 07:39 | Diag Imaging Result Document ---
PROCEDURE NAME: CHEST-1 VIEW - 11/02/2016 ERECT AP PORTABLE CHEST AT 0535 HOURS: FINDINGS: There are bilateral pleural effusions. There is mild interstitial pulmonary edema. Compared to the previous study of 11/01/2016, the edema has improved slightly. IMPRESSION: Improved pulmonary edema. Bilateral pleural effusions.
[2016-11-02] MEDS: MERREM 500 MG in NS 50 ML IV SCH ×3 (08:56→23:49)
[2016-11-02] MEDS: EPOGEN SUBQ SCH (08:56)
[2016-11-02] MEDS: PROTONIX IV SCH (08:56)
[2016-11-02] MEDS: SODIUM CHLORIDE 0.9% INJ SCH (08:56)
[2016-11-02] MEDS: LANTUS SUBQ SCH (08:57)
[2016-11-02 09:27] LABS: CALCIUM 8.9 mg/dL (8.8-10.2); POTASSIUM 5.6 mmol/L (3.5-5.1)
--- NOTE | 2016-11-02 11:01 | PROGRESS NOTE ---
DATE: 11/02/2016 SUBJECTIVE: She complains of "burning hemorrhoids." No shortness of breath. No chest discomfort. OBJECTIVE: Vital Signs: Blood pressure 123/63, heart rate 64, respirations 11, afebrile. Intake and output: Intake 680 mL. Output 0. General: Chronically ill, no acute distress. Skin: Pale and dry. HEENT: Conjunctivae are pink. Neck: Neck veins are not distended. Heart: Regular with S4 gallop. No rubs or murmurs. Lungs: Have equal breath sounds. Shallow. No crackles. Abdomen: Soft, nontender. Bowel sounds present. Extremities: Have 2+ edema. No clubbing or cyanosis. LABORATORY DATA: Pending for today. IMPRESSIONS: 1. End-stage kidney disease. She will have her routine hemodialysis today. We will employ standard hemo instead of SLED and evaluate her response. 2. Electrolytes/acid base. No new data. 3. Hypotension. She is currently off of vasopressor agents and her blood pressure is 123/63. cc: Anil Bundy MD
[2016-11-02] MEDS ORDERED: NS 2,000 ML ONE (11:41)
[2016-11-02] MEDS ORDERED: ALBUMIN 25% ONE ×2 (13:12→13:19)
[2016-11-02] MEDS ORDERED: ALBUMIN 25% IV ONE (13:22)
--- NOTE | 2016-11-02 17:15 | PROGRESS NOTE ---
DATE: 11/02/2016 PRESENT ILLNESS: The patient is being treated for an overwhelming pneumonia and a streptococcal urinary tract infection. MEDICATIONS: The patient has been receiving meropenem now for 9 days. PHYSICAL EXAMINATION: Vital Signs: Temperature is 96.7 degrees, pulse 76, respirations 13, blood pressure 128/65. General: This is an ill-appearing, elderly female. She is much more alert now and is eating. Lungs: Scattered rhonchi bilaterally. Cardiovascular: Heart rate was regular. Thorax: Patient has an increased AP diameter to the chest. Abdomen: Soft and nontender. LAB AND X-RAY: CBC-WBC 13.77, hgb 11.7,platelets 101K. ABG-pH 7.43, p02 49, pCO2 44. Creatinine 1.6, GFR 23. Chest [id number] infiltrates and effusions. ASSESSMENT AND PLAN: 1. The patient has pneumonia and UTI. I plan to continue meropenem. This is day 9 of treatment with it. 2. Comorbidities: Diabetes mellitus, chronic kidney disease and iron deficiency. cc: Vicente Navarrete MD MTDD
--- NOTE | 2016-11-02 18:23 | DISCHARGE SUMMARY ---
ADMISSION DATE: 10/14/2016 DISCHARGE DATE: 11/02/2016 LENGTH OF STAY: 19 days. DISPOSITION: LTAC at [facility]. CONSULTATIONS DURING THIS ADMISSION: 1. GI was consulted. Patient was seen by Dr. Bustamante. 2. Id was consulted. Patient was seen by Dr. Navarrete. 3. Pulmonary Medicine was consulted. Patient was seen by Dr. Brewster. 4. Nephrology was consulted. Patient was seen by Dr. Bundy. 5. Surgery was consulted. Patient was seen by Dr. Milan. 6. HEM/ONC was also consulted and patient was seen by Dr. Simms. INVASIVE PROCEDURES DONE DURING THIS ADMISSION: 1. EGD was done by Dr. Bustamante on 10/18/2016 and it showed erosive gastritis grade 2, hiatal hernia and gastritis. There were also some duodenal ulcers in the duodenal bulb x2. Duodenitis in the duodenal bulb as well. 2. Left subclavian triple-lumen catheter was placed by Dr. Flores on 10/21/2016. 3. Ultrasound-guided femoral vein dialysis catheter was placed in by Dr. Becerril on 10/06/2016. 4. The patient has been getting dialysis since 10/23/2016. He had a total of 6 sessions, today will be day 7th. SIGNIFICANT MICROBIOLOGY DATA: Urine culture was positive for strep agalactiae on 10/24/2016, this is pansensitive. ADMISSION DIAGNOSES: 1. Hypoglycemia unresponsive.. 2. Diabetes mellitus type 1. 3. Hypotension. 4. Chronic kidney disease. 5. Hypothyroidism. DIAGNOSES AT TIME OF DISCHARGE: 1. Acute hypoxemic respiratory failure. The patient was intubated, stayed under the ventilator for about 12 days, successfully extubated on 10/28/2016. Today is day 5 post -extubation. 2. Septic shock. So far blood cultures have been negative. We assume this is from pneumonia. The patient has been treated with meropenem for 9 days. Anticipate to treat for a total of 14 days. 3. Thrombocytopenia. This is progressively getting better. We think it was as a result of critical illness when there is suppression versus sepsis versus possible DIC. This is improving. 4. Anasarca. Patient is getting ultrafiltration with dialysis. 5. Endstage renal disease. Patient got a Vas-Cath and is getting dialysis for now. 6. Adrenal insufficiency. We think this is probably transient due to sepsis. 7. Critical illness: Polyneuropathy. Patient will be needing physical rehabilitation. 8. Pneumonia. Patient continues to be on meropenem. 9. Hypothyroidism. She is on thyroid supplement. MEDICATIONS ON DISCHARGE: 1. Epogen. 2. Hydrocortisone 50 mg IV q.8. 3. Glargine 10 units subcutaneous daily. 4. Insulin sliding scale. 5. Levothyroxine 50 mcg IV daily. 6. Norepinephrine p.r.n. especially during dialysis. 7. Thiamine 100 mg daily. 8. Protonix 50 mg IV daily. 9. Meropenem 500 q.8. PRESENTING COMPLAINT: Low blood sugar. HISTORY OF PRESENTING COMPLAINT: Ms. Mi is a 61-year-old, female , who presented to the emergency department because her found her slumped over unresponsive. Upon presentation patient was found to have a glucose level of 23. She is diabetic on insulin. She was admitted to [facility] and found to have a hemoglobin level of 8.9 which dropped to 6.4. With Hemoccult positive patient was transferred from [facility] to [facility] for [facility]. During hospital stay, patient got EGD and was found to have 2 ulcers and some inflammation, and was started on PPI. However during the hospital stay the patient got complicated and developed pneumonia with acute respiratory distress. She was intubated for over a week and successfully extubated. Her kidney function did not really recover so she ended up having to be on dialysis. Patient was seen by multiple subspecialties during the hospital stay. Eventually she started showing some signs of improvement. Her hydration fluid overload status improved with ultrafiltration and her infectious pneumonia also improved with her antibiotics. At the time of discharge she is still a little critical but stable. Platelet count is improving. She will be on antibiotics for a total of 14 days, as I said today is day 9 for treatment of the pneumonia. She will also be needing aggressive physical rehabilitation and she will be needing progressive evaluation of her nutritional status. TIME SPENT FOR DISCHARGE: 36 minutes. cc: Daniel Castro MD MTDD
[2016-11-02] MEDS: THIAMINE 100 MG in NS 50 ML IV SCH (19:36)
[2016-11-02] MEDS: NEO-SYNEPHRINE 100 MG in NS 250 ML IV SCH (21:57)
[2016-11-03] MEDS: SOLU-CORTEF IV SCH ×2 (02:51→09:21)
[2016-11-03 05:17] LABS: ALLEN TEST YES; BE 4.3 mmoll (-3.0-3.0); BLOOD TYPE ARTERIAL; DRAW SITE R RADIAL; METHB 0.8 % (0.0-1.5); O2(CT) 12.7 mL/dL (15.0-23.0); PCO2(98.6) 44 mmHg (35-45); SAMPLE BLOOD; SAO2 86.9 % (95.0-100.0); THB 10.6 g/dL (11.5-17.4); pH(98.6) 7.43 (7.35-7.45)
[2016-11-03 05:19] LABS: MODALITY ROOM AIR; PO2(98.6) 49 mmHg (60-100)
[2016-11-03 05:24] LABS: BASO% 0.1 % (0.0-0.8); HEMATOCRIT 31.6 % (37.0-47.0); HEMOGLOBIN 10.2 g/dL (12.0-16.0); IMM GRAN# 0.11 X1000 (0.0-0.04); IMM GRAN% 0.8 % (0.0-0.5); LYMPH# 0.15 X1000 (1.2-3.4); LYMPH% 1.2 % (20.5-51.1); MANUAL DIFF NEEDED? YES; MCH 30.7 PG (27-31); MCHC 32.3 g/dL (33-37); MCV 95.2 FL (81-99); MONO# 0.53 X1000 (0.11-0.59); MONO% 4.1 % (1.7-9.3); MPV 11.5 FL (7.4-10.4); NEUT% 93.8 % (42.2-75.2); PLT 113 X1000 (130-400); RBC 3.32 XMIL (4.2-5.4)
[2016-11-03 05:26] LABS: INR 1.2; PROTIME 12.7 Seconds (9.2-11.7); PTT 32.1 Seconds (22.0-36.0)
[2016-11-03 05:49] LABS: BANDS 6 % (0-1); LYMPHS 2 % (21-51); MONO 4 % (1-9)
[2016-11-03 05:51] LABS: POTASSIUM 5.1 mmol/L (3.5-5.1)
[2016-11-03] MEDS: SYNTHROID IV SCH (06:34)
[2016-11-03] MEDS: SODIUM CHLORIDE 0.9% INJ PRN (06:34)
[2016-11-03] MEDS: HUMALOG SUBQ SCH (06:35)
--- NOTE | 2016-11-03 07:56 | Diag Imaging Result Document ---
PROCEDURE NAME: CHEST-1 VIEW - 11/03/2016 PORTABLE CHEST: COMPARISON: 11/02/2016. FINDINGS: There are findings of pulmonary edema which appear mildly increased in some areas but mildly decreased in others for little overall change. There are small bilateral pleural effusions which may have decreased mildly. There is no pneumothorax identified. Heart size is normal. Central venous catheter remains in place. IMPRESSION: Little overall change in pulmonary edema compared to prior.
[2016-11-03] MEDS: MERREM 500 MG in NS 50 ML IV SCH (08:00)
[2016-11-03] MEDS: SODIUM CHLORIDE 0.9% INJ SCH (08:16)
[2016-11-03] MEDS: PROTONIX IV SCH (08:16)
[2016-11-03] MEDS: LANTUS SUBQ SCH (08:18)
--- NOTE | 2016-11-03 10:19 | PROGRESS NOTE ---
DATE: 11/03/2016 SUBJECTIVE: Today, Ms. Mi referred to be doing a little better. She was up in the bed getting assistance for breakfast. OBJECTIVE: Vital signs are stable. Blood pressure is 148/68, pulse of 64, respirations 17, temperature 96.1 degrees. General: Ms. Mi is a 61-year-old female who looks older than her age. She is in bed in no distress. HEENT: Mucosa is pink and moist. Anicteric. Acyanotic. Neck is supple. Chest: Good air entry bilaterally. A few bibasilar crepitations. Cardiovascular: Regular rate and rhythm. No murmurs, no rubs. No gallops. Abdomen is soft. Extremities: About 2+ to 3 pedal edema. FRENCH TEACHER: Patient is awake, alert, follows commands. LABORATORY DATA: WBC is 13.0, hemoglobin is 10.2, platelet count of 113,000. Chemistry is reviewed. Completely normal except for creatinine of 1.6. The patient's I's and O's: Barboza catheter output is 5. Dialysis output 2600. The patient has an accumulative positive balance of 23,128. ASSESSMENT: 1. Acute hypoxemic respiratory failure. The patient is day 6 postop, tolerating nasal cannula oxygenation. 2. Septic shock. Cultures negative. The patient is no more on pressors. 3. Thrombocytopenia likely from critical illness/sepsis. Questionable disseminated intravascular coagulopathy. This is improving. 4. Anasarca. The patient is getting ultrafiltration. 5. Endstage renal disease. The patient get dialysis. Nephrology is on board. 6. Altered mental status due to critical illness has improved. 7. Adrenal insufficiency. We will continue with hydrocortisone. We will now cut down from 50 t.i.d. to 25 t.i.d. and progressively switch this to p.o. at a lower dose. 8. Pneumonia. We think this is hospital associated. She is currently on meropenem. Today is day 10. I think the plan is to treat for a total of 14 days. 9. Hypothyroidism. The patient is on thyroid supplements. 10. Failure to thrive/protein calorie malnutrition. We will supplement this with Ensure and encourage the patient to eat some more. In general, I think Ms. Mi is progressively getting better. She is going to be moved to LTAC as soon as there is bed available. She will be needing to complete her antibiotic therapy. She also will be needing intense physical rehabilitation and intense nutritional support. cc: Daniel Castro MD MTDD
[2016-11-03 13:06] VITALS: BP 113/57
[2016-11-03] MEDS ORDERED: SOLU-CORTEF IV SCH (17:00)
--- NOTE | 2016-11-06 02:29 | PROVIDER DOCUMENTATION ---
This chart was entered by Isa Garza Scribe, acting as scribe for Marcos Chambers MD. HPI-General Adult - General Chief Complaint: Low Blood Sugar Stated Complaint: AMS Time Seen by Provider: 10/14/16 09:03 Source: patient Allergies/Adverse Reactions: Patient Allergies Allergy/AdvReac Type Severity Reaction Status Date / Time aspirin Allergy Severe NAUSEA Verified 06/22/14 09:57 iodine Allergy Severe SWELLING Verified 06/22/14 09:57 shellfish derived Allergy Severe SWELLING Verified 10/15/16 17:38 Home Medications: Home Medication List Medication Instructions Recorded Confirmed Last Taken Type Levothyroxine [Synthroid] 100 microgm PO DAILY 04/28/14 10/14/16 06/23/14 04:00 History Ergocalciferol (Vitamin D2) 50,000 unit PO DIRECTED 06/22/14 10/14/16 History [Vitamin D2] Epoetin Ramin [Epogen] 10,000 unit SUBQ [id number]@0900 vial 11/02/16 Unknown Rx Hydrocortisone Sod Succinate 50 mg IV Q8H vial 11/02/16 Unknown Rx [Solu-Cortef] Pantoprazole [Protonix] 40 mg IV Q24H vial 11/02/16 Unknown Rx - History of Present Illness -Gen Adult Nature of Presenting Problems: 61 yo F presents to the ER with complaint of AMS. Pt's found her slumped over this morning and not responding, describes it as an "insulin reaction", states she had a similar episode x4 months ago. states last time he saw her at normal baseline was last night when they had sex. FSBS upon arrival is 23. describes that a few years ago when she was taking Neurotin it would cause her to have similar episodes to this. Onset/Duration: reports: this morning - Diabetes Related Context Context: reports: low blood sugar, change in mental status Review of Systems - Adult - REVIEW OF SYSTEMS - ADULT ROS:: ROS per family Constitutional: denies: chills, fever Eyes: reports: no symptoms reported Ears, Nose, Mouth & Throat: reports: no symptoms reported Cardiovascular: reports: no symptoms reported Respiratory: denies: cough, shortness of breath Gastrointestinal: denies: diarrhea, vomiting Genitourinary: reports: no symptoms reported Musculoskeletal: reports: no symptoms reported Integumentary: reports: no symptoms reported Neurological: reports: see HPI, other (AMS) Psychiatric: reports: no symptoms reported Endocrine: reports: no symptoms reported Hematologic/Lymphatic: reports: no symptoms reported Allergic/Immunologic: reports: no symptoms reported All Other Systems: Reviewed and Negative Past History - Adult - PAST MEDICAL HISTORY-ADULT Review of Records: reports: Nursing Assessment Review, Medications Reviewed Obstetrical/Gynecological: reports: other (Cervial Ca) Genitourinary: reports: kidney disease Endocrine/Immune: reports: anemia, Diabetes, thyroid disorder - PRIOR SURGERIES/PROCEDURES Surgical/Procedure History: reports: BTL, , orthopedic (extremity) ( toe amputation) - IMMUNIZATION STATUS Childhood Immunizations: See Nurse Assessment Flu Vaccine: See Nurse Assessment - SOCIAL HISTORY Smoking: cigarettes, less than 1 pack/day Provider spent 3-5 mins advising pt. on dangers of tobacco.: Discussed manners to quit use, and f/u contacts for add'l counseling. Physical Exam-General - PHYSICAL EXAM-ADULT Exam Limited by: AMS Initial Vital Signs Reviewed: Yes - CONSTITUTIONAL General Appearance: thin, lethargic. negative: appears well - NECK Neck: supple, normal inspection - CARDIOVASCULAR Cardiovascular: normal peripheral pulses, regular rate, rhythm - MUSCULOSKELETAL Extremity: normal capillary refill. negative: swelling - SKIN Integumentary: other (lentigo to L side of face). negative: normal color (pale) - NEUROLOGIC Neurologic: other (responds to pain). negative: grossly normal Progress - PLAN OF CARE/RESULTS Progress/Plan/Lab Results: Vital Signs - 8 hr 10/14/16 08:49 Respiratory Rate 16 Blood Pressure 85/44 Orders Category Date Time Status Cardiac Monitoring DIRECTED Care 10/14/16 08:53 Active Finger Stick Blood Sugar (ED) DIRECTED Care 10/14/16 08:53 Active Oxygen Therapy- ED Nursing DIRECTED Care 10/14/16 08:53 Active Saline Loc NOW Care 10/14/16 08:53 Active ABG [RESP] Routine Lab 10/14/16 08:53 Ordered ALCOHOL BLOOD Stat Lab 10/14/16 08:53 Ordered CBC WITH ELECTRONIC DIFF [HEME] Stat Lab 10/14/16 08:53 Ordered CK PROFILE [SP CHEM] Stat Lab 10/14/16 08:53 Ordered COMPREHENSIVE METABOLIC PANEL [CHEM] Stat Lab 10/14/16 08:53 Ordered LACTATE, PLASMA [CHEM] Stat Lab 10/14/16 08:[address] Or[address]IME WITH INR PL [COAG] Stat Lab 10/14/16 08:[address] [COAG] Stat Lab 10/14/16 08:53 Ordered TROPONIN T Stat Lab 10/14/16 08:[address] W/POSS RFLX CULT [URINALYSIS] Stat Lab 10/14/16 08:53 Uncollected Dextrose 5%-0.9% NaCl Inj [D5 Ns] 1,000 ml Med 10/14/16 08:56 Discontinued .ROUTE As Directed Dextrose 50% Syringe [D50w Syringe] Med 10/14/16 08:45 Discontinued 50 ml .ROUTE .STK-MED ONE Dextrose 50% Syringe [D50w Syringe] Med 10/14/16 08:46 Discontinued 50 ml .ROUTE .STK-MED ONE Dextrose 50% Syringe [D50w Syringe] Med 10/14/16 08:53 Discontinued 50 ml IV NOW ONE Pulse Oximetry Stat Oth 10/14/16 08:53 Active EKG [EKG] Stat Ther 10/14/16 08:53 Ordered Result Diagrams: 11/03/16 04:48 11/03/16 04:48 - EKG 1 Time of EKG reading by physician:: 09:36 EKG Read and Signed by:: Marcos Chambers EKG Interpretation (*Must complete 3 of following elements*): Abnormal Rate: 64 Rhythm: normal sinus rhythm QRS: other (low voltage) OR Interval: normal ST Wave: non-specific ST changes (st&t wave abnormality, consider inferior ischemia) Comments: septal infarct, age undetermined - CONSULTS/PCP/HOSPITALIST Notification #1 *Consult/PCP/Hospitalist*: Dr. Rashid Time Discussed: 10:18 Consult Disposition: Admit Departure - Departure Time of Disposition Decision: 10:55 DIAGNOSIS: Septic shock Disposition: ADMITTED INPATIENT 09 Certified Medical Emergency: Emergent Condition: Stable - Critical Care Note This patient required my direct & personal management of CC.: No This chart was documented by the indicated scribe, (Isa Garza Scribe) and accurately reflects the services I performed and decisions made by me, Marcos Chambers MD, as attested by the provider's signature.
--- NOTE | 2016-11-18 18:27 | PROGRESS NOTE ---
DATE: 10/19/2016 SUBJECTIVE: The patient is sitting up eating some breakfast and is feeling better. OBJECTIVE: Temperature 97.1 degrees, pulse rate 75, respirations 20, blood pressure 109/45. HEENT: PERRLA. Conjunctival pallor present. Neck: Supple. Trachea midline. Heart: Normal first and second heart sounds. Lungs: Bilateral rales. Abdomen: Benign. No organomegaly. No ascites. Extremities: Unremarkable. DIAGNOSTICS: She had an EGD done which showed gastritis and esophagitis and hiatal hernia. There is no active bleeding patient does have duodenal ulcers. LABORATORY DATA: Hemoglobin 11, hematocrit 34. Creatinine is 2.7. IMPRESSION: 1. Altered mental status secondary to metabolic encephalopathy and hypocalcemia, which is better. 2. Chronic renal insufficiency. Stable. 3. Blood loss anemia. Endoscopy did not reveal any active bleeding. Continue gastrointestinal prophylaxis. 4. Malnutrition. 5. We will the lungs again. cc: Marisela Young MD
--- NOTE | 2016-11-18 18:28 | PROGRESS NOTE ---
DATE: 10/23/2016 SUBJECTIVE: Patient has turned critically sick, on vent and having hemodialysis. Turned much worse the last couple of days. OBJECTIVE: Vital signs: Blood pressure 120/90, pulse 90, respirations 18, temperature 96. HEENT: Mucosa pale. Anicteric. Neck: Supple. Lungs: The patient has bilateral rhonchi and coarse respirations. She is intubated. Abdomen: Soft, nondistended. Extremities: 3+ pedal edema. Tips of the feet appears to be purplish or cyanotic. LABORATORY DATA: WBC 13, hemoglobin 8 which has dropped, platelet count dropped to 46,000. Blood cultures are negative. IMPRESSION: 1. Gastrointestinal bleed. Stable. No signs of bleeding. 2. Acute respiratory failure, currently on ventilator. 3. Septic shock. 4. Metabolic acidosis. 5. Acute on chronic renal failure. PLAN: The patient took a turn to worse. We will continue aggressive gastrointestinal prophylaxis so she will not bleed with all this additional stress. She already has 2 duodenal ulcers and gastritis. We will watch her carefully. The drop in hematocrit could be due to hemodilution. The patient has developed edema from volume. Diuresis as needed. We will follow as needed. -4 cc: Marisela Young MD
== END 2016-11-03 13:45 ==
LOC: P.ED 08:43 → P.ICU 13:50 → SUATTDRO 13:50 → P.ICU 15:37 → ICU 10-16 13:31
PROVIDERS: ATTEND Internal Medicine